=== PATIENT | female | born 1945 | race Caucasian/White ===

== ENCOUNTER 2020-10-23 07:05 | Outpatient (CLI) | payer OTHER, SELFPAY ==
--- NOTE | ~2020-10-23 | MM_ITS ---
EXAMINATION: MM screening tierra BI w jimmy HISTORY: Screening TECHNIQUE: Craniocaudal and mediolateral oblique 3-D tomosynthesis images were obtained and synthetic 2-D images were generated. CAD analysis was submitted and interpreted. COMPARISON: 10/06/2019 BREAST PARENCHYMAL COMPOSITION: There are scattered areas of fibroglandular density. FINDINGS: There is no evidence of suspicious mass, calcification, or architectural distortion to sugg est malignancy in either breast. There has been no suspicious interval change. IMPRESSION: 1. No mammographic evidence of malignancy. 2. Recommend routine screening mammography in one year. BI-RADS Category 1: Negative Reviewed, dictated and finalized at location A. CAL ASSISTANT SECRETARY
== END 2020-10-23 07:06 | disposition home or self-care (01) ==
LOC: ANHIMG 07:10
PROVIDERS: PCP Physician Assistant; Visit Provider Physician Assistant
DX: Z12.31 Encounter for screening mammogram for malignant neoplasm of breast (principal)
CPT/HCPCS: 77063; 77067

== ENCOUNTER → 2021-02-06 08:39 | Outpatient (CLI) | payer OTHER, SELFPAY ==
--- NOTE | ~2021-02-06 | XR_ITS ---
XR cervical spine 4-5V DATE: 02/06/2021 09:14 INDICATION: Posterior neck pain TECHNIQUE: Lateral, swimmer's, AP, odontoid views COMPARISON: None FINDINGS: There is minimal anterolisthesis at C3-4. There is 2.5 mm anterolisthesis at C4-5. There is severe degenerative disease at C5-6 and C6-7. C1 and C2 are normally aligned and the odontoid process is intact. No fracture or dislocation or locked facet is evident. No prevertebral soft tissue swelling. There is degenerative change of the apophyseal joints throughout the cervical spine. There is prominent uncovertebral joint spurring at C5-6 and C6-7 bilaterally. IMPRESSION: Minimal anterolisthesis at C3-4 2.5 mm anterolisthesis at C4-5 Severe degenerative disc disease and prominent uncovertebral joint spurring at C5-6 and C6-7 Degenerative change at the apophyseal joints throughout the cervical spine Reviewed, dictated and finalized at location B.
--- NOTE | ~2021-02-06 | XR_ITS ---
XR lumbar spine 2-3V DATE: 02/06/2021 09:14 INDICATION: Chronic back pain TECHNIQUE: AP, lateral, coned lateral lumbosacral views COMPARISON: None FINDINGS: There is diffuse osteopenia. There is mild levoscoliosis of the thoracolumbar spine. The lumbar pedicles are intact. No fracture or bone destruction is evident. There is moderate degenerative disc disease of the lumbar interspaces and severe degenerative disc di sease at L5-S1. The sacroiliac joints are intact. IMPRESSION: Diffuse osteopenia Multilevel degenerative disc disease, most severe at L5-S1 Reviewed, dictated and finalized at location B.
== END ==
PROVIDERS: PCP Physician Assistant; Visit Provider Physician Assistant
DX: M51.37 Other intervertebral disc degeneration, lumbosacral region (principal); M85.88 Other specified disorders of bone density and structure, other site; M50.322 Other cervical disc degeneration at C5-C6 level; M50.323 Other cervical disc degeneration at C6-C7 level
CPT/HCPCS: 72050; 72100

== ENCOUNTER 2021-07-28 20:34 | Emergency (ER) | payer OTHER, SELFPAY ==
[2021-07-28 20:35] VITALS: BP 172/103; PULSE 74; RESP 17; TEMP 36.1; O2SAT 95
--- NOTE | 2021-07-28 20:45 | PC.NURSE ---
Pt reports she was in [facility] and bent down to pet a dog, which then bit her in the face and ran away. unsure of breed, possibly a pit bull hanson or black in color. unknown if collar on dog; unknown if dog utd on shots. pt has wound directly on RIGHT eyebrow. bleeding present. gauze provided to apply pressure. pt appears anxious.
[2021-07-28] MEDS: TETANUS,DIPHTHERIA,AC PERTUSSIS ADULT (0.5 ML) BOOSTRIX IM (21:36)
[2021-07-28] MEDS: AMPICILLIN SULB 3 GM/NS 100 ML 3 GM/100 ML VIAL IVPB (21:37)
--- NOTE | 2021-07-28 21:54 | ED.GENADULT ---
HPI - General Adult General Chief complaint: Animal Bite Stated complaint: dog bite, facial wound Time Seen by Provider: 07/28/21 20:45 Source: patient Mode of arrival: ambulatory Limitations: intoxication History of Present Illness HPI narrative: Patient presents with chief complaint of dog bite to her right upper eyebrow and eyelid that she sustained prior to arrival by trying to pet a stray dog outside of the bar. The patient is unsure if she is up-to-date on her tetanus. Patient did have a few drinks while in the bar so that she and her were driving to the emergency department by the inserting operator. Patient denies changes in her vision or hearing, nausea, vomiting or any other injuries. Patient is not on any blood thinners. Related Data Allergies Allergy/AdvReac Type Severity Reaction Status Date / Time No Known Allergies Allergy Unknown Verified 07/28/21 21:11 Review of Systems Review of Systems: CONSTITUTIONAL: Denies fever, chills, or sweats. EYES: Denies visual changes, redness, or discharge. ENT: Denies rhinorrhea, congestion, sore throat, or otalgia. CARDIOVASCULAR: Denies chest pain, palpitations, or edema. RESPIRATORY: Denies cough or dyspnea. GASTROINTESTINAL: Denies abdominal pain, nausea, vomiting, or diarrhea. GENITOURINARY: Denies dysuria or hematuria. SKIN: Reports dog bite denies rash or itching. MUSCULOSKELETAL: Denies back pain, joint pain, or myalgia. NEUROLOGIC: Denies headache, numbness, dizziness, or weakness. PSYCHIATRIC: Denies anxiety or depression. Exam Narrative: GENERAL: Well-appearing, well-nourished, and in no acute distress. HEAD: Normocephalic, atraumatic. Approximately 1 inch x 1 inch dog bite with central tissue missing at its largest point to the right lower brow and upper area. Tissue cannot be approximated with manipulation. There is mild bleeding. Patient still able to open and close eyelid. Also noted in the room. EYES: PERRLA and EOMI. ENT: Nares clear, no rhinorrhea or epistaxis. Mucous membranes moist. Oropharynx without tonsillar hypertrophy exudate or other lesions. Bilateral TMs pearly avalos nonbulging NECK: Supple. No adenopathy or masses. CHEST: Clear to auscultation. No respiratory distress. No wheezes rales or rhonchi HEART: Regular rate and rhythm. EXTREMITIES: Normal range of motion. No edema. SKIN: Warm, dry, no rash. NEURO: No focal deficits. Alert and oriented x3. PSYCH: Patient is giddy and intoxicated, but can appropriately communicate. Course Vital Signs Vital signs: Vital Signs Temperature 97 F L 07/28/21 20:35 Pulse Rate 74 07/28/21 20:35 Respiratory Rate 17 07/28/21 20:35 Blood Pressure 172/103 H 07/28/21 20:35 Pulse Oximetry 95 07/28/21 20:35 Temperature 97 F L 07/28/21 20:35 Pulse Rate 74 07/28/21 20:35 Respiratory Rate 17 07/28/21 20:35 Blood Pressure 172/103 H 07/28/21 20:35 Pulse Oximetry 95 07/28/21 20:35 Medical Decision Making MDM Narrative Medical decision making narrative: Consult with Dr. Elias who states that he is out of town and cannot manage the patient. He recommends consult to ENT. Consult with Dr. Alberts who states that the patient needs to be transferred for plastics as well as facial reconstruction due to the breath of the injury. Consult with Dr. Boo facial plastics at [facility] who accepts patient pending ER acceptance. Patient is accepted by Dr. Fong in [facility] ER for ER to ER transfer. Patient and her asked that they can just present to school tomorrow but have been told this is not possible as the wound needs to be managed appropriately in a timely manner to prevent infection. Dr. Boo declines Unasyn inpatient management but is in agreement with Tdap booster. Vital Signs Vital Signs: Vital Signs Temperature 97 F L 07/28/21 20:35 Pulse Rate 74 07/28/21 20:35 Respiratory Rate 17 07/28/21 20:35 Blood Pressure 172/103 H 07/28/21 20:35 Pulse Oximetry 95 07/28
--- NOTE | 2021-07-28 22:09 | PC.NURSE ---
Report to [facility] ER charge nurse Jim @ [phone].
--- NOTE | 2021-07-28 23:06 | PC.NURSE ---
[facility] called with ETA update of 0014
[2021-07-29] VITALS: BP 147/87; PULSE 76; RESP 20; O2SAT 100
--- NOTE | 2021-07-29 00:01 | PC.NURSE ---
Updated [facility] ETA: 1215am. Pt updated on delay.
--- NOTE | 2021-07-29 00:24 | PC.NURSE ---
called [facility] for ETA update. ETA 15 minutes.
--- NOTE | 2021-07-29 00:35 | PC.NURSE ---
[facility] called to update ETA. ETA is 7813
--- NOTE | 2021-07-29 00:37 | PC.NURSE ---
New ETA for [facility]. Pt updated.
--- NOTE | 2021-07-29 00:49 | PC.NURSE ---
Pt dressing changed and more tape applied.
--- NOTE | 2021-07-29 01:15 | PC.NURSE ---
Attempted to find phone phd intern for pt's cell phone. Unfortunately, no samsung chargers in ED at this time. Awaiting EMS arrival.
--- NOTE | 2021-07-29 01:29 | PC.NURSE ---
Pt appears to be sleeping. Awaiting EMS.
--- NOTE | 2021-07-29 01:45 | PC.NURSE ---
Pt up to restroom unassisted.
--- NOTE | 2021-07-29 02:13 | PC.NURSE ---
Pt asked this RN and EMS on their arrival if pt's insurance will cover her visit to [facility]. This RN and EMS both informed pt that we do not have any access to pt billing, and she should call the number on her insurance card. This RN also asked registration if they knew if visit covered, and they reiterated same information this RN had already provided. Pt got on stretcher and blanket placed.
[2021-07-29 02:15] VITALS: BP 163/78; PULSE 73; RESP 18; TEMP 36.6; O2SAT 100
== END 2021-07-29 02:17 | disposition short-term general hospital (02) ==
PROVIDERS: Emergency Provider Emergency Medicine; PCP Physician Assistant
DX: S01.151A Open bite of right eyelid and periocular area, initial encounter (principal); Z23 Encounter for immunization; W54.0XXA Bitten by dog, initial encounter
CPT/HCPCS: 90471; 90715; 96365; 99285; J0295

== ENCOUNTER 2021-11-15 10:12 | Outpatient (CLI) | payer OTHER, SELFPAY ==
--- NOTE | ~2021-11-15 | DEXA_ITS ---
Bone Density Report Name: MARTHA STROUD Age: 76 Sex: Female Ethnicity: White Date of : 1945 Indication: postmenopausal; hysterectomy; rheumatoid arthritis; Referring Provider: ADDISON, ADDI Study: Bone densitometry was performed. Exam Date: November 15, 2021 Accession number: [id number] Bone Density: Region BMD T-score Z-score Classification AP Spine (L1-L4) 1.105 0.5 2.9 Normal Femoral Neck (Left) 0.599 -2.2 -0.2 Osteopenia Total Hip (Left) 0.798 -1.2 0.6 Osteopenia Total Hip Bilateral Avg 0.816 -1.0 0.8 Osteopenia Femoral Neck (Right) 0.617 -2.1 0.0 Osteopenia Total Hip (Right) 0.832 -0.9 0.9 Normal World Health Organization criteria for BMD impression classify patients as: Normal (T-score at or above -1.0), Osteopenia (T-score between -1.0 and -2.5), or Osteoporosis (T-score at or below -2.5). 10-year Fracture Risk: FRAX not reported because: Treated for osteoporosis Clinical Information Provided by Patient: Has rheumatoid arthritis Is being treated for osteoporosis Has used the following medications: Actonel (i.e. risedronate), Vitamin D, Calcium Has the following medical conditions: Hysterectomy Patient maximum height was 66 Menopause Age: 27 Drinks caffeinated beverages Onset of menses at age 15 Number of children 0 Impression: The patient has low bone mass, based on the Left Femoral Neck T-score. Discussion: It is important to ask patients whether they are taking their medications and to encourage continued and appropriate compliance with their osteoporosis therapies to reduce fracture risk. It is also important to review their risk factors and encourage appropriate calcium and vitamin D intakes, exercise, fall prevention and other lifestyle measures. Follow-Up: Consider a repeat BMD and Vertebral Fracture Assessment (VFA) exam in 2 years or sooner if medically necessary, to reassess this patient's status. Reported by: LELA on 11/15/2021 10:32:00 AM. Reviewed, dictated and finalized at location ASerge ALBERT
== END 2021-11-15 10:13 | disposition home or self-care (01) ==
LOC: ANHIMG 10:14
PROVIDERS: PCP Physician Assistant; Visit Provider Physician Assistant Medical
DX: M81.0 Age-related osteoporosis without current pathological fracture (principal); M85.852 Other specified disorders of bone density and structure, left thigh; M85.851 Other specified disorders of bone density and structure, right thigh
CPT/HCPCS: 77080

== ENCOUNTER → 2022-01-30 13:07 | Outpatient (CLI) | payer OTHER, SELFPAY ==
--- NOTE | ~2022-01-30 | XR_ITS ---
XR cervical spine 4-5V DATE: 01/30/2022 13:34 INDICATION: Posterior neck pain for a long time TECHNIQUE: AP, open-mouth, odontoid, lateral and swimmer views COMPARISON: 02/06/2021 cervical spine FINDINGS: There is straightening of the upper cervical spine and reversal of lower cervical curvature . There is approximately 1.5 mm anterolisthesis at C4-5. There is moderately severe degenerative disc disease at C5-6 and C6-7 with mild retrolisthesis an ant erior and posterior spurring at each of these levels.. C1 and C2 are normally aligned and the odontoid process is intact. No fracture or dislocation or lock ed facet is evident. There is prominent degenerative spurring at the uncovertebral joints bilaterally at C5-6 and C6-7. Th ere is degenerative change at the apophyseal joints. Bilateral apical capping. IMPRESSION: Straightening of upper cervical spine and reversal of lower cervical curvature Approximately 1.5 mm anterolisthesis at C4-5 Moderately severe degenerative disc disease, mild retrolisthesis and prominent uncovertebral joint sp urring at C5-6 and C6-7 Degenerative change at the apophyseal joints Reviewed, dictated and finalized at location A. IMPRESSION: Straightening of upper cervical spine and reversal of lower cervica l curvature Approximately 1.5 mm anterolisthesis at C4-5 Moderately severe degenerative disc disease, mild retrolisthesis and prominent uncovertebral joint spurring at C5-6 and C6-7 Degenerative change at the apophyseal joints
== END ==
PROVIDERS: PCP Physician Assistant; Visit Provider Physician Assistant
DX: M50.323 Other cervical disc degeneration at C6-C7 level (principal); M50.322 Other cervical disc degeneration at C5-C6 level
CPT/HCPCS: 72050

== ENCOUNTER 2022-02-06 13:13 | Emergency (ER) | payer OTHER, SELFPAY ==
--- NOTE | 2022-02-06 13:18 | ED.URI ---
HPI - URI/Sore Throat General Chief Complaint: Upper Respiratory Infection Stated Complaint: uri Time Seen by Provider: 02/06/22 13:26 Source: patient and RN notes reviewed Mode of arrival: ambulatory Limitations: no limitations History of Present Illness HPI Narrative: 76 y/o female presented for c/o sinus pressure, congestion, bilateral ear pain, productive cough green sputum for over one week. Endorses subjective fever/chills last night. Taking flonase for symptoms. Hx sinus infections. No other complaints at this time. Vaccinated for flu, boosted for covid. Denies sick contacts. MD elicited complaint: cough Related Data Home Medications Medication Instructions Recorded Confirmed duloxetine 60 mg PO DIRECTED 02/06/22 02/06/22 omeprazole 40 mg DIRECTED 02/06/22 02/06/22 risedronate 150 mg PO DIRECTED 02/06/22 02/06/22 rosuvastatin 20 mg DIRECTED 02/06/22 02/06/22 Allergies Allergy/AdvReac Type Severity Reaction Status Date / Time No Known Allergies Allergy Unknown Verified 07/28/21 21:11 Review of Systems Review of Systems: CONSTITUTIONAL: denies malaise, chills, sweats, fever EYES: Denies visual changes, redness, or discharge ENT: Reports rhinorrhea, congestion, sinus pain, otalgia, sore throat CARDIOVASCULAR: Denies chest pain, palpitations, edema RESPIRATORY: Reports cough, post nasal drainage. Denies dyspnea GASTROINTESTINAL: Denies abdominal pain, nausea, vomiting, diarrhea SKIN: Denies rash or itching MUSCULOSKELETAL: denies myalgia NEUROLOGIC: Denies headache Exam Narrative: GENERAL: Ill-appearing, nontoxic HEAD: Normocephalic EYES: conjunctivae clear ENT: Mucous membranes moist. TM pearly avalos with dull light reflex bilaterally; no tragal tenderness. Oropharynx erythematous without lesions or exudate, no drooling, no hoarseness, no trismus, uvula midline. NECK: Supple. No lymphadenopathy CHEST: Clear to auscultation, breath sounds equal. No wheezing, rhonchi, rales, or stridor. No respiratory distress, speaks in full sentences. HEART: Regular rate and rhythm. No murmur heard. SKIN: Warm, dry, no rash. NEURO: Alert and oriented x3. PSYCH: Normal mood and affect Course Course Emergency Course: Patient is aware of diagnosis, understands and agrees to treatment plan. Anticipatory guidance given. Patient agrees to follow-up as directed and is aware of reasons to seek care at the emergency department. Portions of this record may have been created with voice recognition software Level of Care: Express Care Visit Vital Signs Vital signs: reviewed MDM - URI/Sore Throat MDM Narrative Medical decision making narrative: Sx c/w URI. No concern for covid or influenza at this time, no concern for pneumonia. Appropriate for out pt treatment and f/u . Differential Diagnosis Differential diagnosis: Likely upper respiratory infection, sinusitis and viral infection Discharge Plan Discharge Clinical Impression: Upper respiratory infection Qualifiers: URI type: unspecified URI Qualified Code(s): J06.9 - Acute upper respiratory infection, unspecified Patient Disposition: Home, Self-Care Condition: Stable Instructions: Antibiotic Form, Upper Respiratory Infection (ED) Additional Instructions: Recommend Flonase spray and Zyrtec Over the counter Cough syrup may cause drowsiness; avoid driving or take it at night time. Tylenol 1000mg every 8 hours as needed for pain/pressure/fever Also, recommend symptomatic treatment includes: rest, fluids, and increase humidity of the air at home. Follow up with your primary care provider as needed in 1-2 weeks Go to the ER for worsening symptoms or concerns Prescriptions: New amoxicillin-pot clavulanate 875-125 mg tablet 1 tablet PO Q12H 7 Days Qty: 14 RF: 0 No Action omeprazole 40 mg capsule,delayed release(DR/EC) 40 mg DIRECTED RF: 0 rosuvastatin 20 mg tablet 20 mg DIRECTED RF: 0 duloxetine 60 mg capsule,delayed re
[2022-02-06 13:20] VITALS: BP 150/69; PULSE 75; RESP 16; TEMP 36.6; O2SAT 99
== END 2022-02-06 13:37 | disposition home or self-care (01) ==
PROVIDERS: Emergency Provider Nurse Practitioner Family; PCP Physician Assistant
DX: J06.9 Acute upper respiratory infection, unspecified (principal)
CPT/HCPCS: 99213; G0463

== ENCOUNTER 2022-10-24 13:11 | Emergency (ER) | payer OTHER, SELFPAY ==
[2022-10-24 13:23] VITALS: BP 126/83; PULSE 81; RESP 18; TEMP 36.8; O2SAT 98
--- NOTE | 2022-10-24 13:26 | ED.GENADULT ---
HPI - General Adult General Chief complaint: Neck Pain/Injury Stated complaint: neck pain Time Seen by Provider: 10/24/22 13:30 Source: patient, RN notes reviewed and old records reviewed Mode of arrival: ambulatory Limitations: no limitations History of Present Illness HPI narrative: 77-year-old female presents to the [facility] complaints of neck pain. Patient reports right lateral neck pain without any type of injury. No midline tenderness. No numbness or tingling in extremities. Has full range of motion of the neck. Reviewed x-ray that was done on January 30 to similar symptoms Onset (ago): day(s) (4) Related Data Home Medications Medication Instructions Recorded Confirmed duloxetine 60 mg capsule,delayed 60 mg PO DIRECTED 02/06/22 02/06/22 release omeprazole 40 mg capsule,delayed 40 mg DIRECTED 02/06/22 02/06/22 release risedronate 150 mg tablet 150 mg PO DIRECTED 02/06/22 02/06/22 rosuvastatin 20 mg tablet 20 mg DIRECTED 02/06/22 02/06/22 bupropion HCl 150 mg 24 hr tablet, mg PO 10/24/22 extended release Allergies Allergy/AdvReac Type Severity Reaction Status Date / Time No Known Allergies Allergy Unknown Verified 10/24/22 13:18 Review of Systems Review of Systems: All systems reviewed & are unremarkable except as noted in HPI and below Constitutional: Constitutional: Reports no additional constitutional complaints Eyes: Eyes: Reports no additional eye complaints ENT: Reports system reviewed and no additional complaints, except as documented Cardiovascular: Cardiovascular: Reports no additional cardiovascular complaints, Denies chest pain and Denies dyspnea Respiratory: Respiratory: Reports no additional respiratory complaints, Denies chest congestion, Denies cough and Denies dyspnea Gastrointestinal: Gastrointestinal: Reports no additional gastrointestinal complaints, Denies abdominal pain, Denies nausea and Denies vomiting Musculoskeletal: Musculoskeletal: Reports as per HPI Integumentary/Breasts: Skin/Breast: Reports system reviewed and no additional complaints, except as docu Neurologic: Reports system reviewed and no additional complaints, except as documented Psychiatric: Psychiatric: Reports no additional psychiatric complaints Allergic/Immunologic: Allergic/Immunologic: Reports no additional allergic/immunologic complaints PMFSH Comments At the time of my signature, I reviewed and agree with the nursing past medical, surgical, social, and family history. There is no relevant family history pertinent to the patient complaint. Exam Const: General: cooperative, healthy appearing, comfortable, no acute distress, well developed, alert, average body habitus and well nourished Nutritional Appearance: average body habitus and well nourished Orientation/consciousness: patient oriented x3 Limitations: no limitations HENMT: Head: normal to inspection Ears: hearing grossly normal bilaterally and external ears normal Face/Nose/Sinus: Normal external nose present, Normal nares present, Normal nasal mucous membranes and turbinates present and normal facial exam Face and sinus: normal facial exam Mouth: Yes Normal oral and palatal mucosa present, Yes lip normal and Yes moist mucous membranes Throat: posterior oropharynx normal and uvula midline Eyes: General: appearance normal, both eyes and all related structures Alignment and Position: alignment normal Periorbital: periorbital findings normal Conjunctivae: conjunctivae normal Pupils: Equal, round and reactive pupils present EOM: EOMs intact bilaterally Neck: Neck: normal visual inspection, full ROM, no lymphadenopathy and no meningeal signs Other: Tenderness along right lateral extending along the trapezius muscle to right shoulder. No midline tenderness. Full range of motion. No swelling noted. Chest: Chest palpation & inspection: normal inspection of the chest Resp: Effort & Inspection: normal respiratory effort
== END 2022-10-24 13:45 | disposition home or self-care (01) ==
PROVIDERS: Emergency Provider Nurse Practitioner; PCP Physician Assistant
DX: S16.1XXA Strain of muscle, fascia and tendon at neck level, initial encounter (principal); X58.XXXA Exposure to other specified factors, initial encounter; K21.9 Gastro-esophageal reflux disease without esophagitis; M19.90 Unspecified osteoarthritis, unspecified site; M06.9 Rheumatoid arthritis, unspecified
CPT/HCPCS: 99213; G0463

== ENCOUNTER 2022-11-17 15:51 | Emergency (ER) | payer OTHER, SELFPAY ==
--- NOTE | ~2022-11-17 | XR_ITS ---
EXAM: XR shoulder LT min 2V DATE: 11/17/2022 16:34 HISTORY: trauma, FALL . COMPARISON: None available. FINDINGS: Normal mineralization. Comminuted proximal left humeral fracture with anterior one half sh aft width displacement and posterior angulation. No lytic or blastic lesion. Degenerative change in t he AC joint. No erosion or periosteal change. Soft tissues within normal limits. IMPRESSION: Comminuted, angulated, and displaced proximal left humeral fracture. Reviewed, dictated and finalized at location K. GN AGENT IMPRESSION: Comminuted, angulated, and displaced proximal left humeral fracture .
--- NOTE | ~2022-11-17 | CT_ITS ---
EXAMINATION: CT brain wo con DATE: 11/17/2022 16:23 INDICATION: minor head injury . TECHNIQUE: Computed tomography (CT) of the head was performed without intravenous contrast. The mA wa s adjusted according to patient size. Iterative reconstruction technique was employed. The dose-lengt h product was 756.67 mGy-cm. COMPARISON: None. FINDINGS: Motion limited examination. No acute intracranial hemorrhage or extra-axial fluid collection. No hydrocephalus, mass, or herniation. No acute ischemic infarct. Unremarkable dural venous sinus attenuation. No acute osseous abnormality. The aerated spaces are clear. Mild atrophy and chronic white matter change. Atherosclerotic intracranial calcification. Bilateral l ens replacements. IMPRESSION: No acute intracranial process. Reviewed, dictated and finalized at location K. EMIC COACH
[2022-11-17 15:51] VITALS: BP 150/79; PULSE 66; RESP 18; TEMP 36.3; O2SAT 99
--- NOTE | 2022-11-17 16:34 | ED.FALL ---
HPI - Fall General Chief Complaint: Fall Stated Complaint: fall - shoulder pain History of Present Illness HPI Narrative: Patient is a 77-year-old female who presents ER with left shoulder pain. Patient was couple steps up a ladder putting away items when her dog ran beneath her and she fell backwards. She fell directly onto her left shoulder and also struck her head on the ground. No loss of consciousness. Sudden onset pain left shoulder. Placed in sling and swath by EMS. Received morphine and still has pain with any type of movement. No numbness or tingling to the extremity. Patient is not on blood thinners. Related Data Home Medications Medication Instructions Recorded Confirmed duloxetine 60 mg capsule,delayed 60 mg PO DIRECTED 02/06/22 02/06/22 release omeprazole 40 mg capsule,delayed 40 mg DIRECTED 02/06/22 02/06/22 release risedronate 150 mg tablet 150 mg PO DIRECTED 02/06/22 02/06/22 rosuvastatin 20 mg tablet 20 mg DIRECTED 02/06/22 02/06/22 bupropion HCl 150 mg 24 hr tablet, mg PO 10/24/22 extended release Allergies Allergy/AdvReac Type Severity Reaction Status Date / Time No Known Allergies Allergy Unknown Verified 10/24/22 13:18 Review of Systems Review of Systems: All systems reviewed & are unremarkable except as noted in HPI and below Constitutional: Constitutional: Denies chills, Denies fatigue and Denies fever(s) Eyes: Eyes: Denies change in vision Cardiovascular: Cardiovascular: Reports no additional cardiovascular complaints Respiratory: Respiratory: Reports no additional respiratory complaints Gastrointestinal: Gastrointestinal: Reports no additional gastrointestinal complaints Musculoskeletal: Musculoskeletal: Reports arthralgias and Reports joint swelling Neurologic: Reports system reviewed and no additional complaints, except as documented PMFSH Past Medical History Medical History (Updated 11/17/22 @ 17:25 by Mina Velázquez MD) Anxiety Depression GERD (gastroesophageal reflux disease) Hypercholesterolemia Rheumatoid arthritis Surgical History Surgical History (Updated 11/17/22 @ 16:37 by Mina Velázquez MD) History of hysterectomy Exam Narrative: GENERAL: Well-appearing, well-nourished, and in no acute distress. HEAD: Normocephalic, atraumatic. EYES: PERRL and EOMI. NECK: Supple. CHEST: Clear to auscultation. No respiratory distress. HEART: Regular rate and rhythm. Normal peripheral pulses. EXTREMITIES: Venous evaluation of left upper extremity reveals it is mainly swelling and some lifting arm with tenderness at the shoulder as well as effusion. No tenderness or swelling at the wrist or elbow. Sensation and pulses intact throughout the affected extremity. SKIN: Warm, dry, no rash. NEURO: No focal deficits. Alert and oriented x3. PSYCH: Normal mood and affect. Course Reevaluation(s) Reevaluation #1: I reviewed the images and discussed imaging results with Dr. Clark last orthopedic surgery. He would recommend placing the patient in a shoulder immobilizer and giving her pain control. She will follow her up on an outpatient basis. Patient educated in regards to treatment plan and verbalized understanding. Date: 11/17/22 Time: 16:50 Vital Signs Vital signs: Vital Signs Temperature 97.4 F L 11/17/22 15:51 Pulse Rate 66 11/17/22 15:51 Respiratory Rate 18 11/17/22 15:51 Blood Pressure 150/79 H 11/17/22 15:51 Pulse Oximetry 99 11/17/22 15:51 Oxygen Delivery Room Air 11/17/22 15:51 Temperature 97.4 F L 11/17/22 15:51 Pulse Rate 66 11/17/22 15:51 Respiratory Rate 18 11/17/22 15:51 Blood Pressure 150/79 H 11/17/22 15:51 Pulse Oximetry 99 11/17/22 15:51 Oxygen Delivery Room Air 11/17/22 15:51 MDM - Fall Imaging Data Radiologist's impression: ITS Impressions Shoulder X-Ray 11/17/22 16:37 IMPRESSION: Comminuted, angulated, and displaced proximal left humeral fracture.
[2022-11-17] MEDS: MORPHINE SULFATE (*CRX) 4 MG/ML INJ IV PUSH (17:10)
[2022-11-17 18:25] VITALS: BP 148/78; PULSE 67; RESP 18; O2SAT 99
== END 2022-11-17 18:29 | disposition home or self-care (01) ==
PROVIDERS: Emergency Provider Emergency Medicine; PCP Physician Assistant
DX: S42.292A Other displaced fracture of upper end of left humerus, initial encounter for closed fracture (principal); S09.90XA Unspecified injury of head, initial encounter; E78.00 Pure hypercholesterolemia, unspecified; M06.9 Rheumatoid arthritis, unspecified; K21.9 Gastro-esophageal reflux disease without esophagitis; F41.9 Anxiety disorder, unspecified; F32.A Depression, unspecified; Z90.710 Acquired absence of both cervix and uterus; W11.XXXA Fall on and from ladder, initial encounter
CPT/HCPCS: 70450; 73030; 96374; 99284; J2270

== ENCOUNTER 2023-04-26 12:05 | Emergency (ER) | payer OTHER, SELFPAY ==
[2023-04-26 12:15] VITALS: BP 138/70; PULSE 81; RESP 12; TEMP 36.7; O2SAT 99
--- NOTE | 2023-04-26 12:30 | ED.EAR ---
HPI - Ear Problem General Chief complaint: Ear Stated complaint: Neck Pain/Ears Irritation Time Seen by Provider: 04/26/23 12:20 Source: patient Mode of arrival: ambulatory Limitations: no limitations History of Present Illness HPI Narrative: Dona is a 77-year-old female patient presenting to the clinic today with complaints of right-sided neck/ears/lymph node swelling. She reports this has been going off and on x2 weeks. Denies any known fever or chills. Denies any shortness of breath or chest pain. Denies any recent weight loss or fatigue. Has been nasally congested and is complaining of some slight dizziness at times Related Data Home Medications Medication Instructions Recorded Confirmed duloxetine 60 mg capsule,delayed 60 mg PO DIRECTED 02/06/22 02/06/22 release omeprazole 40 mg capsule,delayed 40 mg DIRECTED 02/06/22 02/06/22 release risedronate 150 mg tablet 150 mg PO DIRECTED 02/06/22 02/06/22 rosuvastatin 20 mg tablet 20 mg DIRECTED 02/06/22 02/06/22 bupropion HCl 150 mg 24 hr tablet, mg PO 10/24/22 extended release cevimeline 30 mg capsule 04/26/23 Allergies Allergy/AdvReac Type Severity Reaction Status Date / Time No Known Allergies Allergy Unknown Verified 04/26/23 12:16 Review of Systems Review of Systems: Pertinent positives per HPI. Patient denies any fever, chills, rash, headache, visual changes, dizziness, cough, shortness of breath, chest pain, palpitations, nausea, vomiting, diarrhea, constipation, abdominal pain, or any urinary issues. PMFSH Past Medical History Medical History (Updated 04/26/23 @ 12:31 by Aubrey Riley APRN) Anxiety Depression GERD (gastroesophageal reflux disease) Hypercholesterolemia Rheumatoid arthritis Surgical History Surgical History (Updated 11/17/22 @ 16:37 by Mina Velázquez MD) History of hysterectomy Comments At the time of my signature, I reviewed and agree with the nursing past medical, surgical, social, and family history. There is no relevant family history pertinent to the patient complaint. Exam Narrative: General: Well-developed, well nourished, in no apparent distress Head: Normocephalic, atraumatic Eyes: Pupils equally round and reactive to light bilaterally, EOM intact, sclera and conjunctive clear, no discharge, lids normal Ears: Right tMs intact and congested, left TM intact and clear ear canals clear, no drainage, grossly hearing normal. Nose: Nares patent, clear nasal discharge, no inflammation, no sinus tenderness. Mouth: Oral pharynx without lesions or masses, good dentition, MMM. Neck: Supple, trachea midline, mild enlargement of right posterior submandibular nodes, no thyroid masses or goiter palpable. Cardio: Regular rate and rhythm, s1 and s2 normal, no murmur appreciated. Resp: Clear to auscultation bilaterally, no rhonchi, rales, wheezing or rubs Course Course Emergency Course: Portions of this record may have been created with voice recognition software. Level of Care: Express Care Visit Vital Signs Vital signs: Vital Signs Temperature 36.7 C 04/26/23 12:15 Pulse Rate 81 04/26/23 12:15 Respiratory Rate 12 04/26/23 12:15 Blood Pressure 138/70 04/26/23 12:15 Pulse Oximetry 99 04/26/23 12:15 Oxygen Delivery Room Air 04/26/23 12:15 Temperature 36.7 C 04/26/23 12:15 Pulse Rate 81 04/26/23 12:15 Respiratory Rate 12 04/26/23 12:15 Blood Pressure 138/70 04/26/23 12:15 Pulse Oximetry 99 04/26/23 12:15 Oxygen Delivery Room Air 04/26/23 12:15 Vital signs reviewed Medical Decision Making MDM Narrative Medical decision making narrative: At the time of visit patient is resting comfortably on the exam table. I suspect patient has right-sided eustachian tube dysfunction will send in prescription for some prednisone. She does have mild swelling of the right posterior submandibular lymph node. History of benign lymph node biopsy
== END 2023-04-26 12:37 | disposition home or self-care (01) ==
PROVIDERS: Emergency Provider Nurse Practitioner Family; PCP Physician Assistant
DX: H69.91 Unspecified Eustachian tube disorder, right ear (principal); R59.1 Generalized enlarged lymph nodes; K21.9 Gastro-esophageal reflux disease without esophagitis; E78.00 Pure hypercholesterolemia, unspecified; M06.9 Rheumatoid arthritis, unspecified; F41.9 Anxiety disorder, unspecified; F32.A Depression, unspecified
CPT/HCPCS: 99213; G0463

== ENCOUNTER 2023-08-14 11:59 | Emergency (ER) | payer OTHER, SELFPAY ==
--- NOTE | 2023-08-14 12:01 | ED.FEMALEGU ---
HPI - Female Genitourinary General Chief complaint: Urogenital-Female Stated complaint: UTI/Back Pain Time Seen by Provider: 08/14/23 12:01 Source: patient Mode of arrival: ambulatory Limitations: no limitations History of Present Illness MD elicited complaint: other (Dona is a 78-year-old female patient presenting to the clinic today with complaints of right lower back pain x1 week. She reports that the pain has gradually gotten worse. Denies any saddle anesthesia or loss of bowel or bladder. No known injury. Does have history of more frequent falls.) Related Data Home Medications Medication Instructions Recorded Confirmed duloxetine 60 mg capsule,delayed 60 mg PO DIRECTED 02/06/22 08/14/23 release omeprazole 40 mg capsule,delayed 40 mg DIRECTED 02/06/22 08/14/23 release risedronate 150 mg tablet 150 mg PO DIRECTED 02/06/22 08/14/23 rosuvastatin 20 mg tablet 20 mg DIRECTED 02/06/22 08/14/23 bupropion HCl 150 mg 24 hr tablet, 150 mg PO DAILY 10/24/22 08/14/23 extended release Xeljanz 04/26/23 cevimeline 30 mg capsule 30 mg PO DAILY 04/26/23 08/14/23 Allergies Allergy/AdvReac Type Severity Reaction Status Date / Time No Known Allergies Allergy Unknown Verified 08/14/23 12:08 Review of Systems Review of Systems: Pertinent positives per HPI. Patient denies any fever, chills, rash, headache, visual changes, dizziness, cough, runny nose, sore throat, shortness of breath, chest pain, palpitations, nausea, vomiting, diarrhea, constipation, abdominal pain, or any urinary issues. PMFSH Past Medical History Medical History (Updated 08/14/23 @ 12:47 by Aubrey Riley APRN) Anxiety Depression GERD (gastroesophageal reflux disease) Hypercholesterolemia Rheumatoid arthritis Surgical History Surgical History History of hysterectomy Comments At the time of my signature, I reviewed and agree with the nursing past medical, surgical, social, and family history. There is no relevant family history pertinent to the patient complaint. Exam Narrative: General: Well-developed, well nourished, in no apparent distress Head: Normocephalic, atraumatic. Cardio: Regular rate and rhythm, s1 and s2 normal, no murmur appreciated. Resp: Clear to auscultation bilaterally, no rhonchi, rales, wheezing or rubs. Musculoskeletal: No deformity, tender to palpation over the right SI joint, straight leg test elicit tenderness over the SI joint, patellar reflexes 2+ bilaterally, grossly normal range of motion, muscle strength strong and equal, peripheral pulse strong, no edema, no cyanosis, normal gait and station Course Course Emergency Course: Portions of this record may have been created with voice recognition software. Level of Care: Express Care Visit Vital Signs Vital signs: Vital signs reviewed MDM - Female Genitourinary MDM Narrative Medical decision making narrative: At the time of visit patient is resting on the exam table. I suspect patient has right SI joint dysfunction. Will send a prescription in for a Medrol Dosepak. Supportive measures were discussed with the patient she voiced understanding discharge instructions and agrees to treatment plan. Differential Diagnosis Differential diagnosis: Likely urinary tract infection, cystitis and other (SI joint dysfunction, low back pain, low back pain with sciatica) Discharge Plan Discharge Clinical Impression: SI (sacroiliac) joint dysfunction Patient Disposition: Home, Self-Care Condition: Stable Instructions: Antibiotic Form, Acute Low Back Pain (ED) Additional Instructions: Take any prescription medication only as prescribed. Be mindful of sedation precautions given to you if taking a muscle relaxer. May use heat or ice to the affected area Consider massage or chiropractor adjustment if this was discussed with provider May use blue emu, lidocaine patches,
[2023-08-14 12:15] VITALS: BP 131/60; PULSE 86; RESP 18; TEMP 36.3; O2SAT 99
== END 2023-08-14 12:53 | disposition home or self-care (01) ==
PROVIDERS: Emergency Provider Nurse Practitioner Family; PCP Physician Assistant
DX: M99.04 Segmental and somatic dysfunction of sacral region (principal); Z79.899 Other long term (current) drug therapy
CPT/HCPCS: 81003; 99213; G0463

== ENCOUNTER 2023-10-07 08:26 | Outpatient (CLI) | payer OTHER, SELFPAY ==
--- NOTE | ~2023-10-07 | MM_ITS ---
EXAMINATION: MM screening [place] BI w jimmy HISTORY: Screening mammogram TECHNIQUE: Craniocaudal and mediolateral oblique 3-D tomosynthesis images were obtained and synthetic 2-D images were generated. CAD analysis was submitted and interpreted. COMPARISON: 10/23/2020, 10/06/2019 bilateral screening mammogram examinations BREAST PARENCHYMAL COMPOSITION: There are scattered areas of fibroglandular density. FINDINGS: There is no evidence of suspicious mass, calcification, or architectural distortion to sugg est malignancy in either breast. There has been no suspicious interval change. IMPRESSION: 1. No mammographic evidence of malignancy. 2. Recommend routine screening mammography in one year. BI-RADS Category 1: Negative Reviewed, dictated and finalized at location A. HER LOADER OPERATOR
== END 2023-10-07 08:27 | disposition home or self-care (01) ==
PROVIDERS: PCP Physician Assistant; Visit Provider Physician Assistant
DX: Z12.31 Encounter for screening mammogram for malignant neoplasm of breast (principal)
CPT/HCPCS: 77063; 77067

== ENCOUNTER 2024-04-15 08:59 | Outpatient (CLI) | payer OTHER, SELFPAY ==
--- NOTE | ~2024-04-15 | DEXA_ITS ---
Bone Density Report Name: MARTHA STROUD Age: 78 Sex: Female Ethnicity: White Date of : 1945 Indication: osteopenia; height loss; history of glucocorticoids; hysterectomy; rheumatoid arthritis; Referring Provider: ADDISON, ADDI Study: Bone densitometry was performed. Exam Date: April 15, 2024 Accession number: [id number] Bone Density: Region BMD T-score Z-score Classification AP Spine(L1-L4) 1.130 0.8 3.3 Normal Femoral Neck (Left) 0.620 -2.1 0.1 Osteopenia Total Hip (Left) 0.861 -0.7 1.3 Normal Femoral Neck (Right) 0.622 -2.0 0.2 Osteopenia Total Hip (Right) 0.859 -0.7 1.3 Normal Total Hip Mean 0.860 -0.7 1.3 Normal World Health Organization criteria for BMD impression classify patients as: Normal (T-score at or above -1.0), Osteopenia (T-score between -1.0 and -2.5), or Osteoporosis (T-score at or below -2.5). 10-year Fracture Risk(1): Major Osteoporotic Fracture 28% Hip Fracture 10.0% Reported Risk Factors: [place] (), Neck BMD=0.620, BMI=27.7, glucocorticoids, rheumatoid arthritis (1) FRAX(R) Version 3.08. Fracture probability calculated for an untreated patient. Fracture probability may be lower if the patient has received treatment. Previous Exams: Region Exam Age BMD T-score BMD Change BMD Change Date g/cm2 vs Baseline vs Previous AP Spine (L1-L4) 04/15/2024 78 1.130 0.8 0.025 (2.2%)# 0.025 (2.2%)# 11/15/2021 76 1.105 0.5 Total Hip(Left) 04/15/2024 78 0.861 -0.7 0.063 (7.9%)# 0.063 (7.9%)# 11/15/2021 76 0.798 -1.2 Total Hip(Right) 04/15/2024 78 0.859 -0.7 0.027 (3.3%)# 0.027 (3.3%)# 11/15/2021 76 0.832 -0.9 *Denotes significance at 95% confidence level, LSC for AP Spine = 0.022 g/cm2, LSC for Total Hip = 0.027 g/cm2 # Denotes dissimilar scan types or analysis methods Clinical Information Provided by Patient: Has taken Glucocorticoids Has rheumatoid arthritis Has used the following medications: Calcium Has the following medical conditions: Hysterectomy Patient maximum height was 66.0 Menopause Age: 27 Onset of menses at age 15 Number of children 0 Impression: The patient has low bone mass, based on the Left Femoral Neck T-score. The patient has an estimated ten-year risk of hip fracture of 10% and an estimated ten-year risk of major fracture of 28%, based on the WHO FRAX algorithm. The patient has risk factors, including: history of glucocorticoid th
== END 2024-04-15 09:00 | disposition home or self-care (01) ==
PROVIDERS: PCP Physician Assistant; Visit Provider Physician Assistant Medical
DX: M81.0 Age-related osteoporosis without current pathological fracture (principal); M85.89 Other specified disorders of bone density and structure, multiple sites
CPT/HCPCS: 77080

== ENCOUNTER 2024-05-13 13:25 | Outpatient (CLI) | payer OTHER, SELFPAY ==
--- NOTE | ~2024-05-13 | XR_ITS ---
XR foot RT 2V Ordering provider: Chana Duggan, POWER History: . rheumatoid arthritis . Comparison: None. FINDINGS: BONES: No acute fracture or dislocation. Calcaneal spur. JOINT SPACES: Narrowing of the distal interphalangeal joints which may indicate osteoarthritic change s. Mild osteopenia of the bones. No tarsal coalition. SOFT TISSUES: Ossification of the insertion of the tendo Achilles. IMPRESSION: No acute osseous abnormality of the right foot. 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 Reviewed, dictated and finalized at location A.
--- NOTE | ~2024-05-13 | XR_ITS ---
XR foot LT 2V Ordering provider: Chana Duggan, POWER History: . rheumatoid arthritis . Comparison: None. FINDINGS: BONES: Healing fracture in the proximal phalanx of the little toe. Mild osteopenia of the bones. JOINT SPACES: Osteoarthritic changes of the distal interphalangeal joints. No tarsal coalition. SOFT TISSUES: Normal. Calcaneal spur. IMPRESSION: Healing fracture in the proximal phalanx of the little toe. Reviewed, dictated and finalized at location A.
--- NOTE | ~2024-05-13 | XR_ITS ---
XR hand LT 2V Ordering provider: Chana Duggan, POWER History: . rheumatoid arthritis . Comparison: None. FINDINGS: BONES: No acute fracture or dislocation. JOINT SPACES: Well maintained. SOFT TISSUES: Unremarkable. IMPRESSION: No acute osseous abnormality left hand. No definite evidence of rheumatoid arthritis. Reviewed, dictated and finalized at location A.
--- NOTE | ~2024-05-13 | XR_ITS ---
XR hand RT 2V Ordering provider: Chana Duggan, POWER History: . rheumatoid arthritis . Comparison: None. FINDINGS: BONES: No acute fracture or dislocation. Small erosive area seen in the distal epiphysis of the middl e phalanx of the second finger with adjacent bony fragment which may indicate a fracture or erosive l esion. JOINT SPACES: Normal. SOFT TISSUES: Normal. IMPRESSION: No acute osseous abnormality right hand. Small erosive area seen in the distal epiphysis of the middle phalanx of the second finger with adjac ent bony fragment which may indicate a fracture or erosive lesion. No definite evidence of rheumatoid arthritis. Reviewed, dictated and finalized at location A. IMPRESSION: No acute osseous abnormality right hand. Small erosive area seen in the distal epiphysis of the middle phalanx of the se cond finger with adjacent bony fragment which may indicate a fracture or erosiv e lesion. No definite evidence of rheumatoid arthritis.
== END 2024-05-13 13:26 ==
LOC: MICIMG 13:26
PROVIDERS: PCP Physician Assistant Medical; Visit Provider Physician Assistant Medical
DX: M06.09 Rheumatoid arthritis without rheumatoid factor, multiple sites (principal); S92.512A Displaced fracture of proximal phalanx of left lesser toe(s), initial encounter for closed fracture; X58.XXXA Exposure to other specified factors, initial encounter; M19.071 Primary osteoarthritis, right ankle and foot
CPT/HCPCS: 73120; 73620

== ENCOUNTER 2024-06-04 08:16 | Outpatient (CLI) | payer OTHER, SELFPAY ==
--- NOTE | ~2024-06-04 | CT_ITS ---
CT Scan of the Chest without Contrast: Clinical Indication: Lung cancer screening, nicotine dependence Technique: Contiguous sections were acquired throughout the chest without intravenous contrast. Dose reduction technique was used on this scan by utilizing automated exposure control and iterative recon struction technique. The dose-length product (DLP) was 97.66 mGy-cm. Findings: There is no evidence of any significant mediastinal, hilar or axillary lymphadenopathy. Coronary amy ry calcifications are present. There is no evidence of pleural or pericardial effusion. Several small calcific granulomas are present. 4 mm anterior right middle lobe pulmonary nodule prese nt. 4 mm right lower lobe pulmonary nodule present (axial image 92). 3 mm left lower lobe pulmonary n odule present (axial image 86). Additional 3 mm left lower lobe pulmonary nodule present (axial image 70). Probable mild emphysema. 4 mm right apical pulmonary nodule present (axial image 18). Images through the upper abdomen reveal no abnormalities. Impression: Lung RADS 2: Benign appearance. 12 month follow-up screening CT advised. Reviewed, dictated and finalized at location . Impression: Lung RADS 2: Benign appearance. 12 month follow-up screening CT advised.
== END 2024-06-04 08:17 ==
PROVIDERS: PCP Physician Assistant; Visit Provider Physician Assistant
DX: Z12.2 Encounter for screening for malignant neoplasm of respiratory organs (principal); Z87.891 Personal history of nicotine dependence; G89.29 Other chronic pain; M25.561 Pain in right knee; M25.562 Pain in left knee
CPT/HCPCS: 71271; 73562

== ENCOUNTER 2024-07-09 09:23 | Outpatient (CLI) | payer OTHER, SELFPAY ==
--- NOTE | ~2024-07-09 | XR_ITS ---
XR shoulder RT min 2V Ordering provider: Lizzette Bunn, POWER History: . No injury right shoulder pain and tingling for 1 month . Comparison: None FINDINGS: BONES: No acute fracture or dislocation. JOINT SPACES: The acromioclavicular joint is normal. The glenohumeral joint is normal. SOFT TISSUES: Normal. IMPRESSION: No acute osseous abnormality right shoulder. Reviewed, dictated and finalized at location A.
== END 2024-07-09 09:24 ==
LOC: MICIMG 09:25
PROVIDERS: PCP Physician Assistant; Visit Provider Physician Assistant
DX: M25.511 Pain in right shoulder (principal); G89.29 Other chronic pain
CPT/HCPCS: 73030

== ENCOUNTER → 2025-02-16 10:35 | Outpatient (CLI) | payer MEDICARE, SELFPAY ==
--- NOTE | ~2025-02-16 | XR_ITS ---
Lumbosacral Spine: AP and lateral views Clinical History: Pain Findings: The normal lordotic curve is maintained. No fracture or subluxation evident. There is sever e degenerative disc narrowing at L5-S1. There is mild to moderate degenerative disc change throughout the remainder of the lumbar spine. There is advanced facet arthropathy from L4 through S1. There is mild to moderate facet arthropathy at the upper lumbar spine. The sacroiliac joints are normally outl ined. Impression: Moderate to advanced degenerative spondylosis, as above. Reviewed, dictated and finalized at location M. Impression: Moderate to advanced degenerative spondylosis, as above.
== END ==
PROVIDERS: PCP Physician Assistant; Visit Provider Physician Assistant
DX: M47.896 Other spondylosis, lumbar region (principal)
CPT/HCPCS: 72100

== ENCOUNTER 2025-04-01 12:03 | Emergency (ER) | payer MEDICARE, SELFPAY ==
[2025-04-01 12:10] VITALS: BP 133/66; PULSE 74; RESP 12; TEMP 36.4; O2SAT 100
--- NOTE | 2025-04-04 08:24 | ED_ITS ---
HPI - Extremity Problem General Chief complaint: Extremity Problem,Nontraumatic Stated complaint: right shoulder pain Source: patient Mode of arrival: ambulatory Limitations: no limitations History of Present Illness HPI Narrative: Patient is a 71-year-old female presents with right shoulder pain for 1 week. Patient states over the last few days it has worsened. Does states she is not currently having pain because she took 1500 mg of Tylenol this morning and has been alternating ice and heat. Had similar symptoms several months ago and was seen by PCP. Patient had an x-ray and was referred to PT but never went because pain resolved. Patient states she was working in her yd prior to symptoms starting. Denies any numbness, tingling or weakness down arm. Related Data Home Medications Medication Instructions Recorded Confirmed Last Taken Type duloxetine 60 mg capsule,delayed 60 mg PO DIRECTED 02/06/22 08/14/23 Unknown History release omeprazole 40 mg capsule,delayed 40 mg DIRECTED 02/06/22 08/14/23 Unknown History release risedronate 150 mg tablet 150 mg PO DIRECTED 02/06/22 08/14/23 Unknown Histor y rosuvastatin 20 mg tablet 20 mg DIRECTED 02/06/22 08/14/23 Unknown History bupropion HCl 150 mg 24 hr tablet, 150 mg PO DAILY 10/24/22 08/14/23 Unknown History extended release Xeljanz 04/26/23 Unknown History cevimeline 30 mg capsule 30 mg PO DAILY 04/26/23 08/14/23 Unknown History Allergies Allergy/AdvReac Type Severity Reaction Status Date / Time No Known Allergies Allergy Unknown Verified 04/02/25 11:30 Review of Systems Review of Systems: All systems reviewed & are unremarkable except as noted in HPI and below Constitutional: Constitutional: Denies body ache(s), Denies chills, Denies fatigue, Denies fever(s), Denies headache(s), Denies malaise and Denies weakness Eyes: Eyes: Denies blurry vision, Denies irritation and Denies loss of vision ENT: Denies otalgia, Denies headache(s), Denies nasal discharge, Denies sinus pain and Denies sore throat Cardiovascular: Cardiovascular: Denies chest pain, Denies irregular heart rhythm and Denies dyspnea Respiratory: Respiratory: Denies dyspnea Gastrointestinal: Gastrointestinal: Denies abdominal pain, Denies melena, Denies hematochezia, Denies diarrhea, Denies nausea and Denies vomiting Musculoskeletal: Musculoskeletal: Denies back pain, Denies myalgias and Reports arthralgias Integumentary/Breasts: Skin/Breast: Denies pruritus and Denies rash Neurologic: Denies headache(s), Denies loss of vision and Denies weakness Psychiatric: Psychiatric: Reports no additional psychiatric complaints Endocrine: Endocrine: Denies fatigue PMFSH Past Medical History Medical History GERD (gastroesophageal reflux disease) Anxiety Depression Hypercholesterolemia Rheumatoid arthritis Surgical History Surgical History History of hysterectomy Comments At time of signature, agree with nursing past medical, surgical, social and family history. There is no relevant family history pertinent to the presenting complaint. Exam Const: General: cooperative, healthy appearing, comfortable, no acute distress and well nourished Nutritional Appearance: well nourished Orientation/consciousness: patient oriented x3 Limitations: no limitations HENMT: Head: normal to inspection, normocephalic and atraumatic Ears: hea ring grossly normal bilaterally and external ears normal Face/Nose/Sinus: Normal external nose present, normal facial exam and face symmetric Face and sinus: normal facial exam and face symmetric Mouth: Yes lip normal Eyes: General: appearance normal, both eyes and all related structures Alignment and Position: alignment normal and position normal Periorbital: periorbital findings normal Eyelids: eyelids normal Pupils: Equal, round and reactive pupils present EOM: EOMs intact bilaterally Neck: Neck: normal visual inspection, full ROM and supple Chest: Chest palpation & inspection: normal inspection of the chest Resp: Effort & Inspection: normal respiratory effort and able to speak in complete sentences Auscultation: clear to auscultation bilaterally Cardio: Rate: regular rate Rhythm: regular rhythm Heart sounds: S1 normal heart sound present and S2 normal heart sound present GI: Inspection: normal to inspection Skin: General skin exam: normal color and no rashes or lesions noted Neuro: General: patient oriented x3 and moves all extremities Cranial nerves: Yes Equal, round and reactive pupils present Speech: normal speech Gait exam (Neuro): Normal gait present Extrem: General: normal to inspection, full ROM and no edema Right upper extremity: shoulder/upper arm normal to inspection, tenderness (right neck muscle, right trapezius) over the subacromial bursa, axillary nerve sensory function normal and normal ROM; no swelling, no deformity and no unusual warmth and elbow/forearm normal to inspection, normal ROM and distal pulses intact; no tenderness and no swelling Psych: Appearance: grossly normal and well kempt Mental Status: mental status grossly normal Speech and movement: Normal speech and movement present Affect: normal affect Attitude: cooperative Thought process: Normal thought process present Course Course Emergency Course: Patient is aware of diagnosis, understands and agrees to treatment plan. Anticipatory guidance given. Patient agrees to follow-up as directed and is aware of reasons to seek care at the emergency department. Portions of this record may have been created with voice recognition software Level of Care: Express Care Visit Vital Signs Vital signs: Vital Signs Temperature 36.4 C 04/01/25 12:10 Pulse Rate 74 04/01/25 12:10 Respiratory Rate 12 04/01/25 12:10 Blood Pressure 133/66 04/01/25 12:10 Pulse Oximetry 100 04/01/25 12:10 Temperature 36.4 C 04/01/25 12:10 Pulse Rate 74 04/01/25 12:10 Respiratory Rate 12 04/01/25 12:10 Blood Pressure 133/66 04/01/25 12:10 Pulse Oximetry 100 04/01/25 12:10 Reviewed MDM - Extremity (Nontraumatic) MDM Narrative Medical decision making narrative: Pt well hydrated appearing, in no respiratory distress, hemodynamically stable. Recommend supportive care. The patient is stable at time of discharge the clinical impression was discussed and the patient was given the opportunity to ask questions, which were addressed as completely as possible given the information available at present. Anticipatory guidance and return to care precautions were discussed and the importance of primary care follow-up was stressed and encouraged. The patient voiced understanding of the plan, indications to return, and the need for follow-up. Exam findings show no acute concerns or changes Patient is appropriate for outpatient treatment and follow-up. Differential Diagnosis Differential diagnosis: Likely other (Shoulder strain, bursitis, cervical radiculopathy) Discharge Plan Discharge Clinical Impression: Right shoulder strain Qualifiers: Encounter type: initial encounter Qualified Code(s): S46.911A - Strain of unspecified muscle, fascia and tendon at shoulder and upper arm level, right arm, initial encounter Patient Disposition: Home Condition: Stable Instructions: Shoulder Sprain (ED) Additional Instructions: See written instructions as well Minimize activities that aggravate the condition The RICE protocol. Follow the RICE protocol as soon as possible after your injury:. Ice should be immediately applied to keep the swelling down. It can be used for 20 to 30 minutes, three or four times daily. Do not apply ice directly to your skin. Compression dressings, bandages or davion-wraps will immobilize and support your injured wrist. Elevate your Wrist above the level of your heart as often as possible during the first 48 hours. Medication: Nonsteroidal anti-inflammatory drugs (NSAIDs) such as ibuprofen and naproxen can help control pain and swelling. Because they improve function by sissy th reducing swelling and controlling pain, they are a better option for mild sprains than narcotic pain medicines. Please schedule a follow-up visit with your personal physician for further evaluation and treatment within 1week OR If your symptoms persist, change or worsen significantly before you can contact your personal physician then please, without delay, go to the emergency department for further evaluation. Patient Language: Arabic Prescriptions: No Action cevimeline 30 mg capsule 30 mg PO DAILY Xeljanz methylprednisolone [Medrol (Linus)] 4 mg tablets,dose pack See Rx Instructions .ROUTE .COMPLEX Qty: 21 0RF Rx Instructions: orally per package directions omeprazole 40 mg capsule,delayed release(DR/EC) 40 mg DIRECTED rosuvastatin 20 mg tablet 20 mg DIRECTED duloxetine 60 mg capsule,delayed release(DR/EC) 60 mg PO DIRECTED risedronate 150 mg tablet 150 mg PO DIRECTED bupropion HCl 150 mg tablet extended release 24 hr 150 mg PO DAILY docusate sodium [Colace] 100 mg capsule 100 mg PO DAILY Qty: 10 0RF Follow-up/Referrals: UNKNOWN,DOCTOR [Primary Care Provider] -
== END 2025-04-01 13:09 | disposition home or self-care (01) ==
LOC: EXPCOLL 12:10
PROVIDERS: Emergency Provider Nurse Practitioner Family
DX: S46.911A Strain of unspecified muscle, fascia and tendon at shoulder and upper arm level, right arm, initial encounter (principal); X58.XXXA Exposure to other specified factors, initial encounter; Y93.H9 Activity, other involving exterior property and land maintenance, building and construction; K21.9 Gastro-esophageal reflux disease without esophagitis; E78.00 Pure hypercholesterolemia, unspecified; M06.9 Rheumatoid arthritis, unspecified; F41.9 Anxiety disorder, unspecified; F32.A Depression, unspecified
CPT/HCPCS: 99213; G0463

== ENCOUNTER → 2025-06-01 09:32 | Outpatient (CLI) | payer MEDICARE, SELFPAY ==
--- NOTE | ~2025-06-01 | XR_ITS ---
3 VIEWS LUMBAR SPINE Ordering provider: Lizzette Bunn, POWER History: . NECK PAIN, RT SIDED LOW BACK PAIN . Comparison: None. FINDINGS: VERTEBRAL BODIES:Minimal anterolisthesis at the level of L5-S1. No visible fracture or subluxation. Degenerative changes of the spine. DISK SPACES: Narrowing of the disc L4-L5 and L5-S1. Multilevel facet joint disease. SOFT TISSUES: Atherosclerotic changes of the aorta. IMPRESSION: No acute osseous abnormality lumbar spine. Multilevel degenerative disc disease. Reviewed, dictated and finalized at location A.
--- NOTE | ~2025-06-01 | XR_ITS ---
Cervical Spine: AP, lateral, open-mouth views Clinical History: Pain Findings: The normal lordotic curve is maintained. No fracture evident. There is 6 mm anterolisthesis of C4-C5. There is minimal grade I anterolisthesis of C3 over C4. There is severe degenerative disc narrowing at C5-C6 and C6-C7. There is extensive facet arthropathy throughout the cervical spine with left neural foraminal narrowing in particular at C4-C5 and C5-C6. Pre-vertebral soft tissues are unr emarkable. Impression: Advanced degenerative spondylosis, as above. 6 mm anterolisthesis of C4 over C5. Reviewed, dictated and finalized at location M. Impression: Advanced degenerative spondylosis, as above. 6 mm anterolisthesis of C4 over C5 .
== END ==
PROVIDERS: PCP Physician Assistant; Visit Provider Physician Assistant
DX: M54.2 Cervicalgia (principal); M54.41 Lumbago with sciatica, right side; G89.29 Other chronic pain; M51.369 Other intervertebral disc degeneration, lumbar region without mention of lumbar back pain or lower extremity pain; M43.02 Spondylolysis, cervical region
CPT/HCPCS: 72050; 72110

== ENCOUNTER 2025-07-28 14:36 | Outpatient (CLI) | payer MEDICARE, SELFPAY ==
--- OUTSIDE RECORDS SUMMARY | 2007-05-05 07:48 | XMS_ITS | Continuity of Care Document ---
Author Organization [facility] Address [address] [place] [address] [address] [place] [address] Phone Care Team Providers Care Gun Synchronizer Name Role Phone Kay Medrano Unavailable Unavailable Procedures Procedure Date Office/outpatient Visit, [facility] Advance Directives Directive Yes / No Effective Date File Name No Information Encounters Encounter Description Practice Location Reason(s) For Visit Diagnoses Date Provider Providers Copied on Encounter Office/outpat ient Visit, [facility] [[email or web address]], [address] [place] [address] [address], [place], [place], [id number], [place] tel:[phone] [facility] No Information [address] , [address], [place], [address], [place]. tel:[phone] Family History Family Member Type Diagnosis Age At Onset No Information Payers Payer name Insurance type Covered democrat ID Authoriza tion(s) [employer] [facility] [id number] Social History Type Description Quantity Date Captured Comments Sex Female Smoking Status No Information Chief Complaint And Reason For Visit No Information Reason For Referral Reason For Referral No Information History Of Present Illness Encounter Date Complaint History Of Prese nt Illness No Information Functional Status Date Functional Assessmen t No Information Instructions Date Instruction Additional Infor mation No Information Assessments Type Assessment Date No Information Patient Care Teams Name Effective Dates (start - stop) Status Members No Information
--- OUTSIDE RECORDS SUMMARY | 2016-01-02 08:00 | XMS_ITS | Continuity of Care Document ---
Author Organization [facility] Address [address] [address] Phone Care Team Providers Care Senior Corporate Accountant Name Role Phone Tomas Ma MD Unavailable Unavailable Allergies, Adverse Reactions, Alerts Substance Reaction Status Criticality No Known Allergies Active No Inform ation Medications Medication Instructions Dosage Effective Dates (start - stop) Status Comments PRILOSEC (unknown strength) Not Available - Active LEXAPRO (unknown strength) Not Available - Active XANAX (unknown strength) Not Available - Active IBUPROFEN (unknown strength) Not Available - Active Procedures Procedure Date OFFICE/OUTPATIENT VISIT EST OFFICE/OUTPATIENT VISIT EST OFFICE/OUTPATIENT VISIT EST OFFICE/OUTPATIENT VISIT EST OFFICE/OUTPATIENT VISIT EST OFFICE/OUTPATIENT VISIT EST OFFICE/OUTPATIENT VISIT NEW Advance Directives Directive Yes / No Effective Date File Name No Information Encounters Encounter Description Practice Location Reason(s) For Visit Diagnoses Date Provider Providers Copied on Encounter OFFICE/OUTPA TIENT VISIT EST [facility], [address] [place] [address], [address], [place] [phone] [facility]- f/u bilateral CTS (chief complaint) Bilateral carpal tunnel syndromeCarpal tunnel syndrome, left upper limb 6 Anil Marin. [address] [place], [place], [id number] . tel:[phone] OFFICE/OUTPA TIENT VISIT EST [facility], [address] [place] [address], [address], [place] tel:[phone] [facility] WC- f/u bilateral CTS (chief complaint) Left carpal tunnel syndromeRight carpal tunnel syndrome 0- 5 Anil Marin. [address] [place], [place], [id number] . tel: [phone] OFFICE/OUTPA TIENT VISIT [facility], [address] [place] [address], [address], [place] tel:[phone] [facility] Carpal tunnel syndrome Jul- 5 Anil Marin. [address] [place], [place], [id number] . tel: [phone] OFFICE/OUTPA TIENT VISIT [facility], [address] [place] [address], [facility], [place] tel:[phone] [facility] [place] Carpal tunnel syndrome Apr- 5 Anil Marin. [address] [place], [place], [id number] . tel: [phone] OFFICE/OUTPA TIENT VISIT [facility], [address] [place] [address], [address], [place] tel:[phone] [facility] [place] Carpal tunnel syndrome 5 Anil Marin. [address] [place], [place], [id number] . tel: [phone] OFFICE/OUTPA TIENT VISIT [facility], [address] [place] [address], [address], [place] tel:[phone] [facility] [place] EMG REVIEW (chief complaint) Carpal tunnel syndrome 5 Anil Marin. [address] [place], [place], [id number] . tel: [phone] OFFICE/OUTPA TIENT VISIT [facility], [address] [place] [address], [address], [place] tel:[phone] [facility] [place] hands and wrists (chief complaint) Carpal tunnel syndrome 4 Anil Marin. [address] [place] [address], [id number] . tel:[phone] Family History Family Member Type Diagnosis Age At Onset No Information Payers Payer name Insurance type Covered green party ID Authoriza tiindra(s) No Information Social History Type Description Quantity Date Captured Comments Alcohol Use Details Unknown Caffeine Use Details Unknown Tobacco Use Status Smoking Status No Information Sex Female Vital Signs Date / Time: Height Weight BMI Pulse Rate Blood Pressure Temperature Respiratory Rate Body Surface Area Head Circumference Head Circ. Percentile Wt./Mo. Percentile BMI percentile Pulse Ox Inhaled Ox 1:06 PM 66.00 in 65.771 kg (145.00 lbs) 23.4 0 kg/m eter (2) 138/74 mm[Hg] Chief Complaint And Reason For Visit From encounter dated '01/02/2016 13:00'. WC- f/u bilateral CTS (chief complaint) Reason For Referral Reason For Referral No Information Plan Of Treatment Date Type Action Status Referral Ordered: RADEX HAND MINIMUM 3 VIEWS Bilateral ordered Referral Ordered: MUSC TEST DONE W/N TEST COMP (EMG/NCS) Bilateral UPPER EXTREMITIES ordered History Of Present Illness Encounter Date Complaint History Of Prese nt Illness WC- f/u bilateral CTS WC- f/u bilateral CTS EMG REVIEW hands and wrists Functional Status Date Functional Assessmen t No Information Instructions Date Instruction Additional Infor mation Activity as tolerated. Related t o Bilateral carpal tunnel syndrome Take medications as directed. Re lated to Bilateral carpal tunnel syndrome Take medications as directed. Re lated to Right carpal tunnel syndrome Apply ice as instructed. Related to Right carpal tunnel syndrome Activity as tolerated. Related t o Right carpal tunnel syndrome Apply ice as instructed. Related to Carpal tunnel syndrome Activity as tolerated. Related t o Carpal tunnel syndrome Take medications as directed. Re lated to Carpal tunnel syndrome Assessments Type Assessment Date assessment Bilateral carpal tunnel syndrome assessment Carpal tunnel syndrome, left upp er limb Patient Care Teams Name Effective Dates (start - stop) Status Members No Information
--- NOTE | ~2025-07-28 | XR_ITS ---
EXAMINATION: XR hip RT min 2V, 07/28/2025 14:55 CDT HISTORY: RIGHT GROIN PAIN COMPARISON: No comparisons available. Findings: No acute fracture or malalignment. Moderate degenerative changes with calcific tendinopathy Soft tissues unremarkable. Impression: No acute fracture or malalignment. Reviewed, dictated and finalized at location A. Impression: No acute fracture or malalignment.
--- OUTSIDE RECORDS SUMMARY | 2025-07-28 16:21 | XMS_ITS | Clinical Summary ---
Author Organization [facility] [address] Address [address] [place] [address] Care Team Providers Care Aerospace Engineer Name Role Phone Keira Gu MD Primary Care Provider [phone] Allergies No known active allergies Medications folic acid (FOLVITE) 1 mg tablet TAKE 3 TABLETS BY MOUTH EVERY DAY 1 08/03/20 18 Active methotrexate (RHEUMATREX) 2.5 mg Tablet TAKE 8 TABLETS BY MOUTH ONCE A WEEK 1 07/01/20 18 Active tiZANidine (ZANAFLEX) 4 mg Tablet TAKE 2 TABLETS BY MOUTH TWICE A DAY NEEDED 0 07/14/20 18 Active rosuvastatin (CRESTOR) 10 mg tabletIndications: Hyperlipidemia, unspecified hyperlipidemia type Take 1 Tablet (10 mg) by mouth daily at bedtime. 90 Tablet 3 10/16/20 18 Active triamcinolone acetonide (NASACORT) 55 mcg nasal sprayIndications:N on-seasonal allergic rhinitis, unspecified trigger Administer 1 Downey in each nostril daily. 17 Gram 3 10/16/20 18 Active omeprazole (PriLOSEC) 20 mg Capsule, Delayed Release(E.C.) Take 1 Capsule (20 mg) by mouth daily. 90 Capsule 3 10/16/20 18 Active cefdinir (OMNICEF) 300 mg capsuleIndications :Upper respiratory tract infection, unspecified type Take 1 Capsule (300 mg) by mouth every 12 hours. 20 Capsule 10/26/20 18 Active predniSONE (DELTASONE) 20 mg tablet Take 1 Tablet (20 mg) by mouth see administration instructions One twice a day for seven days then one daily.. 21 Tablet 11/26/19 19 Active ALPRAZolam (XANAX) 0.25 mg tabletIndications: SHLOMO (generalized anxiety disorder) TAKE 1 TABLET BY MOUTH NIGHTLY NEEDED FOR ANXIETY. 30 Tablet 04/26/20 19 Active Active Problems Problem Noted Date Diagnosed Date Chronic obstructive pulmonar y disease with acute lower respiratory infection 10/18/2018 Inflammatory arthritis 10/18/2018 RA (rheumatoid arthritis) 09/09/2018 Hyperlipidemia 09/09/2018 Gastroesophageal reflux disease 09/09/2018 Generalized anxiety disorder 09/09/2018 Allergic rhinitis 09/09/2018 Resolved Problems Problem Noted Date Diagnosed Date Resolved Date Chronic bronchitis 10/18/2018 8 Chronic bronchitis 09/09/2018 8 Immunizations Immunization Administration Dates Next Due (ADACEL/BOOSTRIX)(10 YR UP) TDAP VACCINE, 0.5ML, IM 06/10/2011 PNEUMOVAX (PPSV23) pneumococ barb polysaccharide 23-valent Vaccine 12/23/2014 Family History Medical History Relation Name Comments Other Father Alzheimer's Disease Mother Other Mother Relation Name Status Comments Brother 1 Alive Brother 2 Alive Father Mother Social History Tobacco Use Types Packs/Day Years Used Date Smoking Tobacco: Former Smokeless Tobacco: Never Tobacco Cessation:Counseling Given: Yes Alcohol Use Standard Drinks/Week Comments Yes 0 (1 standard drink = 0.6 oz pur e alcohol) socially occasionally Comments Unknown Sex and Gender Information Value Date Recorded Sex Assigned at Not on file Legal Sex Female 11:48 PM CDT Gender Identity Not on file Sexual Orientation Not on file Last Filed Vital Signs Vital Sign Reading Time Taken Comments Blood Pressure 110/68 11/26/2018 3:14 PM MANUFACTURING ANALYST Pulse 74 11/26/2018 3:14 PM MANUFACTURING ANALYST Temperature 36.8 C (98.2 F) 09/21/2018 9:51 AM MANUFACTURING ANALYST Respiratory Rate 14 11/26/2018 3:14 PM MANUFACTURING ANALYST Oxygen Saturation - - Inhaled Oxygen Concentration - - Weight 73 kg (161 lb) 11/26/2018 3:14 PM MANUFACTURING ANALYST Height 167.6 cm (5' 6) 11/26/2018 3:14 PM MANUFACTURING ANALYST Body Mass Index 25.99 11/26/2018 3:14 PM MANUFACTURING ANALYST Plan of Treatment Health Maintenance Due Date Last Done Comments ZOSTER VACCINE (1 of 2) 1996 OSTEOPOROSIS SCREENING 2011 PNEUMOCOCCAL VACCINE 50+ YEA RS (2 of 2 - PCV) 02/16/2016 02/15/2015, 12/23/2014 DTAP/TDAP/TD VACCINES (3 - Td or Tdap) 06/10/2021, 05/21/2011 RSV VACCINE (60+ or ) (1 - 1-dose 75+ series) 2021 Medicare [place]) Prev entative Visit/Annual Wellness Visit 11/17/2024 INFLUENZA VACCINE (#1) 2025 Insurance [facility] MCR Care Teams Aerospace Engineer Relationship Specialty Start Date End Date Keira Gu MD [address] [address] PCP - General 07/14/18
--- OUTSIDE RECORDS SUMMARY | 2025-07-28 16:21 | XMS_ITS | Encounter Summary ---
Author Organization [facility] Address [address] [place] [address] Phone Care Team Providers Care Oracle Database Manager Name Role Phone Lizzette Bunn Primary Care Provider [phone] Tristan Henson MD Unavailable [phone] Encounter Details Date Type Department Care Team (Latest Contact Info) Description 07/05/2025 Results Follow-Up [facility] [address] [place] [address] Chana Duggan PA [facility] [place] [address] CBC with auto differential, Comprehensive metabolic panel, CRP (acute phase), Erythrocyte sedimentation rate Social History Tobacco Use Types Packs/Day Years Used Date Smoking Tobacco: Former Cigarettes Smokeless Tobacco: Never Comments:Smoking History Pac ks/day: 1 Packs Alcohol Use Standard Drinks/Week Comments Yes 0 (1 standard drink = 0.6 oz pur e alcohol) AUDIT-C Answer Date Recorded Q1: How often do you have a drink containing alc ohol? 2-3 times a week 05/31/2025 Q2: How many drinks containi ng alcohol do you have on a typical day when you are drinking? 3 or 4 05/31/2025 Q3: How often do you have si x or more drinks on one occasion? Less than monthly 05/31/2025 PHQ-2 Answer Date Recorded PHQ-2 Total Score (If total score is 3 or more points, staff should administer the PHQ-9) 1 05/31/2025 Personal Safety Answer Date Recorded Have you ever been in or are you currently in a harmful physical or emotional relationship or is someone making you feel afraid or unsafe? Denies 04/27/2024 Comments Unknown Sex and Gender Information Value Date Recorded Sex Assigned at Not on file Legal Sex Female 9:32 PM DEVELOPMENT ANALYST Gender Identity Female 01/05/2021 10:27 AM DEVELOPMENT ANALYST Sexual Orientation Straight 01/05/2021 10 :27 AM DEVELOPMENT ANALYST documented as of this encounter Plan of Treatment Not on file documented as of this encounter Visit Diagnoses Not on filedocumented in this encounter Care Teams Oracle Database Manager Relationship Specialty Start Date End Date Lizzette Bunn PA [address] [facility] [address] [place] [address] PCP - General Internal Medicine 09/26/20 Tristan Henson MD [address] [place] [address] Consulting Physician Rheumatology 03/29/24 documented as of this encounter
--- OUTSIDE RECORDS SUMMARY | 2025-07-28 16:21 | XMS_ITS | Encounter Summary ---
Author Organization [facility] Address [address] [place] [address] Phone Care Team Providers Care Tc Operator Name Role Phone Santosh PITTMAN MD, Andrew Zhong Unavailable [phone] Tomas Williamson MD Primary Care Provider [phone] Lizzette Bunn Primary Care Provider [phone] Tomas Williamson MD Primary Care Provider [phone] Lizzette Bunn Primary Care Provider [phone] Tristan Henson MD Unavailable [phone] Encounter Details Date Type Department Care Team (Late st Contact Info) Description 01/01/2018 Orders Only [facility] ProviderPhilip MD [address] [place] [id number] Social History Tobacco Use Types Packs/Day Years Used Date Smoking Tobacco: Heavy Smoker Comments:Smoking History Pac ks/day: 1 Packs Alcohol Use Standard Drinks/Week Comments Yes 0 (1 standard drink = 0.6 oz pur e alcohol) Comments Unknown Sex and Gender Information Value Date Recorded Sex Assigned at Not on file Legal Sex Female 9:32 PM LEVEL VIAL INSIDE GRINDER Gender Identity Female 01/05/2021 10:27 AM LEVEL VIAL INSIDE GRINDER Sexual Orientation Straight 01/05/2021 10 :27 AM LEVEL VIAL INSIDE GRINDER documented as of this encounter Plan of Treatment Not on file documented as of this encounter Procedures Procedure Name Priority Date/Time Associated Diagnosis Comments DISCHARGE LABORATORY CUMULATIVE REPORT 01/01/2018 12:00 AM LEVEL VIAL INSIDE GRINDER documented in this encounter Results * DISCHARGE LABORATORY CUMULATIVE REPORT (01/01/2018 12:00 AM LEVEL VIAL INSIDE GRINDER) Narrative 01/01/2018 12:00 AM LEVEL VIAL INSIDE GRINDER Ordered by an unspecified provider. us Historical Provider LAB BLOOD ORDERABLES Paulina l Result documented in this encounter Visit Diagnoses Not on filedocumented in this encounter Additional Health Concerns Infection Onset Date Last Indicated Resolved Time COVID: Suspected 09/26/2020 09/27/2020 09/29/2020 5:07 AM LEVEL VIAL INSIDE GRINDER Respiratory Infection (TYRONE), contact + droplet Comment:Automatically added due to negative COVID-19 result. 09/29/2020 09/29/2020 10/13/2020 3:0 6 AM LEVEL VIAL INSIDE GRINDER COVID: Suspected 12/19/2020 12/20/2020 12/20/2020 9:28 PM LEVEL VIAL INSIDE GRINDER COVID19 12/20/2020 12/20/2020 01/03/2021 3:07 AM LEVEL VIAL INSIDE GRINDER COVID: Recovered Comment:Added based on recent COVID infection. 01/03/2021 01/03/2021 05/03/2021 3:05 AM C DT COVID: Suspected 07/05/2022 07/05/2022 07/05/2022 11:30 PM CDT COVID: Suspected 11/25/2023 11/25/2023 11/25/2023 10:13 AM LEVEL VIAL INSIDE GRINDER documented as of this encounter Care Teams Tc Operator Relationship Specialty Start Date End Date Tomas Williamson MD [address] [place] [address] PCP - General Family Medicine 01/01/19 07/28/19 Lizzette Bunn PA [address] [facility] [facility] [address] [place] [address] PCP - General Internal Medicine 07/29/19 09/21/20 Tomas Williamson MD [address] [place] [address] PCP - General Family Medicine 09/22/20 09/25/20 Lizzette Bunn PA [address] [place] [address] PCP - General Internal Medicine 09/26/20 Andrew Frost III, MD [address] [place] [address] Rheumatology 09/26/17 07/28/19 Tristan Henson MD [address] [place] [address] Consulting Physician Rheumatology 03/29/24 documented as of this encounter
--- OUTSIDE RECORDS SUMMARY | 2025-07-28 16:21 | XMS_ITS | Clinical Summary ---
Author Organization [facility] Address [address] [place] [address] Care Team Providers Care Slot Editor Name Role Phone Lizzette Bunn Primary Care Provider [phone] Tristan Henson MD Unavailable [phone] Allergies Active Allergy Reactions Criticality Noted Date Comments Levonorgestrel-Ethin yl Estrad Cough,Other (See comments) Low 08/13/2021 Drainage Drainage Medications cholecalciferol (VITAMIN D-3) 2000 unit capsule Take 1 capsule (2,000 Units total) by mouth daily Active BIOTIN ORAL Take by mouth Acti ve risedronate (ACTONEL) 150 mg tablet Tale 1 tablet once a month with water on empty stomach, nothing by mouth or lie down for next 30 minutes. 1 tablet 1 4 Active upadacitinib (Rinvoq) 15 mg tablet extended release 24 hr Take by mouth Ac tive triamcinolone (KENALOG) 0.1 % cream Apply topically 2 (two) times a day 30 g 1 4 Active Additional Information Patient not taking.Reported on 07/20/2025 cyanocobalamin (Vitamin B-12) 500 mcg tablet Take 1 tablet (500 mcg total) by mouth Active DULoxetine DR (CYMBALTA) 60 mg capsuleIndicati ons:Moderate episode of recurrent major depressive disorder (HCC) Take 1 capsule (60 mg total) by mouth daily 90 capsule 2 5 Active rosuvastatin (CRESTOR) 20 mg tablet Take 1 tablet (20 mg total) by mouth daily 90 tablet 2 5 Active albuterol HFA (PROVENTIL HFA,VENTOLIN HFA,PROAIR HFA) 90 mcg/actuation inhaler Inhale 2 puffs every 6 (six) hours as needed for wheezing 1 each 1 5 Active cyclobenzaprine (FLEXERIL) 5 mg tabletIndicatio ns:Lumbar back pain Take 1 tablet (5 mg total) by mouth every 8 (eight) hours as needed for muscle spasms 20 tablet 5 Active sennosides 8.6 mg capsule Take 8.6 mg by mouth 2 (two) times a day Active omeprazole (PriLOSEC) 40 mg capsule TAKE 1 CAPSULE (40 MG TOTAL) BY MOUTH DAILY. 90 capsule 2 5 Active hydroxychloroqu ine (PLAQUENIL) 200 mg tablet TAKE 1.5 TABLETS BY MOUTH DAILY. 45 tablet 3 5 Active Active Problems Problem Noted Date Diagnosed Date Right groin pain 07/25/2025 Chronic left shoulder pain 07/25/2025 Heel pain 07/25/2025 BMI 25.0-25.9,adult 07/20/2025 Assessment & Plan (07/20/2025 3:40 PM CDT): Weight/BMI is in healthy range. Continue healthy lifestyle to maintain. Cervical spondylosis 07/04/2025 Overview (07/04/2025): Xray c-spine 06/01/25: 6mm anterolisthesis of C4-5. Minimal grade 1 listhesis of C3-4. Severe disk narrowing at C5-6 and C6-7. Extensive facet arthropathy throughout the c-spine with L neural foraminal narrowing in particular at C4-5 and C5-6. Assessment & Plan (07/04/2025 5:19 PM CDT): Xray c-spine 06/01/25: 6mm anterolisthesis of C4-5. Minimal grade 1 listhesis of C3-4. Severe disk narrowing at C5-6 and C6-7. Extensive facet arthropathy throughout the c-spine with L neural foraminal narrowing in particular at C4-5 and C5-6. Currently doing PT and recommend continuing until visits run out or she reaches goals. If radicular symptoms persist at that time then may need MRI Lumbar spondylosis 07/04/2025 Overview (07/04/2025): Xray L-spine 06/01/25: minimal anterolisthesis L5-S1. Degenerative changes of the spine. Narrowing of L4-5 and L5-S1 disk spaces. Multilevel facet arthritis. Atherosclerotic changes of the aorta. Assessment & Plan (07/04/2025 5:19 PM CDT): Xray L-spine 06/01/25: minimal anterolisthesis L5-S1. Degenerative changes of the spine. Narrowing of L4-5 and L5-S1 disk spaces. Multilevel facet arthritis. Atherosclerotic changes of the aorta. Continue with PT Moderate episode of recurrent major depressive d isorder 02/20/2025 Assessment & Plan (02/20/2025 7:26 PM CDT): Symptoms are stable with Cymbalta 60 Abnormal CBC 10/23/2024 Assessment & Plan (12/20/2024 1:51 PM ELECTRICAL MAINTENANCE MECHANIC): Has had mild chronic anemia with slight macrocytosis. Iron panel normal, b12 improved with supplementation. PCP referred to hematology for further eval. Discussed that it is possible that she has anemia of chronic disease due to RA (or CKD), but good to r/o other etiologies. Assessment & Plan (10/23/2024 10:22 PM ELECTRICAL MAINTENANCE MECHANIC): Persistent abnormal CBC. persistent Low RBCs, H/H in the 10s MCV is now over 100 B12 is normal (up from 398 to 1295) Iron panel and ferritin are normal Refer to hematology for assistance to see if there is any other intervention that is needed. BMI 24.0-24.9, adult 10/12/2024 Assessment & Plan (05/31/2025 10:26 AM CDT): Weight/BMI is in healthy range. Continue healthy lifestyle to maintain. Assessment & Plan (02/11/2025 7:56 AM CDT): Weight/BMI is in healthy range. Continue healthy lifestyle to maintain. Assessment & Plan (10/12/2024 9:03 AM ELECTRICAL MAINTENANCE MECHANIC): Weight/BMI is in healthy range. Continue healthy lifestyle to maintain. Chronic right shoulder pain 07/17/2024 Assessment & Plan (07/17/2024 9:29 PM CDT): Patient has noted right shoulder pain. Will check x-ray. No known injury so will recommend topical patches and Tylenol or ibuprofen as tolerated. We will provide order for physical therapy. Follow up in 6-8 weeks if symptoms do not improve Smoking history 06/06/2024 Assessment & Plan (06/06/2024 5:52 PM CDT): Continue with smoking cessation Discussed with patient Lung Cancer screening options with the patient. Encouraged LowDose CT Patient is between 55 - 78 yo. Is a current smoker or quit in the last 15 years. Has a 30+pack years smoking history. Is currently without any signs or symptoms of lung cancer. Is willing to consider curative lung surgery if needed. [id number] Chronic pain of both knees 06/06/2024 Assessment & Plan (06/06/2024 5:53 PM CDT): This is a significant, separately identifiable problem that was evaluated and managed on the same day as the wellness exam Patient with persistent chronic bilateral knee pain. Will start with knee x-rays to see if there are changes. Tylenol arthritis as needed and topicals. Sicca 07/01/2022 Assessment & Plan (02/20/2025 7:24 PM CDT): Continue per [facility] Assessment & Plan (12/20/2024 1:24 PM ELECTRICAL MAINTENANCE MECHANIC): Likely secondary sjogren's. Uses biotene products and eye drops already. Using cevimeline qhs only with good relief Assessment & Plan (10/23/2024 10:16 PM ELECTRICAL MAINTENANCE MECHANIC): Managed by [facility] Assessment & Plan (06/21/2024 5:49 PM CDT): Likely secondary sjogren's. Uses biotene products and eye drops already. Using cevimeline qhs only with good relief Assessment & Plan (06/06/2024 5:54 PM CDT): Continue per [facility]. They manage her rheumatoid arthritis and with Plaquenil and renvoiq They continue to monitor kidney function as it is affected by the dosing Assessment & Plan (11/25/2023 10:37 AM ELECTRICAL MAINTENANCE MECHANIC): Continue per [facility] Assessment & Plan (11/15/2023 9:54 PM ELECTRICAL MAINTENANCE MECHANIC): Continue with [facility] for management of her rheumatoid arthritis it is sicca Assessment & Plan (09/29/2023 2:51 PM ELECTRICAL MAINTENANCE MECHANIC): Likely secondary sjogren's. Uses biotene products and eye drops already. Using cevimeline qhs only with good relief Assessment & Plan (06/23/2023 8:59 AM CDT): Continue per [facility] Assessment & Plan (03/31/2023 5:29 PM CDT): Likely secondary sjogren's. Uses biotene products and eye drops already. Using cevimeline qhs only with good relief Assessment & Plan (12/30/2022 12:03 PM ELECTRICAL MAINTENANCE MECHANIC): Likely secondary sjogren's. Uses biotene products and eye drops already. Using cevimeline qhs only with good relief Assessment & Plan (09/30/2022 3:37 PM ELECTRICAL MAINTENANCE MECHANIC): Likely secondary sjogren's. Uses biotene products and eye drops already. Using cevimeline qhs only with good relief Assessment & Plan (07/01/2022 1:50 PM CDT): Likely secondary sjogren's. Uses biotene products and eye drops already. Will try cevimeline Neck pain 01/18/2021 Overview (02/10/2022): Assessment & Plan (02/10/2022 10:56 PM CDT): No injury. Check xray due to history osteopenia. Offered PT. She declines. Encouraged stretching/activity and topical (votaren gel/lidocaine patches) History of 2019 novel coronavirus disease (COVID -19) 01/05/2021 Overview (11/25/2023): Positive 12/19/2020 and [id number] Assessment & Plan (01/05/2021 11:13 AM ELECTRICAL MAINTENANCE MECHANIC): No longer in quarantine. Monitor residual sxs. Treat for sinusitis. Prediabetes 01/03/2020 Assessment & Plan (02/20/2025 7:25 PM CDT): Pre-diabetes/hyperglycemia is a precursor to Dm. Stressed importance of working on diet (decrease your simple sugars and one carbohydrate with each meal) and increase you exercise to achieve weight loss and this will help prevent you from progressing to diabetes. Assessment & Plan (06/06/2024 5:50 PM CDT): Pre-diabetes/hyperglycemia is a precursor to Dm. Stressed importance of working on diet (decrease your simple sugars and one carbohydrate with each meal) and increase you exercise to achieve weight loss and this will help prevent you from progressing to diabetes. Assessment & Plan (11/15/2023 9:53 PM ELECTRICAL MAINTENANCE MECHANIC): Pre-diabetes/hyperglycemia is a precursor to Dm. Stressed importance of working on diet (decrease your simple sugars and one carbohydrate with each meal) and increase you exercise to achieve weight loss and this will help prevent you from progressing to diabetes. Assessment & Plan (06/23/2023 9:01 AM CDT): Pre-diabetes/hyperglycemia is a precursor to Dm. Stressed importance of working on diet (decrease your simple sugars and one carbohydrate with each meal) and increase you exercise to achieve weight loss and this will help prevent you from progressing to diabetes. Assessment & Plan (09/15/2022 5:24 PM CDT): Pre-diabetes/hyperglycemia is a precursor to Dm. Stressed importance of working on diet (decrease your simple sugars and one carbohydrate with each meal) and increase you exercise to achieve weight loss and this will help prevent you from progressing to diabetes. Assessment & Plan (02/14/2022 9:00 AM CDT): Pre-diabetes/hyperglycemia is a precursor to Dm. Stressed importance of working on diet (decrease your simple sugars and one carbohydrate with each meal) and increase you exercise to achieve weight loss and this will help prevent you from progressing to diabetes. Assessment & Plan (08/15/2021 11:30 PM CDT): Pre-diabetes/hyperglycemia is a precursor to Dm. Stressed importance of working on diet (decrease your simple sugars and one carbohydrate with each meal) and increase you exercise to achieve weight loss and this will help prevent you from progressing to diabetes. Assessment & Plan (01/17/2021 9:06 PM ELECTRICAL MAINTENANCE MECHANIC): Pre-diabetes/hyperglycemia is a precursor to Dm. Stressed importance of working on diet (decrease your simple sugars and one carbohydrate with each meal) and increase you exercise to achieve weight loss and this will help prevent you from progressing to diabetes. Assessment & Plan (07/15/2020 8:14 PM CDT): Pre-diabetes/hyperglycemia is a precursor to Dm. Stressed importance of working on diet (decrease your simple sugars and one carbohydrate with each meal) and increase you exercise to achieve weight loss and this will help prevent you from progressing to diabetes. Assessment & Plan (01/03/2020 1:23 PM ELECTRICAL MAINTENANCE MECHANIC): Pre-diabetes/hyperglycemia is a precursor to Dm. Stressed importance of working on diet (decrease your simple sugars and one carbohydrate with each meal) and increase you exercise to achieve weight loss and this will help prevent you from progressing to diabetes. Stage 3a chronic kidney disease 07/29/2019 Assessment & Plan (02/20/2025 7:24 PM CDT): Avoid nephrotoxic drugs including NSAIDs. Monitor labs. Assessment & Plan (10/23/2024 10:16 PM ELECTRICAL MAINTENANCE MECHANIC): Avoid nephrotoxic drugs including NSAIDs. Monitor labs. Will monitor and may consider an SG LT for renal protection if continues to say at the same rate Assessment & Plan (06/06/2024 5:49 PM CDT): Avoid nephrotoxic drugs including NSAIDs. Monitor labs. Assessment & Plan (11/25/2023 10:36 AM ELECTRICAL MAINTENANCE MECHANIC): Avoid nephrotoxic drugs including NSAIDs. Monitor labs. [facility] continues to monitor closely. Will defer to them for management of her rheumatologic medications. If GFR continues to remain on the low end could consider adding an SG LT for additional protection. Assessment & Plan (06/23/2023 9:00 AM CDT): Avoid nephrotoxic drugs including NSAIDs. Monitor labs. GFR has been stable. Continue to monitor closely Assessment & Plan (08/22/2022 7:41 AM CDT): Avoid nephrotoxic drugs including NSAIDs. Monitor labs. Assessment & Plan (02/14/2022 9:00 AM CDT): Monitoring closely. Appears to have rebound after changing the dose of the Xeljanz. Encouraged patient is to avoid all NSAIDs. If she she has breakthrough pain encouraged Tylenol. Assessment & Plan (01/17/2021 9:05 PM ELECTRICAL MAINTENANCE MECHANIC): Avoid nephrotoxic drugs including NSAIDs. Monitor labs. Assessment & Plan (07/15/2020 8:12 PM CDT): Avoid nephrotoxic drugs including NSAIDs. Monitor labs. Assessment & Plan (01/03/2020 1:21 PM ELECTRICAL MAINTENANCE MECHANIC): Avoid nephrotoxic drugs including NSAIDs. Monitor labs. Assessment & Plan (08/30/2019 7:57 PM CDT): /This is a significant, separately identifiable problem that was evaluated and managed on the same day as the wellness exam Avoid nephrotoxic drugs including NSAIDs. Monitor labs. Vitamin D deficiency 07/29/2019 Assessment & Plan (02/20/2025 7:24 PM CDT): Supplement Assessment & Plan (10/23/2024 10:16 PM ELECTRICAL MAINTENANCE MECHANIC): Supplement Assessment & Plan (06/06/2024 5:50 PM CDT): Supplement Assessment & Plan (11/25/2023 10:37 AM ELECTRICAL MAINTENANCE MECHANIC): Supplement Assessment & Plan (11/15/2023 9:53 PM ELECTRICAL MAINTENANCE MECHANIC): Supplement Assessment & Plan (06/23/2023 9:00 AM CDT): Continue vitamin-D supplementation Assessment & Plan (08/22/2022 7:41 AM CDT): Supplement Assessment & Plan (02/14/2022 9:00 AM CDT): Supplement Assessment & Plan (08/15/2021 11:30 PM CDT): supplement Assessment & Plan (01/17/2021 9:05 PM ELECTRICAL MAINTENANCE MECHANIC): supplement Assessment & Plan (07/15/2020 8:12 PM CDT): supplement Assessment & Plan (08/30/2019 9:41 AM CDT): supplement Grief at loss of child 07/29/2019 Overview (07/29/2019): 2016 Son (drugs/suicide) Assessment & Plan (08/30/2019 9:43 AM CDT): Improved with cymbalta. See depression Assessment & Plan (07/29/2019 1:09 PM CDT): See Depression Age-related osteoporosis wit hout current pathological fracture 04/01/2019 Overview (06/21/2024): BMD 04/04: L femoral neck -2.4. R femoral neck -2.3. Spine 0.0. FRAX 31%, 16%. Started on bisphosphonate (actonel) BMD 11/15/21: L femoral -2.2, L hip total -1.2, R femoral neck -2.1, R hip total -0.9, spine 0.5. A slight improvement in bone density compared to 2 yrs ago. Continue on actonel. Dexa 04/15/24: left femoral neck T score -2.1; right femoral neck T score-2.0. Frax 28/10%. Stable from prior dexa. As she has been on actonel for 5 years, would recommend a drug holiday by stopping the actonel. Would recommend weight bearing exercises and calcium and vit D. Assessment & Plan (07/04/2025 2:41 PM CDT): High FRAX from bmd in 04/04. Started on actonel 150mg monthly at that time. BMD 11/26/21: L femoral neck -2.2, osteopenia. R femoral neck -2.1, osteopenia. spine 0.5, normal. A slight improvement in bone density compared to 2 yrs ago. Continue on actonel. She had a fall from a stepladder in her garage on 11/17/22 and sustained a proximal L humeral fracture. Seeing ortho and managed without surgery. Dexa 04/15/24: left femoral neck T score -2.1; right femoral neck T score-2.0. Frax 28/10%. Stable from prior dexa. As she has been on actonel for 5 years, would recommend a drug holiday by stopping the actonel. Would recommend weight bearing exercises and calcium and vit D. Repeat BMD in 1-2 yrs Assessment & Plan (02/20/2025 7:24 PM CDT): Managed by [facility]. Currently on Actonel drug holiday as T-scores were stable. Continue calcium vitamin-D and exercise Assessment & Plan (12/20/2024 1:23 PM ELECTRICAL MAINTENANCE MECHANIC): High FRAX from bmd in 04/04. Started on actonel 150mg monthly at that time. BMD 11/26/21: L femoral neck -2.2, osteopenia. R femoral neck -2.1, osteopenia. spine 0.5, normal. A slight improvement in bone density compared to 2 yrs ago. Continue on actonel. She had a fall from a stepladder in her garage on 11/17/22 and sustained a proximal L humeral fracture. Seeing ortho and managed without surgery. Dexa 04/15/24: left femoral neck T score -2.1; right femoral neck T score-2.0. Frax 28/10%. Stable from prior dexa. As she has been on actonel for 5 years, would recommend a drug holiday by stopping the actonel. Would recommend weight bearing exercises and calcium and vit D. Repeat BMD in 1-2 yrs Assessment & Plan (09/20/2024 5:06 PM ELECTRICAL MAINTENANCE MECHANIC): High FRAX from bmd in 04/04. Started on actonel 150mg monthly at that time. BMD 11/26/21: L femoral neck -2.2, osteopenia. R femoral neck -2.1, osteopenia. spine 0.5, normal. A slight improvement in bone density compared to 2 yrs ago. Continue on actonel. She had a fall from a stepladder in her garage on 11/17/22 and sustained a proximal L humeral fracture. Seeing ortho and managed without surgery. Dexa 04/15/24: left femoral neck T score -2.1; right femoral neck T score-2.0. Frax 28/10%. Stable from prior dexa. As she has been on actonel for 5 years, would recommend a drug holiday by stopping the actonel. Would recommend weight bearing exercises and calcium and vit D. Repeat BMD in 1-2 yrs Assessment & Plan (06/21/2024 5:48 PM CDT): High FRAX from bmd in 04/04. Started on actonel 150mg monthly BMD 11/26/21: L femoral neck -2.2, osteopenia. R femoral neck -2.1, osteopenia. spine 0.5, normal. A slight improvement in bone density compared to 2 yrs ago. Continue on actonel. She had a fall from a stepladder in her garage on 11/17/22 and sustained a proximal L humeral fracture. Seeing ortho and managed without surgery. Dexa 04/15/24: left femoral neck T score -2.1; right femoral neck T score-2.0. Frax 28/10%. Stable from prior dexa. As she has been on actonel for 5 years, would recommend a drug holiday by stopping the actonel. Would recommend weight bearing exercises and calcium and vit D. Assessment & Plan (06/06/2024 5:49 PM CDT): On drug holiday per Dr. Clayton dong right now is T-scores were stable. Continue calcium vitamin-D and exercise Assessment & Plan (03/29/2024 5:09 PM CDT): High FRAX from bmd in 04/04. on actonel 150mg monthly since then (with a few months hiatus for possible dental work, now back on med) BMD 11/26/21: L femoral neck -2.2, osteopenia. R femoral neck -2.1, osteopenia. spine 0.5, normal. A slight improvement in bone density compared to 2 yrs ago. Continue on actonel. She had a fall from a stepladder in her garage on 11/17/22 and sustained a proximal L humeral fracture. Seeing ortho and managed without surgery. Recheck bmd in 12/10 (she is scheduled for later this month - March). If stable may take drug holiday. Assessment & Plan (11/25/2023 10:37 AM ELECTRICAL MAINTENANCE MECHANIC): Continue Actonel, vitamin-D exercise and calcium. DEXA will be due again this year. Last ordered by Rheumatology Assessment & Plan (11/15/2023 9:53 PM ELECTRICAL MAINTENANCE MECHANIC): Continue Actonel and vitamin-D supplementation Assessment & Plan (09/29/2023 2:51 PM ELECTRICAL MAINTENANCE MECHANIC): High FRAX from bmd in 04/04. on actonel 150mg monthly since then (with a few months hiatus for possible dental work, now back on med) BMD 11/26/21: L femoral neck -2.2, osteopenia. R femoral neck -2.1, osteopenia. spine 0.5, normal. A slight improvement in bone density compared to 2 yrs ago. Continue on actonel. She had a fall from a stepladder in her garage on 11/17/22 and sustained a proximal L humeral fracture. Seeing ortho and managed without surgery. Recheck bmd in 12/10. If stable may take drug holiday. Assessment & Plan (06/23/2023 9:00 AM CDT): Continue per [facility]. She is on Actonel calcium and vitamin-D Assessment & Plan (03/31/2023 5:29 PM CDT): High FRAX from bmd in 04/04. on actonel 150mg monthly since then (with a few months hiatus for possible dental work, now back on med) BMD 11/26/21: L femoral neck -2.2, osteopenia. R femoral neck -2.1, osteopenia. spine 0.5, normal. A slight improvement in bone density compared to 2 yrs ago. Continue on actonel. Recheck bmd in 12/10 She had a fall from a stepladder in her garage on 11/17/22 and sustained a proximal L humeral fracture. Seeing ortho and managed without surgery. Assessment & Plan (12/30/2022 5:12 PM ELECTRICAL MAINTENANCE MECHANIC): High FRAX from bmd in 04/04. on actonel 150mg monthly since then (with a few months hiatus for possible dental work, now back on med) BMD 11/26/21: L femoral neck -2.2, osteopenia. R femoral neck -2.1, osteopenia. spine 0.5, normal. A slight improvement in bone density compared to 2 yrs ago. Continue on actonel. Recheck bmd in 12/10 She had a fall from a stepladder in her garage on 11/17/22 and sustained a proximal L humeral fracture. Seeing ortho and managed without surgery. Assessment & Plan (12/22/2022 8:51 PM ELECTRICAL MAINTENANCE MECHANIC): Managed by Rheumatology. Currently on Actonel. Continue calcium vitamin-D and exercise. Assessment & Plan (09/30/2022 1:31 PM ELECTRICAL MAINTENANCE MECHANIC): High FRAX from bmd in 04/04. on actonel 150mg monthly since then (with a few months hiatus for possible dental work, now back on med) BMD 11/26/21: L femoral neck -2.2, osteopenia. R femoral neck -2.1, osteopenia. spine 0.5, normal. A slight improvement in bone density compared to 2 yrs ago. Continue on actonel. Recheck bmd in 12/10 Assessment & Plan (08/22/2022 7:41 AM CDT): Continue Actonel calcium vitamin-D and exercise. Rheumatology last DEXA in 2021 was stable Assessment & Plan (07/01/2022 1:32 PM CDT): High FRAX from bmd in 04/04. on actonel 150mg monthly since then (with a few months hiatus for possible dental work, now back on med) BMD 11/26/21: L femoral neck -2.2, osteopenia. R femoral neck -2.1, osteopenia. spine 0.5, normal. A slight improvement in bone density compared to 2 yrs ago. Continue on actonel. Recheck bmd in 12/10 Assessment & Plan (04/01/2022 1:08 PM CDT): High FRAX from bmd in 04/04. on actonel 150mg monthly since then (with a few months hiatus for possible dental work, now back on med) BMD 11/26/21: L femoral neck -2.2, osteopenia. R femoral neck -2.1, osteopenia. spine 0.5, normal. A slight improvement in bone density compared to 2 yrs ago. Continue on actonel. Recheck bmd in 12/10 Assessment & Plan (02/14/2022 8:59 AM CDT): DEXA just done by rheumatology. Continue Actonel calcium and vitamin-D Assessment & Plan (12/31/2021 2:43 PM ELECTRICAL MAINTENANCE MECHANIC): High FRAX from bmd in 04/04. on actonel 150mg monthly since then (with a few months hiatus for possible dental work, now back on med) BMD 11/26/21: L femoral neck -2.2, osteopenia. R femoral neck -2.1, osteopenia. spine 0.5, normal. A slight improvement in bone density compared to 2 yrs ago. Continue on actonel. Recheck bmd in 12/10 Assessment & Plan (10/01/2021 4:34 PM ELECTRICAL MAINTENANCE MECHANIC): High FRAX from bmd in 04/04. on actonel 150mg monthly since then (with a few months hiatus for possible dental work, now back on med) BMD scheduled for October. Assessment & Plan (08/15/2021 11:32 PM CDT): Continue actonel, calcium, vitamin D and exercise. Assessment & Plan (07/06/2021 2:06 PM CDT): High FRAX from bmd in 04/04. on actonel 150mg monthly since then. repeat BMD, order given again today. She is currently holding actonel for a tooth extraction Assessment & Plan (04/05/2021 4:22 PM CDT): High FRAX from bmd in 04/04. on actonel 150mg monthly since then. Will repeat BMD in 04/06, order placed today Assessment & Plan (01/17/2021 9:06 PM ELECTRICAL MAINTENANCE MECHANIC): DXA 2018 On Actonel Calcium and vitamin D Assessment & Plan (01/09/2021 1:15 PM ELECTRICAL MAINTENANCE MECHANIC): High FRAX from bmd in 04/04. on actonel 150mg monthly since then. Will repeat BMD in 04/06 Assessment & Plan (10/08/2020 3:49 PM ELECTRICAL MAINTENANCE MECHANIC): High FRAX from bmd in 04/04. on actonel 150mg monthly since then. Assessment & Plan (07/15/2020 8:13 PM CDT): Continue Actonel Encourage calcium, vitamin D and weight bearing exercise to maintain the good bone strength. Assessment & Plan (07/10/2020 9:55 AM CDT): High FRAX from bmd in 04/04. on actonel 150mg monthly since then. Assessment & Plan (04/11/2020 10:57 AM CDT): High FRAX from bmd in 04/04. Started on actonel 150mg monthly. Repeat labs and vit D today Assessment & Plan (01/11/2020 10:09 AM ELECTRICAL MAINTENANCE MECHANIC): High FRAX from bmd in 04/04. Started on actonel 150mg monthly Assessment & Plan (10/19/2019 8:49 AM ELECTRICAL MAINTENANCE MECHANIC): High FRAX from bmd in 04/04. Started on actonel 150mg monthly Assessment & Plan (08/17/2019 10:18 AM CDT): High FRAX from bmd in 04/04. Started on actonel 150mg monthly, especially while on steroids. Assessment & Plan (05/11/2019 12:22 PM CDT): High FRAX from bmd in 04/04. Started on actonel 150mg monthly, especially while on steroids. Anxiety 01/20/2019 Assessment & Plan (11/25/2023 10:37 AM ELECTRICAL MAINTENANCE MECHANIC): Stable with Cymbalta and Wellbutrin Assessment & Plan (06/23/2023 9:00 AM CDT): Stable with Cymbalta 60 and Wellbutrin XL 150 Assessment & Plan (09/30/2022 3:36 PM ELECTRICAL MAINTENANCE MECHANIC): Worse lately. pcp added another anti-depressant (wellbutrin) to her previous regimen of cymbalta. I also encouraged her to consider seeing a counselor Assessment & Plan (08/22/2022 7:41 AM CDT): Stable with Cymbalta Assessment & Plan (02/14/2022 8:59 AM CDT): Stable with the Cymbalta. Refills sent to pharmacy Assessment & Plan (01/17/2021 9:06 PM ELECTRICAL MAINTENANCE MECHANIC): Stable with cymbalta Assessment & Plan (07/15/2020 8:14 PM CDT): Continue cymbalta Assessment & Plan (08/30/2019 9:42 AM CDT): Much improved with the Cymbalta. Will continue with same dose and monitor closely. If sxs increase will reassess. Sciatica of right side 10/02/2018 Assessment & Plan (01/01/2019 9:28 AM ELECTRICAL MAINTENANCE MECHANIC): Improved with shot from pain mgmt Assessment & Plan (10/02/2018 11:52 AM ELECTRICAL MAINTENANCE MECHANIC): Improved with shot from pain mgmt Mixed hyperlipidemia 09/09/2018 Assessment & Plan (02/20/2025 7:25 PM CDT): Encouraged patient to follow low fat/low chol diet like the Mediterranean diet. Increase good fats in the diet. Increase exercise. Monitor labs as needed. Continue Crestor 20 Assessment & Plan (07/17/2024 9:28 PM CDT): Encouraged patient to follow low fat/low chol diet like the Mediterranean diet. Increase good fats in the diet. Increase exercise. Monitor labs as needed. Continue Crestct 20 Assessment & Plan (06/06/2024 5:50 PM CDT): Encouraged patient to follow low fat/low chol diet like the Mediterranean diet. Increase good fats in the diet. Increase exercise. Monitor labs as needed. Continue Crestor 20 Assessment & Plan (11/25/2023 10:37 AM ELECTRICAL MAINTENANCE MECHANIC): Encouraged patient to follow low fat/low chol diet like the Mediterranean diet. Increase good fats in the diet. Increase exercise. Monitor labs as needed. Continue Crestct 20 Assessment & Plan (11/15/2023 9:53 PM ELECTRICAL MAINTENANCE MECHANIC): Encouraged patient to follow low fat/low chol diet like the Mediterranean diet. Increase good fats in the diet. Increase exercise. Monitor labs as needed. Continue Crestct 20 Assessment & Plan (06/23/2023 9:00 AM CDT): Encouraged patient to follow low fat/low chol diet like the Mediterranean diet. Increase good fats in the diet. Increase exercise. Monitor labs as needed. Assessment & Plan (12/22/2022 8:50 PM ELECTRICAL MAINTENANCE MECHANIC): Encouraged patient to follow low fat/low chol diet like the Mediterranean diet. Increase good fats in the diet. Increase exercise. Monitor labs as needed. Continue Crestor 20 Assessment & Plan (08/22/2022 7:41 AM CDT): Encouraged patient to follow low fat/low chol diet like the Mediterranean diet. Increase good fats in the diet. Increase exercise. Monitor labs as needed. Continue Crestor Assessment & Plan (02/14/2022 8:58 AM CDT): Encouraged patient to follow low fat/low chol diet like the Mediterranean diet. Increase good fats in the diet. Increase exercise. Monitor labs as needed. Continue Crestor Assessment & Plan (08/15/2021 11:30 PM CDT): Encouraged patient to follow fat/low chol diet like the Mediterranean diet. Increase good fats in the diet. Increase exercise. Monitor labs as needed. Continue crestor Assessment & Plan (01/17/2021 9:06 PM ELECTRICAL MAINTENANCE MECHANIC): Encouraged patient to follow fat/low chol diet like the Mediterranean diet. Increase good fats in the diet. Increase exercise. Monitor labs as needed. Continue crestor Assessment & Plan (07/15/2020 8:14 PM CDT): Encouraged patient to continue low fat/low chol diet. Continue exercise. Increase good fats in the diet. Monitor labs as needed. Continue statin Assessment & Plan (01/03/2020 1:21 PM ELECTRICAL MAINTENANCE MECHANIC): Encouraged patient to continue low fat/low chol diet. Continue exercise. Increase good fats in the diet. Monitor labs as needed. Assessment & Plan (08/30/2019 9:42 AM CDT): Encouraged patient to continue low fat/low chol diet. Continue exercise. Increase good fats in the diet. Monitor labs as needed. Continue crestor Assessment & Plan (01/01/2019 11:38 AM ELECTRICAL MAINTENANCE MECHANIC): Add lipid panel to labs for pcp. Is on crestor. Gastroesophageal reflux disease 09/09/2018 Assessment & Plan (02/20/2025 7:24 PM CDT): Continue PPI p.r.n. Assessment & Plan (06/06/2024 5:49 PM CDT): Continue omeprazole 40 mg daily as needed Assessment & Plan (11/25/2023 10:37 AM ELECTRICAL MAINTENANCE MECHANIC): Continue PPI p.r.n. Assessment & Plan (06/23/2023 9:00 AM CDT): Continue PPI p.r.n. Assessment & Plan (12/22/2022 8:51 PM ELECTRICAL MAINTENANCE MECHANIC): Continue PPI p.r.n. Assessment & Plan (08/22/2022 7:41 AM CDT): Continue PPI Assessment & Plan (02/14/2022 8:59 AM CDT): Continue PPI Assessment & Plan (08/15/2021 11:31 PM CDT): Continue omeprazole Assessment & Plan (01/17/2021 9:05 PM ELECTRICAL MAINTENANCE MECHANIC): Continue PPI Assessment & Plan (07/15/2020 8:12 PM CDT): Continue PPI Assessment & Plan (01/03/2020 1:21 PM ELECTRICAL MAINTENANCE MECHANIC): Stable with PPI Assessment & Plan (08/30/2019 9:41 AM CDT): Stable with PPI Encounter for long-term (current) use of medicat ions 06/27/2017 Overview (03/15/2019): cxr 8/18 - mild hyperinflation otherwise normal Neg quantiferon 03/05 Assessment & Plan (07/04/2025 3:55 PM CDT): Continue to monitor routine labs while on current medication regimen. Obtain labs today. Will need to repeat labs in approximately 3 months. cxr 8/18 - mild hyperinflation otherwise normal. Repeated cxr 05/05- mild hyperinflation Monitor routine labs Neg hepatitis panel 2014 Quantiferon gold negative 03/05 utd flu, [id number], [id number], tdap, zostavax. Had first dose of shingrix in 10/06 Had COVID vaccine. Had new booster Assessment & Plan (12/20/2024 1:23 PM ELECTRICAL MAINTENANCE MECHANIC): cxr 8/18 - mild hyperinflation otherwise normal. Repeated cxr 05/05- mild hyperinflation Monitor routine labs Neg hepatitis panel 2014 Quantiferon gold negative 03/05 utd flu, [id number], , tdap, zostavax. Had first dose of shingrix in 10/06 Had COVID vaccine. Had new booster Assessment & Plan (09/20/2024 1:01 PM ELECTRICAL MAINTENANCE MECHANIC): cxr 8/18 - mild hyperinflation otherwise normal. Repeated cxr 6- mild hyperinflation Monitor routine labs Neg hepatitis panel 2014 Quantiferon gold negative 4/ utd flu, [id number], , tdap, zostavax. Had first dose of shingrix in 10/06 Had COVID vaccine. Had new booster Assessment & Plan (06/21/2024 5:48 PM CDT): cxr 8/18 - mild hyperinflation otherwise normal. Repeated cxr 6- mild hyperinflation Monitor routine labs Neg hepatitis panel 2014 Quantiferon gold negative 4/19 utd flu, [id number], [id number], tdap, zostavax. Had first dose of shingrix in 10/06 Had COVID vaccine. Had new booster Assessment & Plan (03/29/2024 5:09 PM CDT): cxr 8/18 - mild hyperinflation otherwise normal. Repeated cxr 6- mild hyperinflation Monitor routine labs Neg hepatitis panel 2014 Quantiferon gold negative 4/19 utd flu, [id number], [id number], tdap, zostavax. Had first dose of shingrix in 10/06 Had COVID vaccine. Had new booster Assessment & Plan (09/29/2023 2:50 PM ELECTRICAL MAINTENANCE MECHANIC): cxr 8/18 - mild hyperinflation otherwise normal. Repeated cxr 6- mild hyperinflation Monitor routine labs Neg hepatitis panel 2014 Quantiferon gold negative 4/19 utd flu, [id number], [id number], tdap, zostavax. Had first dose of shingrix in 10/06 Had COVID vaccine. Had new booster Assessment & Plan (03/31/2023 5:29 PM CDT): cxr 8/18 - mild hyperinflation otherwise normal. Repeated cxr 05/05- mild hyperinflation Monitor routine labs Neg hepatitis panel 2014 Quantiferon gold negative 4/ utd flu, [id number], [id number], tdap, zostavax. Had first dose of shingrix in 10/06 Had COVID vaccine. Had new booster Assessment & Plan (12/30/2022 12:03 PM ELECTRICAL MAINTENANCE MECHANIC): cxr 8/18 - mild hyperinflation otherwise normal. Repeated cxr 05/05- mild hyperinflation Monitor routine labs Neg hepatitis panel 2014 Quantiferon gold negative 4/ utd flu, [id number], [id number], tdap, zostavax. Had first dose of shingrix in 10/06 Had COVID vaccine. Had new booster Assessment & Plan (09/30/2022 3:35 PM ELECTRICAL MAINTENANCE MECHANIC): cxr 8/18 - mild hyperinflation otherwise normal. Repeated cxr 05/05- mild hyperinflation Monitor routine labs Neg hepatitis panel 2014 Quantiferon gold negative 4/ utd flu, [id number], [id number], tdap, zostavax. Had first dose of shingrix in 10/06 Had COVID vaccine. Had new booster Assessment & Plan (07/01/2022 1:32 PM CDT): cxr 8/18 - mild hyperinflation otherwise normal. Repeated cxr 05/05- mild hyperinflation Monitor routine labs Neg hepatitis panel 2014 Quantiferon gold negative 4/ utd flu, [id number], [id number], tdap, zostavax. Had first dose of shingrix in 10/06 Had COVID vaccine. Had 3rd dose in 12/08 Assessment & Plan (04/01/2022 1:09 PM CDT): cxr 8/18 - mild hyperinflation otherwise normal. Repeated cxr 05/05- mild hyperinflation Monitor routine labs Neg hepatitis panel 2014 Quantiferon gold negative 4/ utd flu, , [id number], tdap, zostavax. Had first dose of shingrix in 10/06 Had COVID vaccine. Had 3rd dose in 12/08 Assessment & Plan (03/04/2022 1:51 PM CDT): cxr 8/18 - mild hyperinflation otherwise normal. Repeated cxr 05/05- mild hyperinflation Monitor routine labs Neg hepatitis panel 2014 Quantiferon gold negative 4 utd flu, [id number], [id number], tdap, zostavax. Had first dose of shingrix in 10/06 Had COVID vaccine. Had 3rd dose in 12/08 Assessment & Plan (02/01/2022 1:00 PM CDT): cxr 8/18 - mild hyperinflation otherwise normal. Repeated cxr 05/05- mild hyperinflation Monitor routine labs Neg hepatitis panel 2014 Quantiferon gold negative 4 utd flu, [id number], , tdap, zostavax. Had first dose of shingrix in 10/06 Had COVID vaccine. Had 3rd dose in 12/08 Assessment & Plan (12/31/2021 2:44 PM ELECTRICAL MAINTENANCE MECHANIC): cxr 8/18 - mild hyperinflation otherwise normal. Repeated cxr 05/05- mild hyperinflation Monitor routine labs Neg hepatitis panel 2014 Quantiferon gold negative 4 utd flu, , [id number], tdap, zostavax. Had first dose of shingrix in 10/06 Had COVID vaccine. Had 3rd dose in 12/08 Assessment & Plan (10/01/2021 11:15 AM ELECTRICAL MAINTENANCE MECHANIC): cxr 8/18 - mild hyperinflation otherwise normal. Repeated cxr 05/05- mild hyperinflation Monitor routine labs Neg hepatitis panel 2014 Quantiferon gold negative 4 utd flu, [id number], [id number], tdap, zostavax. Had first dose of shingrix in 10/06 Had COVID vaccine. Eligible for booster Assessment & Plan (07/06/2021 2:06 PM CDT): cxr 8/18 - mild hyperinflation otherwise normal. Repeated cxr 05/05- mild hyperinflation Monitor routine labs Neg hepatitis panel 2014 Quantiferon gold negative 4/ utd flu, [id number], , tdap, zostavax. Had first dose of shingrix in 10/06 Had COVID vaccine. Eligible for booster Assessment & Plan (04/05/2021 4:22 PM CDT): cxr 8/18 - mild hyperinflation otherwise normal. Repeated cxr 05/05- mild hyperinflation Monitor routine labs Neg hepatitis panel 2014 Quantiferon gold negative 03/05 utd flu, [id number], [id number], tdap, zostavax. Had first dose of shingrix in 10/06 Had COVID vaccine Assessment & Plan (01/09/2021 1:14 PM ELECTRICAL MAINTENANCE MECHANIC): cxr 8/18 - mild hyperinflation otherwise normal. Repeated cxr 05/05- mild hyperinflation Monitor routine labs Neg hepatitis panel 2014 Quantiferon gold negative 03/05 utd flu, [id number], [id number], tdap, zostavax. Had first dose of shingrix in 10/06 Assessment & Plan (10/09/2020 1:02 PM ELECTRICAL MAINTENANCE MECHANIC): cxr 8/18 - mild hyperinflation otherwise normal. Repeated cxr 05/05- mild hyperinflation Monitor routine labs Neg hepatitis panel 2014 Quantiferon gold negative 03/05 utd flu, , [id number], tdap, zostavax. Had first dose of shingrix in 10/06 Assessment & Plan (07/10/2020 9:55 AM CDT): cxr 8/18 - mild hyperinflation otherwise normal. Repeated cxr 6- mild hyperinflation Monitor routine labs Neg hepatitis panel 2014 Quantiferon gold negative 4/19 utd flu, [id number], [id number], tdap, zostavax. Recommend shingrix Assessment & Plan (04/11/2020 10:58 AM CDT): cxr 8/18 - mild hyperinflation otherwise normal. Repeated cxr 6/19- mild hyperinflation Monitor routine labs Neg hepatitis panel 2014 Quantiferon gold negative 03/05 utd flu, [id number], , tdap, zostavax. Recommend shingrix Assessment & Plan (01/11/2020 10:09 AM ELECTRICAL MAINTENANCE MECHANIC): cxr 8/18 - mild hyperinflation otherwise normal. Repeated cxr 6/19- mild hyperinflation Monitor routine labs Neg hepatitis panel 2014 Quantiferon gold negative 03/05 utd flu, [id number], [id number], tdap, zostavax. Recommend shingrix Assessment & Plan (10/19/2019 8:50 AM ELECTRICAL MAINTENANCE MECHANIC): cxr 8/18 - mild hyperinflation otherwise normal. Repeated cxr 6/- mild hyperinflation Monitor routine labs Neg hepatitis panel 2014 Quantiferon gold negative 03/05 utd flu, [id number], [id number], tdap, zostavax. Recommend shingrix Assessment & Plan (08/17/2019 10:18 AM CDT): cxr 8/18 - mild hyperinflation otherwise normal. Repeated cxr 6/19- mild hyperinflation Monitor routine labs Neg hepatitis panel 2014 Quantiferon gold negative 03/05 Assessment & Plan (06/22/2019 12:08 PM CDT): cxr 8/18 - mild hyperinflation otherwise normal. Repeated cxr 6/19- mild hyperinflation Monitor routine labs Neg hepatitis panel 2014 Quantiferon gold negative 03/05 Assessment & Plan (05/11/2019 12:22 PM CDT): cxr 8/18 - mild hyperinflation otherwise normal. Will repeat due to recent illness. Monitor routine labs Neg hepatitis panel 2014 Quantiferon gold negative 03/05 Assessment & Plan (03/26/2019 3:40 PM CDT): cxr 8/18 - mild hyperinflation otherwise normal Monitor routine labs Neg hepatitis panel 2014 Quantiferon gold negative 03/05 Assessment & Plan (03/12/2019 10:37 PM CDT): cxr 8/18 - mild hyperinflation otherwise normal Monitor routine labs Neg hepatitis panel 2014 Check quantiferon today. Assessment & Plan (01/01/2019 11:38 AM ELECTRICAL MAINTENANCE MECHANIC): cxr 8/18 - mild hyperinflation otherwise normal Monitor routine labs Assessment & Plan (10/02/2018 11:51 AM ELECTRICAL MAINTENANCE MECHANIC): cxr 8/18 - mild hyperinflation otherwise normal Assessment & Plan (07/03/2018 9:48 AM CDT): cxr neg 8/17. Recheck today Assessment & Plan (01/01/2018 5:32 PM ELECTRICAL MAINTENANCE MECHANIC): cxr neg 8/17. Assessment & Plan (09/26/2017 9:24 AM ELECTRICAL MAINTENANCE MECHANIC): cxr neg 8/17. Assessment & Plan (06/27/2017 9:52 AM CDT): cxr neg 8/17. Rheumatoid arthritis of [facility] without rheumatoid factor 05/15/2017 Overview (06/21/2024): Images from the original note were not included. +RF xeljanz started in 11/04 - stopped in 01/10 due to abnormal creatinine and reduced dose didn't work as well. Off mtx due to doing well on xeljanz monotherapy; also had increased infections on both Off arava due to not repsonding. Off humira due to frequent infections. Inadequate response to enbrel. Stopped ssz due to GI upset. Started Rinvoq in 01/10 Add hcq in 04/09? R hand u/s 01/05: US right foot/ankle (04/07/24): No significant joint effusions, power doppler, or erosive changes seen on US examination. Careful attention to the 1st MTP joint reveals no erosive changes, effusion, power doppler, or urate icing. Calcaneal enthesophyte is seen at the distal achilles insertion site. A mildly enlarged plantar fascia is seen at 0.40 cm. An additional transverse view of the right knee does not reveal any evidence of a crystal induced arthropathy although this does not necessarily rule this out. Xrays 05/10: Results: L foot with healing fracture to little toe, osteoarthritis in the small joints of the toes, heel spur, and osteopenia. R foot with osteoarthritis in the toes and spurring at the back of the heel where Achilles tendon attaches (this was also noted on ultrasound). L hand looks normal. R hand has some bony abnormality at the 2nd DIP joint which could be an erosion related to arthritis vs a fracture Assessment & Plan (07/04/2025 5:15 PM CDT): cdai = 6, low Stopped Xeljanz in 01/10 due to continued abnormal creatinine (1.3 to 1.4) and we felt it would be best to change to Rinvoq which does not depend on renal clearance. She has been on Rinvoq since 01/10. She had more flares initially so we added start hcq 300mg daily in 04/09. She took this for about a month and felt fine and did not have any RA flares so she decided to stop taking it. Other prior tx hx: Mtx - stopped due to frequent sinus infections Leflunomide - not beneficial Ssz - GI upset Humira - frequent infections Enbrel - frequent infections Xeljanz - worked well at full dose but decreased dose due to mild CKD, eventually stopped due to this (in 01/10) Imaging results: Xrays 05/10: Results: L foot with healing fracture to little toe, osteoarthritis in the small joints of the toes, heel spur, and osteopenia. R foot with osteoarthritis in the toes and spurring at the back of the heel where Achilles tendon attaches (this was also noted on ultrasound). L hand looks normal. R hand has some bony abnormality at the 2nd DIP joint which could be an erosion related to arthritis vs a fracture US right foot/ankle (04/07/24): No significant joint effusions, power doppler, or erosive changes seen on US examination. Careful attention to the 1st MTP joint reveals no erosive changes, effusion, power doppler, or urate icing. Calcaneal enthesophyte is seen at the distal achilles insertion site. A mildly enlarged plantar fascia is seen at 0.40 cm. An additional transverse view of the right knee does not reveal any evidence of a crystal induced arthropathy although this does not necessarily rule this out. Since she is doing well clinically and does not have signs of active inflammation/progressive damage on imaging studies, will continue with Rinvoq monotherapy. Advised that 1 month of HCQ was probably not long enough to see benefit, so we might try this again in the future if getting worse. She previously voiced concerns over malignancy risk with Rinvoq, which she has read about online. Remote hx uterine cancer and also former smoker (quit 10+ years ago). Discussed that while Rinvoq does carry a safety warning about possible malignancies, the actual incidence of malignancies in patients on Rinvoq in clinical trials and long-term follow up is quite low (0.7%), which does not increase over time according to the most up to date information (7.5 yrs follow up). I would not necessarily avoid it in patients with a remote history of cancer. I do recommend doing age- appropriate cancer screenings. Due to possible increased risk of non-melanoma skin cancer with most of the immunosuppressive tx we use, I do recommend derm check-up to evaluate any suspicious lesion. If she does insist on stopping Rinvoq at some point, then we would have to retry oral DMARD(s) or look into coverage for other biologics such as Actemra/Kevzara, Orencia, or Rituxan. Mild tenderness and synovitis noted on exam, see CDAI. Reassured the patient that her RA appears stable and well managed, discussed how the pains reported appears to be more OA/DDD in nature. Recommend that she continue with current medication regimen. Obtain routine labs today. Patient again requested to follow up in 6 months, but should do labs q3 months. We recommend that she come in sooner if she is having additional concerns or worsening symptoms. Assessment & Plan (02/20/2025 7:23 PM CDT): Continue per [facility]. Currently on Rinvoq. Assessment & Plan (12/20/2024 1:49 PM ELECTRICAL MAINTENANCE MECHANIC): cdai = 0, low Stopped Xeljanz in 01/10 due to continued abnormal creatinine (1.3 to 1.4) and we felt it would be best to change to Rinvoq which does not depend on renal clearance. She has been on Rinvoq since 01/10. She had more flares initially so we added start hcq 300mg daily in 04/09. She took this for about a month and felt fine and did not have any RA flares so she decided to stop taking it. Has still been flare-free since last visit. Other prior tx hx: Mtx - stopped due to frequent sinus infections Leflunomide - not beneficial Ssz - GI upset Humira - frequent infections Enbrel - frequent infections Xeljanz - worked well at full dose but decreased dose due to mild CKD, eventually stopped due to this (in 01/10) Imaging results: Xrays 05/10: Results: L foot with healing fracture to little toe, osteoarthritis in the small joints of the toes, heel spur, and osteopenia. R foot with osteoarthritis in the toes and spurring at the back of the heel where Achilles tendon attaches (this was also noted on ultrasound). L hand looks normal. R hand has some bony abnormality at the 2nd DIP joint which could be an erosion related to arthritis vs a fracture US right foot/ankle (04/07/24): No significant joint effusions, power doppler, or erosive changes seen on US examination. Careful attention to the 1st MTP joint reveals no erosive changes, effusion, power doppler, or urate icing. Calcaneal enthesophyte is seen at the distal achilles insertion site. A mildly enlarged plantar fascia is seen at 0.40 cm. An additional transverse view of the right knee does not reveal any evidence of a crystal induced arthropathy although this does not necessarily rule this out. Since she is doing well clinically and does not have signs of active inflammation/progressive damage on imaging studies, will continue with Rinvoq monotherapy. Advised that 1 month of HCQ was probably not long enough to see benefit, so we might try this again in the future if getting worse. She previously voiced concerns over malignancy risk with Rinvoq, which she has read about online. Remote hx uterine cancer and also former smoker (quit 10+ years ago). Discussed that while Rinvoq does carry a safety warning about possible malignancies, the actual incidence of malignancies in patients on Rinvoq in clinical trials and long-term follow up is quite low (0.7%), which does not increase over time according to the most up to date information (7.5 yrs follow up). I would not necessarily avoid it in patients with a remote history of cancer. I do recommend doing age- appropriate cancer screenings. Due to possible increased risk of non-melanoma skin cancer with most of the immunosuppressive tx we use, I do recommend derm check-up to evaluate any suspicious lesion. If she does insist on stopping Rinvoq at some point, then we would have to retry oral DMARD(s) or look into coverage for other biologics such as Actemra/Kevzara, Orencia, or Rituxan. Labs soon, may be done with hematology labs. May follow up in 6 months due to travel burden, but should do labs q3 months. Assessment & Plan (10/23/2024 10:15 PM ELECTRICAL MAINTENANCE MECHANIC): Managed by [facility]. Assessment & Plan (09/20/2024 5:13 PM ELECTRICAL MAINTENANCE MECHANIC): cdai = 0, low Stopped Xeljanz in 01/10 due to continued abnormal creatinine (1.3 to 1.4) and we felt it would be best to change to Rinvoq which does not depend on renal clearance. She has been on Rinvoq since 01/10. She had more flares initially so we added start hcq 300mg daily in 04/09. She took this for about a month and felt fine and did not have any RA flares so she decided to stop taking it. Has been flare-free since last visit. Other prior tx hx: Mtx - stopped due to frequent sinus infections Leflunomide - not beneficial Ssz - GI upset Humira - frequent infections Enbrel - frequent infections Xeljanz - worked well at full dose but decreased dose due to mild CKD, eventually stopped due to this (in 01/10) Imaging results: Xrays 05/10: Results: L foot with healing fracture to little toe, osteoarthritis in the small joints of the toes, heel spur, and osteopenia. R foot with osteoarthritis in the toes and spurring at the back of the heel where Achilles tendon attaches (this was also noted on ultrasound). L hand looks normal. R hand has some bony abnormality at the 2nd DIP joint which could be an erosion related to arthritis vs a fracture US right foot/ankle (04/07/24): No significant joint effusions, power doppler, or erosive changes seen on US examination. Careful attention to the 1st MTP joint reveals no erosive changes, effusion, power doppler, or urate icing. Calcaneal enthesophyte is seen at the distal achilles insertion site. A mildly enlarged plantar fascia is seen at 0.40 cm. An additional transverse view of the right knee does not reveal any evidence of a crystal induced arthropathy although this does not necessarily rule this out. Since she is doing well clinically and does not have signs of active inflammation/progressive damage on imaging studies, will continue with Rinvoq monotherapy. Advised that 1 month of HCQ was probably not long enough to see benefit, so we might try this again in the future if getting worse. Today she voiced concerns over malignancy risk with Rinvoq, which she has read about online. Remote hx uterine cancer and also former smoker (quit 10+ years ago). Discussed that while Rinvoq does carry a safety warning about possible malignancies, the actual incidence of malignancies in patients on Rinvoq in clinical trials and long-term follow up is quite low (0.7%), which does not increase over time according to the most up to date information (7.5 yrs follow up). I would not necessarily avoid it in patients with a remote history of cancer. I do recommend doing age- appropriate cancer screenings. Due to possible increased risk of non-melanoma skin cancer with most of the immunosuppressive tx we use, I do recommend derm check-up to evaluate any suspicious lesion. If she does insist on stopping Rinvoq at some point, then we would have to retry oral DMARD(s) or look into coverage for other biologics such as Actemra/Kevzara, Orencia, or Rituxan. Labs soon, may be done with PCP labs. F/u 3 months Assessment & Plan (06/21/2024 5:52 PM CDT): cdai = 0, low Stopped Xeljanz in 01/10 due to continued abnormal creatinine (1.3 to 1.4) and we felt it would be best to change to Rinvoq which does not depend on renal clearance. She has been on Rinvoq for almost 6 months. She had more flares initially so we added start hcq 300mg daily in 04/09. She took this for about a month and felt fine and did not have any RA flares so she decided to stop taking it. Has been flare-free since last visit. Reviewed imaging results: Xrays 05/10: Results: L foot with healing fracture to little toe, osteoarthritis in the small joints of the toes, heel spur, and osteopenia. R foot with osteoarthritis in the toes and spurring at the back of the heel where Achilles tendon attaches (this was also noted on ultrasound). L hand looks normal. R hand has some bony abnormality at the 2nd DIP joint which could be an erosion related to arthritis vs a fracture US right foot/ankle (04/07/24): No significant joint effusions, power doppler, or erosive changes seen on US examination. Careful attention to the 1st MTP joint reveals no erosive changes, effusion, power doppler, or urate icing. Calcaneal enthesophyte is seen at the distal achilles insertion site. A mildly enlarged plantar fascia is seen at 0.40 cm. An additional transverse view of the right knee does not reveal any evidence of a crystal induced arthropathy although this does not necessarily rule this out. Since she is doing well clinically and does not have signs of active inflammation/progressive damage on imaging studies, will continue with Rinvoq monotherapy. Advised that 1 month of HCQ was probably not long enough to see benefit, so we might try this again in the future if getting worse. Labs today. F/u 3 months Assessment & Plan (06/06/2024 5:54 PM CDT): Continue per [facility]. They manage her rheumatoid arthritis and with Plaquenil and renvoiq They continue to monitor kidney function as it is affected by the dosing Assessment & Plan (03/29/2024 5:09 PM CDT): cdai = 13, low/moderate Stopped Xeljanz after last visit due to continued abnormal creatinine (1.3 to 1.4) and we felt it would be best to change to Rinvoq which does not depend on renal clearance. She has been on Rinvoq for almost 3 months and does not feel it is working as well as Xeljanz did. Has had more frequent flares. Discussed that we could add back mtx to use in combination or could try adding hcq which is milder and non- immune suppressing. Pt willing to start hcq, will begin 300mg daily (weight-based dose, and renal impairment). Discussed need for baseline eye exam and then follow up eye exams. Med handout given. labs today. Seen with Dr. Henson. F/u 2 months Assessment & Plan (11/25/2023 10:36 AM ELECTRICAL MAINTENANCE MECHANIC): Continue per [facility]. Currently on Xeljaz and Evoxac Assessment & Plan (11/15/2023 9:53 PM ELECTRICAL MAINTENANCE MECHANIC): Continue with [facility] for management of rheumatoid arthritis and sicca Assessment & Plan (09/29/2023 2:50 PM ELECTRICAL MAINTENANCE MECHANIC): cdai = 4, low On xeljanz since 11/04. Lowered dose to 5mg daily in 10/07 based on slightly worsened creatinine. She had a flare in 02/05 which resolved with IM kenalog. However, she still noted having more frequent pain and stiffness when on lower dose of xeljanz. Her creatinine after that was improved so we went back to the 11mg daily dose and she is doing well. If creatinine worsens significantly again we could consider change to Rinvoq which does not have renal dose adjustment. labs today. She sees PCP again in 2-3 months and would like to get labs then, then see me again in 6 months (March). Advised her to ask PCP to add on cbc, cmp, esr, crp with her labs. I will place an order for these also. Assessment & Plan (06/23/2023 8:59 AM CDT): Continue per [facility] Assessment & Plan (03/31/2023 5:28 PM CDT): cdai = 0, low/remisison On xeljanz since 11/04. Lowered dose to 5mg daily in 10/07 based on slightly worsened creatinine. She had a flare in 02/05 which resolved with IM kenalog. However, she still noted having more frequent pain and stiffness when on lower dose of xeljanz. Her creatinine after that was improved so we went back to the 11mg daily dose and she is doing well. If creatinine worsens significantly again we could consider change to Rinvoq which does not have renal dose adjustment. labs today. Discussed OV and labs [id number]. She is seeing PCP in June and will have labs then, wondering if she can see us for visit and labs in 6 months instead, alternating with visits with her PCP. Will go ahead and do this. Advised her to ask PCP to add on cbc, cmp, esr, crp with her labs. let us know if lab abnormalities with PCP or worsening joint problems in the meantime. Assessment & Plan (12/30/2022 5:08 PM ELECTRICAL MAINTENANCE MECHANIC): cdai = 0, low/remisison On xeljanz since 11/04. Lowered dose to 5mg daily in 10/07 based on slightly worsened creatinine. She had a flare in 02/05 which resolved with IM kenalog. However, she still noted having more frequent pain and stiffness since being on lower dose of xeljanz. Her creatinine after that was improved so we went back to the 11mg daily dose and she is doing well. If creatinine worsens significantly again we could consider change to Rinvoq which does not have renal dose adjustment. labs today. F/u 3 months or sooner if needed Assessment & Plan (12/22/2022 8:52 PM ELECTRICAL MAINTENANCE MECHANIC): Continue management through Rheumatology. Assessment & Plan (09/30/2022 3:35 PM ELECTRICAL MAINTENANCE MECHANIC): cdai = 4, low On xeljanz since 11/04. Lowered dose to 5mg daily in 10/07 based on slightly worsened creatinine. She had a flare in 02/05 which resolved with IM kenalog. However, she still noted having more frequent pain and stiffness since being on lower dose of xeljanz. Her creatinine after that was improved so we went back to the 11mg daily dose and she is doing well. If creatinine worsens we could consider change to Rinvoq which does not have renal dose adjustment. labs today. F/u 3 months or sooner if needed Assessment & Plan (08/22/2022 7:42 AM CDT): Continue per Rheumatology at [facility] in [place] Assessment & Plan (07/01/2022 2:54 PM CDT): cdai = 0, low/remission On xeljanz since 11/04. Lowered dose to 5mg daily in 10/07 based on slightly worsened creatinine. She had a flare in 02/05 which resolved with IM kenalog. However, she still noted having more frequent pain and stiffness since being on lower dose of xeljanz. Her creatinine after that was improved so we went back to the 11mg daily dose and she is doing well. If creatinine worsens we could consider change to Rinvoq which does not have renal dose adjustment. She reports intermittent feeling of warmth in the evenings but has not checked temp. Advise recording temps on a daily basis to see if she is actually running fevers. labs today. F/u 3 months or sooner if needed Assessment & Plan (04/01/2022 3:28 PM CDT): cdai = 0, low/remission On xeljanz since 11/04. Lowered dose to 5mg daily in 10/07 based on slightly worsened creatinine. She had a flare in 02/05 which resolved with IM kenalog. However, she still noted having more frequent pain and stiffness since being on lower dose of xeljanz. Her last creatinine was improved. In 03/08 we increased xeljanz to 5mg BID to use up her current supply then plan to switch back to 11mg XR daily, as long as labs are stable. If creatinine worsens we could consider change to Rinvoq which does not have renal dose adjustment. labs today. F/u 3 months or sooner if needed Assessment & Plan (03/04/2022 1:50 PM CDT): cdai = 6, low On xeljanz since 11/04. Lowered dose to 5mg daily in 10/07 based on slightly worsened creatinine. She had a flare in 02/05 which resolved with IM kenalog. However, she still notes having more frequent pain and stiffness since being on lower dose of xeljanz. Her last creatinine was improved. Will try increasing back to the higher dose of xeljanz and monitor labs. Discussed she can either take 5mg BID to use up her current supply or 11mg XR daily. Follow up in 4 weeks to reassess or sooner as needed. Labs next. Reviewed pcp labs from 02/14/22 Assessment & Plan (02/14/2022 9:01 AM CDT): Continue per [facility]. Assessment & Plan (02/01/2022 2:34 PM CDT): cdai = 16, moderate whereas previously in remission On xeljanz since 11/04. Lowered dose to 5mg daily in 10/07 based on slightly worsened creatinine. Until the last week had been doing very well on this reduced dose. Suspect R shoulder pain today largely due to bicep tendonitis, possibly some rotator cuff involvement. Will give patient a triamcinolone injection today and monitor response. Patient made aware of SE of steroids including but not limited to HTN, increased blood glucose, cataracts, glaucoma, AVN, and osteoporosis with watermelon inspector use. Otherwise plan to continue Xeljanz 5 mg daily. Labs current. Follow up in 4 weeks to reassess or sooner as needed. Assessment & Plan (12/31/2021 2:41 PM ELECTRICAL MAINTENANCE MECHANIC): Images from the original note were not included. cdai = 0, remission On xeljanz since 11/04. Lowered dose to 5mg daily in 10/07 based on slightly worsened creatinine. Doing very well. Off mtx since doing well on xeljanz monotherapy. Off ssz due to GI upset. [place] that leflunomide did not help. Stopped humira due to infections. Inadequate response to Enbrel. R hand u/s in 01/05: Will continue current regimen. Labs today. F/u 3 months Assessment & Plan (10/01/2021 4:33 PM ELECTRICAL MAINTENANCE MECHANIC): Images from the original note were not included. cdai = 0, remission On xeljanz since 11/04. Doing very well. Off mtx since doing well on xeljanz monotherapy. Off ssz due to GI upset. [place] that leflunomide did not help. Stopped humira due to infections. Inadequate response to Enbrel. R hand u/s in 01/05: Will continue current regimen. Labs today. F/u 3 months Labs today. F/u 3 months or sooner if needed Assessment & Plan (08/15/2021 11:32 PM CDT): Continue per Rheum Assessment & Plan (07/06/2021 4:40 PM CDT): Images from the original note were not included. cdai = 1.5, remission On xeljanz since 11/04 with several weeks interruption for COVID this spring. Has now received vaccination also. She had some flares following illness/vaccination but now is feeling great. Off mtx since doing well on xeljanz monotherapy. Off ssz due to GI upset. [place] that leflunomide did not help. Stopped humira due to infections. Inadequate response to Enbrel. R hand u/s in 01/05: Labs today. F/u 3 months or sooner if needed Assessment & Plan (04/05/2021 4:21 PM CDT): Images from the original note were not included. cdai = 13.5, low/moderate On xeljanz since 11/04 with several weeks interruption for COVID this spring. Has now received vaccination also. She called in for flare in February and we gave her an oral prednisone taper, which she reports was helpful. She doesn't feel quite back to 100% since having COVID however. Discussed observing longer with consistent Xeljanz. If not better next we could restart mtx. Off ssz due to GI upset. [place] that leflunomide did not help. Stopped humira due to infections. Inadequate response to Enbrel. R hand u/s in 01/05: Labs today. F/u 3 months or sooner if needed Assessment & Plan (01/17/2021 9:06 PM ELECTRICAL MAINTENANCE MECHANIC): Continue per [facility] Assessment & Plan (01/09/2021 1:14 PM ELECTRICAL MAINTENANCE MECHANIC): Images from the original note were not included. cdai = 9.5, low On xeljanz since 11/04, however she has held it for the last several weeks due to having COVID-19. She is also on augmentin from pcp for sinusitis. Advised she can restart Xeljanz when symptoms are improved and done with abx. Luckily her joints are still doing well but advised the longer she stays off the Xeljanz she will most likely start having increased joint pain/swelling again. Since she was doing so well we d/c the mtx and she remains on xeljanz monotherapy. Off ssz due to GI upset. [place] that leflunomide did not help. Stopped humira due to infections. Inadequate response to Enbrel. R hand u/s in 01/05: Labs in about 4-6 weeks, after restarting xeljanz. F/u 3 months or sooner if worse Assessment & Plan (01/05/2021 11:12 AM ELECTRICAL MAINTENANCE MECHANIC): Continue per Rheum. Has Xeljanz on hold until finishes the antibiotics. Assessment & Plan (10/09/2020 1:01 PM ELECTRICAL MAINTENANCE MECHANIC): Images from the original note were not included. cdai = 15, low/moderate On xeljanz since 11/04. Since she was doing so well we d/c the mtx and she remains on xeljanz monotherapy. She has noticed a mild increase in pain and stiffness since the last visit. Off ssz due to GI upset. [place] that leflunomide did not help. Stopped humira due to infections. Inadequate response to Enbrel. R hand u/s in 01/05: Discussed restarting mtx at low dose (10mg) vs continued observation. Pt opts to continue xeljanz monotherapy for now but will let me know if she worsens and wants to go back on mtx. Labs today. COVID-19 discussed. F/u 3 months or sooner if worse Assessment & Plan (07/15/2020 8:14 PM CDT): Continue per Rhe[facility] Assessment & Plan (07/10/2020 10:26 AM CDT): Images from the original note were not included. cdai = 3, low On xeljanz since 11/04 and feels great. Since she was doing so well we d/c the mtx and she remains on xeljanz monotherapy. Off ssz due to GI upset. [place] that leflunomide did not help. Stopped humira due to infections. Inadequate response to Enbrel. R hand u/s in 01/05: Recent labs from pcp reviewed so none needed today. Advised shingrix. F/u 3 months. COVID-19 discussed. Assessment & Plan (04/11/2020 4:25 PM CDT): Images from the original note were not included. cdai = 4, low On xeljanz for about 5 months and feels great. On mtx 10mg weekly (reduced dose, no worse). Continue folic acid. Off ssz due to GI upset. [place] that leflunomide did not help. Stopped humira due to infections. Inadequate response to Enbrel. R hand u/s in 01/05: Since she has low cdai will try stopping mtx altogether and contiue xeljanz as monotherapy. Labs today. Advised shingrix again. F/u 3 months. COVID-19 discussed. Assessment & Plan (01/11/2020 10:32 AM ELECTRICAL MAINTENANCE MECHANIC): Images from the original note were not included. cdai = 5, low On xeljanz for about 3 months and feels great. On mtx 20mg weekly. Continue folic acid. Off ssz due to GI upset. [place] that leflunomide did not help. Stopped humira due to infections. R hand u/s in 01/05: Since she has low cdai will try reducing mtx to 4 tabs per week. Has order for labs from pcp to do tomorrow, will add esr and crp also. F/u 3 months. If still at low disease activity next we may stop mtx. Advised shingrix again. Assessment & Plan (10/19/2019 5:23 PM ELECTRICAL MAINTENANCE MECHANIC): Images from the original note were not included. cdai = 19.5 On Enbrel for almost 6 months. On mtx 20mg weekly. Off prednisone. Continue folic acid. Off ssz due to GI upset. [place] that leflunomide did not help. Stopped humira due to infections. Pt feels that pain has improved but still has ongoing swelling and stiffness. Currently applying for xeljanz assistance and has not heard back yet. R hand u/s in 01/05: If she gets approval for free Xeljanz then advised to switch over from Enbrel once received. Continue on Enbrel and mtx in the meantime. F/u 2 months. Labs today. Assessment & Plan (08/17/2019 1:40 PM CDT): Images from the original note were not included. cdai = 4, low On Enbrel for 3 months. On mtx 20mg weekly. Finished prednisone taper yesterday. Continue folic acid. Off ssz due to GI upset. [place] that leflunomide did not help. Stopped humira due to infections. We checked R hand u/s in 01/05: Will continue current regimen and observe for worsening since finishing prednisone taper. If she remains under control without prednisone then the Enbrel/mtx are working. If she flares again, then would consider changing meds. F/u 2 months. Labs today. Assessment & Plan (06/22/2019 12:06 PM CDT): Images from the original note were not included. cdai = 4, low Started Enbrel 1 month ago, tolerating well. On mtx 20mg weekly and 5mg prednisone. She tapered from 10mg a few weeks ago and has not had any flares. Discussed a slower taper for reduced risk of flare or adrenal issues. Will reduce by 1mg every 2 weeks. Sent in 1mg prednisone script. Continue folic acid. Off ssz due to GI upset. [place] that leflunomide did not help. Stopped humira due to infections. We checked R hand u/s in 01/05: F/u 2 months. Labs next. Assessment & Plan (05/11/2019 10:27 AM CDT): Images from the original note were not included. Pt had flared over the last few months, now reports resolution of joint pain and stiffness on prednisone 10 Mg daily. Remains on mtx 20mg weekly and folic acid 3mg daily. Sulfasalazine 1 g bid caused dyspepsia, resolved with discontinuation, will not resume. Off arava due to not repsonding. Off humira due to frequent infections. Has enbrel at home but has not started due to recent respiratory illness. Has not taken mtx for the last 2 weeks. She is improving today but still has some cough and drainage. We checked R hand u/s in 01/05: Pt now worried about starting Enbrel due to recent illness and worried she will get sick more often. Discussed that recent data suggests that optimal control of RA will reduce risk of infections, and that uncontrolled RA and/or long-term steroids are more likely to cause infections than our immunosuppressing meds are. Continue methotrexate 20 mg po weekly with folic acid 3 mg daily and prednisone 10 mg daily for now. Will have her begin Enbrel weekly. If joints remain stable will begin tapering prednisone next. Seen with Dr. Frost. F/u 1 month Assessment & Plan (03/30/2019 10:57 AM CDT): Images from the original note were not included. Pt had flared over the last few months, now reports resolution of joint pain and stiffness on prednisone 10 Mg daily. Remains on mtx 20mg weekly and folic acid 3mg daily. Sulfasalazine 1 g bid caused dyspepsia, resolved with discontinuation, will not resume. Off arava due to not repsonding. Off humira due to frequent infections. Enbrel approved, awaiting paperwork for pt assistance. We checked R hand u/s in 01/05: Continue methotrexate 20 mg po weekly with folic acid 3 mg daily and prednisone 10 mg daily while awaiting response on patient assistance for Enbrel. Reviewed recent labs. Follow up in 6 weeks or sooner as needed. Assessment & Plan (03/12/2019 10:36 PM CDT): Images from the original note were not included. High activity today. cdai 52 Pt has flared over the last few months. On mtx 20mg weekly and folic acid 3mg daily. She had temporary relief with prednisone taper. We checked R hand u/s in 01/05: We discussed addition of hcq or ssz and pt preferred to try ssz. She has now been on this 500mg BID dose for over 6 weeks and does not feel any improvement. Will check labs and increase to 1gm BID. Off arava due to not repsonding. Off humira due to frequent infections. Declines more biologics due to h/o frequent infections. However, due to disease burden today pt is interested in looking into xeljanz. We reviewed risks and benefits. Discussed that she may have cost burden due to her insurance, however we can also look into assistance. Will start the process. Will also give 100mg triamcinolone IM due to burden of disease and begin 10mg prednisone daily until next visit. F/u 3-4 weeks. Labs today. Assessment & Plan (01/01/2019 11:37 AM ELECTRICAL MAINTENANCE MECHANIC): Appears to have low activity on exam but pt reports having more frequent joint symptoms than she used to. On mtx 20mg weekly and folic acid 3mg daily. Off arava due to not repsonding. Off humira due to frequent infections. Could consider using ssz, hcq, or aza in the future if needed. Declines more biologics due to h/o frequent infections. Discussed adding hcq to mtx for better control. She is reluctant to add more meds. Will check labs and repeat R hand u/s to help stage disease activity. F/u 3 months or sooner if worse. Assessment & Plan (10/02/2018 11:52 AM ELECTRICAL MAINTENANCE MECHANIC): cdai = 4 Doing better now on mtx 20mg weekly. Continue folic acid 3mg daily. Off arava due to not repsonding. Off humira due to frequent infections. Could consider using ssz and aza in the future if needed. Declines more biologics due to h/o frequent infections. Last U/s showed mild disease with negative power doppler. Will con't with current regimen. Check labs. Add lipid panel for pcp. utd flu shot. F/u 3 mos, sooner if needed. Assessment & Plan (07/03/2018 9:48 AM CDT): cdai = 14 Moderate activity with mtx 20mg weekly. She had 2-3 weeks of being off mtx due to insurance change and delay in prior auth. She has been back on med for almost 3 months but still having more pain and stiffness than usual. Will give 100mg triamcinolone IM to see if it helps settle things down. Off arava due to not repsonding. Off humira due to frequent infections. Can consider using ssz and aza in the future if needed. Will con't with mtx for now. Declines more biologics due to h/o frequent infections. Last U/s showed mild disease with negative power doppler. Will con't with current regimen. F/u 3 mos, sooner if needed. Assessment & Plan (04/01/2018 1:07 PM CDT): Low disease activity with mtx 20mg weekly. Off arava due to not repsonding. Off humira due to frequent infections. Can consider using ssz and aza in the future if needed. Will con't with mtx for now. Declines more biologics due to h/o frequent infections. U/s shows mild disease with negative power doppler. Will con't with current regimen. F/u 3 mos, sooner if needed. Assessment & Plan (01/01/2018 1:19 PM ELECTRICAL MAINTENANCE MECHANIC): Low disease activity with mtx 20mg weekly. Off arava due to not repsonding. Off humira due to frequent infections. Can consider using ssz and aza in the future if needed. Will con't with mtx for now. Declines more biologics due to h/o frequent infections. U/s shows mild disease with negative power doppler. Will con't with current regimen. F/u 3 mos, sooner if needed. Assessment & Plan (09/26/2017 9:32 AM ELECTRICAL MAINTENANCE MECHANIC): Low disease activity with mtx 20mg weekly. Off arava due to not repsonding. Off humira due to frequent infections. Can consider using ssz and aza in the future if needed. Will con't with mtx for now. Declines more biologics due to h/o frequent infections. U/s shows mild disease with negative power doppler. Will con't with current regimen. F/u 3 mos, sooner if needed. Assessment & Plan (06/27/2017 9:56 AM CDT): Low disease activity with mtx 20mg weekly. Off arava due to not repsonding. Off humira due to frequent infections. Discussed other medicines such as ssz, aza but informed of se of those as well. Will con't with mtx for now. Declines more biologics due to h/o frequent infections. U/s shows mild disease with negative power doppler. Will con't with current regimen. F/u 3 mos, sooner if needed. Malignant neoplastic disease 06/27/2015 Overview (02/21/2017): Cancer Resolved Problems Problem Noted Date Diagnosed Date Resolved Date Iron deficiency anemia 07/17/202410/23 Assessment & Plan (07/17/2024 9:29 PM CDT): Patient's labs showed anemia. Follow-up with iron panel and ferritin. May use [id number] iron and vitamin-C to try to rebuild her stores Annual physical exam 06/06/2024 025 Assessment & Plan (02/20/2025 7:25 PM CDT): Encouraged healthy lifestyle, good nutrition and exercise. Encouraged Calcium and Vitamin D and weight bearing exercise for bone health. Reviewed immunizations Reviewed age appropirate screenings. Assessment & Plan (06/06/2024 5:54 PM CDT): Encouraged healthy lifestyle, good nutrition and exercise. Encouraged Calcium and Vitamin D and weight bearing exercise for bone health. Reviewed immunizations Reviewed age appropirate screenings. Acute non-recurrent pansinusitis 06/06/2024 02/20/2025 Assessment & Plan (06/06/2024 5:50 PM CDT): This is a significant, separately identifiable problem that was evaluated and managed on the same day as the wellness exam Start antibiotic, antihistamine (Claritin OR Zyrtec), Mucinex 12hour and Steroid nasal spray (Flonase). Push fluids. Rest. Supportive care. If sxs worsen or don\'t improve, pt is to followup in the office. Encounter for screening colonoscopy 04/20/2024 06/06/2024 Right foot pain 03/29/2024 06/06/2024 Assessment & Plan (03/29/2024 5:11 PM CDT): History of acute pain episode of 1st mtp which is suggestive of podagra. Will check uric acid and also get updated imaging. Will check xrays of hands, feet and u/s of R foot (include transverse view of knee) to look for signs of crystal deposition. Acute cough 11/25/2023 06/06/2024 Assessment & Plan (11/25/2023 10:38 AM ELECTRICAL MAINTENANCE MECHANIC): This is a significant, separately identifiable problem that was evaluated and managed on the same day as the wellness exam Patient has had persistent cough and congestion since having COVID in October. She is now noticing more fullness in the ears and face in her teeth are sensitive to tapping. Suspect she has transitioned to sinusitis. Start antibiotic, antihistamine (Claritin OR Zyrtec), Mucinex 12hour and Steroid nasal spray (Flonase). Push fluids. Rest. Supportive care. If sxs worsen or don\'t improve, pt is to followup in the office. Positive depression screening 11/25/2023 11/25/2023 Assessment & Plan (11/25/2023 10:38 AM ELECTRICAL MAINTENANCE MECHANIC): Patient with positive depression screening. She is currently on Cymbalta and Wellbutrin and feels like this definitely is helping her symptoms. Medicare annual wellness visit, subsequent 11/25/2023 06/06/2024 Assessment & Plan (11/25/2023 10:38 AM ELECTRICAL MAINTENANCE MECHANIC): Encouraged healthy lifestyle, good nutrition and exercise. Encouraged Calcium and Vitamin D and weight bearing exercise for bone health. Reviewed immunizations. Reviewed age appropirate screenings. Medicare Wellness Documentation is completed within the chart Diarrhea 11/15/2023 06/06/2024 Assessment & Plan (11/15/2023 9:53 PM ELECTRICAL MAINTENANCE MECHANIC): Patient is complaining of daily diarrhea/watery stool with minimal cramping even prior to COVID. She is continuing to take daily Colace and or dot Colace. She has not doing a lot of fiber in her diet or supplement. Discussed with patient I suspect that her diarrhea soft stool may be because of the stool softener so encouraged her to pull back on that and see if her stooling returns back to normal. Encouraged increase fiber in her diet whether from dietary source or supplementation like Benefiber FiberCon. Reassess in 3-4 months and if still persistent will need to have stool cultures and the diarrhea workup. BMI 27.0-27.9,adult 06/23/2023 05/25/20 24 Assessment & Plan (11/25/2023 10:37 AM ELECTRICAL MAINTENANCE MECHANIC): Weight/BMI is in healthy range. Continue healthy lifestyle to maintain. Assessment & Plan (11/15/2023 9:54 PM ELECTRICAL MAINTENANCE MECHANIC): Weight/BMI is in healthy range. Continue healthy lifestyle to maintain. Assessment & Plan (06/23/2023 7:40 AM CDT): Weight/BMI is in healthy range. Continue healthy lifestyle to maintain. Anemia 06/23/2023 06/06/2024 Assessment & Plan (06/23/2023 9:02 AM CDT): Patient is having just a slow decline of her hemoglobin hematocrit. Her MCV is still above 90. Denies any active bleeding. Last colonoscopy was in July of 2021. She had adenomas so plan to repeat in 3 years. Will check iron panel and ferritin. If stable will have her start with an iron supplementation and monitor closely. If iron indices are low may consider referral pending those results Flu vaccine need 08/22/2022 06/23/2023 Assessment & Plan (08/22/2022 7:43 AM CDT): Updated in office today Cough 07/05/2022 12/22/2022 Assessment & Plan (07/05/2022 12:09 PM CDT): Patient to presume positive COVID/FLU until results are available and plan to self isolate for up to 10 days from the onset of sxs. Check COVID/FLU test thru [facility] [place]. Appt set for 12:45p I will send Augmentin to the pharm for sinusitis IF the COVID is negative. Reminded her to stop Xeljanz per Rheum if on antibiotics. Let pt know the newest CDC recommendations are as follows: If positive COVID: Stay home for at least 5 days and isolate from others in your home. Wear a well-fitted mask if you must be around others in your home. End isolation after 5 full days if you are fever-free for 24 hours (without the use of fever-reducing medication) and your symptoms are improving. Wear a well-fitted mask for 10 full days any time you are around others inside your home or in public. Do not go to places where you are unable to wear a mask. Avoid travel Avoid being around people who are at high risk Consider mAb/Paxlovid or there appropriate meds depending on risk factors. If positive FLU, complete 5 day quarantine and be fever free for 24 hours without meds and may consider antiviral based on timing and risk factors. If negative, treat sxs and observe. Treat sxs with Tylenol, Cough/cold medication otc and add VitD 5,000IU daily and Zinc 50mg daily. Monitor sxs and call or go to the ER if has any of the following: --trouble breathing --persistent pain or pressure in the chest --new confusion --inability to wake or stay awake -- bluish lips or face Postnasal drip 07/01/2022 12/22/2022 Assessment & Plan (07/01/2022 2:53 PM CDT): This has been a longstanding issue. Recommend seeing ENT and/or pilot fuel engineer if she wishes to pursue more investigation Skin lesions 04/28/2022 06/06/2024 Assessment & Plan (04/28/2022 12:07 AM CDT): Patient has multiple skin lesions. She would like them evaluated by the brim blocker. Provided multiple names of brim blocker in the area for her to call if she wants to be seen as soon as possible. Will await her call to make the referral. BMI 26.0-26.9,adult 02/14/2022 06/23/20 23 Assessment & Plan (12/17/2022 9:27 AM ELECTRICAL MAINTENANCE MECHANIC): Weight/BMI is in healthy range. Continue healthy lifestyle to maintain. Weight/BMI is in healthy range. Continue healthy lifestyle to maintain. Assessment & Plan (08/22/2022 7:42 AM CDT): Weight/BMI is in healthy range. Continue healthy lifestyle to maintain. Assessment & Plan (02/14/2022 8:08 AM CDT): Weight/BMI is in healthy range. Continue healthy lifestyle to maintain. BMI 27.0-27.9,adult 01/29/2022 02/15/20 22 Assessment & Plan (01/29/2022 11:55 AM CDT): Weight/BMI is in healthy range. Continue healthy lifestyle to maintain. BMI 25.0-25.9,adult 08/15/2021 01/30/20 22 Assessment & Plan (08/15/2021 10:05 AM CDT): Weight/BMI is in healthy range. Continue healthy lifestyle to maintain. Need for immunization against influenza 08/15/2021 06/23/2023 Assessment & Plan (08/15/2021 11:32 PM CDT): Updated in office today Breast cancer screening by mammogram 08/15/2021 11/15/2023 Assessment & Plan (06/23/2023 9:01 AM CDT): Mammogram order provided Assessment & Plan (12/22/2022 8:52 PM ELECTRICAL MAINTENANCE MECHANIC): Patient unable to do mammogram until her shoulder heals. Assessment & Plan (02/14/2022 9:01 AM CDT): Mammogram order provided Assessment & Plan (08/15/2021 11:31 PM CDT): Mamm due in 10/2021. Order provided Medicare annual wellness visit, subsequent 08/15/2021 12/22/2022 Assessment & Plan (08/22/2022 7:42 AM CDT): Encouraged healthy lifestyle, good nutrition and exercise. Encouraged Calcium and Vitamin D and weight bearing exercise for bone health. Reviewed immunizations. Reviewed age appropirate screenings. Medicare Wellness Documentation is completed within the chart Assessment & Plan (08/15/2021 11:33 PM CDT): Encouraged healthy lifestyle, good nutrition and exercise. Encouraged Calcium and Vitamin D and weight bearing exercise for bone health. Reviewed immunizations. Reviewed age appropirate screenings. Medicare Wellness Documentation is completed within the chart Facial laceration 08/11/2021 06/23/2023 Assessment & Plan (08/11/2021 6:44 PM CDT): Repair is healing well. A few of the sutures are beginning to push out but these are all internal and will dissolve. Instructed patient to continue with the Vaseline to the area keeping the area moist. Encouraged her to follow-up with the ENT at [facility] that place them for a final evaluation. If she has any signs of infection increased pain redness swelling or fever she is to follow up immediately. Assessment & Plan (08/11/2021 6:39 PM CDT): Healing well. Complete antibiotics Follow with ENT/Plastics at [facility] as instructed. BMI 25.0-25.9,adult 07/31/2021 10/12/20 Assessment & Plan (07/17/2024 9:29 PM CDT): Weight/BMI is in healthy range. Continue healthy lifestyle to maintain. Assessment & Plan (06/06/2024 5:51 PM CDT): Weight/BMI is in healthy range. Continue healthy lifestyle to maintain. Assessment & Plan (07/31/2021 11:43 AM CDT): Weight/BMI is in healthy range. Continue healthy lifestyle to maintain. BMI 26.0-26.9,adult 01/18/2021 07/31/20 Assessment & Plan (01/18/2021 7:47 AM ELECTRICAL MAINTENANCE MECHANIC): Weight/BMI is in healthy range. Continue healthy lifestyle to maintain. Fatigue 01/18/2021 06/06/2024 Assessment & Plan (09/15/2022 5:25 PM CDT): Probably multifactorial. Check labs and followup to re-evaluate Assessment & Plan (02/14/2022 9:01 AM CDT): Probably multifactorial. Check labs and followup to re-evaluate Assessment & Plan (01/18/2021 8:35 AM ELECTRICAL MAINTENANCE MECHANIC): Probably multifactorial. Check labs and followup to re-evaluate Annual physical exam 01/17/2021 023 Assessment & Plan (12/22/2022 8:52 PM ELECTRICAL MAINTENANCE MECHANIC): Encouraged healthy lifestyle, good nutrition and exercise. Encouraged Calcium and Vitamin D and weight bearing exercise for bone health. Reviewed immunizations Reviewed age appropirate screenings. Assessment & Plan (02/14/2022 9:00 AM CDT): Encouraged healthy lifestyle, good nutrition and exercise. Encouraged Calcium and Vitamin D and weight bearing exercise for bone health. Reviewed immunizations Reviewed age appropirate screenings. Assessment & Plan (01/18/2021 8:33 AM ELECTRICAL MAINTENANCE MECHANIC): Encouraged healthy lifestyle, good nutrition and exercise. Encouraged Calcium and Vitamin D and weight bearing exercise for bone health. Reviewed immunizations Reviewed age appropirate screenings. Acute frontal sinusitis 01/05/202107/19 Assessment & Plan (01/18/2021 8:32 AM ELECTRICAL MAINTENANCE MECHANIC): Improving with antibiotic. Continue antihistamine (Claritin OR Zyrtec), Mucinex 12hour and Steroid nasal spray (Flonase). Push fluids. Assessment & Plan (01/05/2021 11:12 AM ELECTRICAL MAINTENANCE MECHANIC): Start antibiotic, antihistamine (Claritin OR Zyrtec), Mucinex 12hour and Steroid nasal spray (Flonase). Push fluids. Rest. Supportive care. If sxs worsen or don\'t improve, pt is to followup in the office. Depression 10/09/2020 01/17/2021 Assessment & Plan (10/09/2020 1:04 PM ELECTRICAL MAINTENANCE MECHANIC): Increased fatigue, depressed mood, and decreased motivation recently. Pt is not looking forward to the holidays. Missing her son who 5 yrs ago. Encouraged to consider going back to counseling. Discuss with pcp possible med changes. Also try to incorporate daily exercise which can help with mood and fatigue. Acute recurrent pansinusitis 10/03/2020 01/05/2021 Assessment & Plan (12/19/2020 3:46 PM ELECTRICAL MAINTENANCE MECHANIC): Will send patient to [place] for Covid-19 testing. The patient was advised to quarantine at least 10 days from symptom onset, but this determination will depend on result of testing. They were advised to contact us in the next 72h if they have not heard results of testing. They were advised to report to the ER if worsening. She was advised to start using proventil inh q6h as needed for chest tightness/wheezing. She declines a po prednisone at this time. Assessment & Plan (10/03/2020 2:26 PM ELECTRICAL MAINTENANCE MECHANIC): Advised increased fluids, rest. Will continue with mucinex otc. Advised f/u in 1w if not improving, sooner if worsening. Cough 09/26/2020 09/26/2020 Medicare annual wellness visit, subsequent 07/10/2020 01/17/2021 Assessment & Plan (07/15/2020 8:17 PM CDT): Encouraged healthy lifestyle, good nutrition and exercise. Encouraged Calcium and Vitamin D and weight bearing exercise for bone health. Reviewed immunizations. Reviewed age appropirate screenings. Medicare Wellness Documentation is completed within the chart Cough 01/11/2020 01/05/2021 Assessment & Plan (12/19/2020 3:46 PM ELECTRICAL MAINTENANCE MECHANIC): Will send patient to [place] for Covid-19 testing. The patient was advised to quarantine at least 10 days from symptom onset, but this determination will depend on result of testing. They were advised to contact us in the next 72h if they have not heard results of testing. They were advised to report to the ER if worsening. She was advised to start using proventil inh q6h as needed for chest tightness/wheezing. She declines a po prednisone at this time. Assessment & Plan (09/26/2020 12:12 PM ELECTRICAL MAINTENANCE MECHANIC): Patient to presume positive COVID until results are available and self isolate for 14 days from the onset of sxs. Will order testing thru [facility] in [place]. Treat sxs with otc products. Has albuterol to use prn. Monitor sxs and call or go to the ER if has any of the following: --trouble breathing --persistent pain or pressure in the chest --new confusion --inability to wake or stay awake -- bluish lips or face If patient has been in close contact with anyone, they should be notified and instructed to quarantine per CDC guidelines for 14 days after last exposure to the positive COVID patient and monitor closely for symptoms of COVID. If they appear they should be tested. Close contact includes: --You were within 6 feet of someone who has COVID-19 for a total of 15 minutes or more --You provided care at home to someone who is sick with COVID-19 --You had direct physical contact with the person (hugged or kissed them) --You shared eating or drinking utensils --They sneezed, coughed, or somehow got respiratory droplets on you Additional Steps to avoid exposure/spread include: Avoid crowded places where close contact with others may occur, such as shopping centers, movie theaters, dormitories, or stadiums. Avoid transit where close contact with others may occur, such as planes, trains, and buses. Maintain a distance of approximately 6 feet from other people whenever possible (spacing out if you are in a line, leaving 2 seats in between others at a waiting room when possible). Wash your hands with soap and water often. If needed, use a hand electrolysis operator that contains at least 60% alcohol. Clean and disinfect frequently touched surfaces such as tables, doorknobs, countertops, etc daily. Avoid touching your eyes, nose, and mouth when possible. Assessment & Plan (01/11/2020 5:03 PM ELECTRICAL MAINTENANCE MECHANIC): Pt had questions about mtx and pulm fibrosis due to friend recently being diagnosed. discussed that data suggests incidence of ILD related to mtx is low and that uncontrolled RA is a more likely cause. She had cxr in 05/05 showing hyperinflation only. She does have some ongoing cough which she attributes to PND and possibly GERD. I suggested she ask pcp for referral to pulmonary for eval to include PFTs, CT. Pt will think about it. Colon cancer screening 01/03/202008/15 Assessment & Plan (01/17/2021 9:07 PM ELECTRICAL MAINTENANCE MECHANIC): Has had multiple referrals to Dr. Phillips but she has cancelled due to fear of COVID. Encouraged. Assessment & Plan (07/15/2020 8:16 PM CDT): Will need to reschedule due to COVID. Already in contact with Dr. Phillips Chronic low back pain 01/03/20202023 Assessment & Plan (01/18/2021 8:35 AM ELECTRICAL MAINTENANCE MECHANIC): No injury. Check xray due to history osteopenia. Offered PT. She declines. Encouraged stretching/activity and topical (votaren gel/lidocaine patches) Other fatigue 01/03/2020 07/10/2020 Assessment & Plan (01/03/2020 1:23 PM ELECTRICAL MAINTENANCE MECHANIC): Probably multifactorial. Check labs and followup to re-evaluate Dermatitis 10/19/2019 06/06/2024 Assessment & Plan (07/15/2020 8:17 PM CDT): Triamcinolone prn Assessment & Plan (07/10/2020 10:04 AM CDT): Scattered rashes primarily to L lower leg which could be eczema, cutter aluminum sheet's nodules, or precancerous lesion due to scaliness. Due to distribution I do not think this represents a drug reaction. Recommend derm opinion. Assessment & Plan (10/19/2019 5:25 PM ELECTRICAL MAINTENANCE MECHANIC): Scattered rashes primarily to L lower leg which could be eczema. Due to distribution I do not think this represents a drug reaction. Also reporting dry skin all over, gave recs for how to manage dry skin. Recommend derm opinion. Need for vaccination with 13 -polyvalent pneumococcal conjugate vaccine 08/30/2019 0 Assessment & Plan (08/30/2019 7:55 PM CDT): Updated in office Annual physical exam 08/30/2019 020 Assessment & Plan (08/30/2019 9:42 AM CDT): Encouraged healthy lifestyle, good nutrition and exercise. Encouraged Calcium and Vitamin D and weight bearing exercise for bone health. Reviewed immunizations Reviewed age appropirate screenings. Need for immunization against influenza 08/30/2019 07/10/2020 Assessment & Plan (08/30/2019 7:55 PM CDT): Updated in office Breast cancer screening by mammogram 08/30/2019 07/10/2020 Assessment & Plan (08/30/2019 7:58 PM CDT): Mammogram order provided BMI 26.0-26.9,adult 07/29/2019 01/19/20 21 Assessment & Plan (07/15/2020 8:15 PM CDT): Weight/BMI is in healthy range. Continue healthy lifestyle to maintain. Assessment & Plan (01/03/2020 1:22 PM ELECTRICAL MAINTENANCE MECHANIC): Weight/BMI is in healthy range. Continue healthy lifestyle to maintain. Assessment & Plan (08/30/2019 8:27 AM CDT): Weight/BMI is in healthy range. Continue healthy lifestyle to maintain. Assessment & Plan (07/29/2019 7:39 AM CDT): Weight/BMI is in healthy range. Continue healthy lifestyle to maintain. Severe episode of recurrent major depressive disorder, without psychotic features 07/29/201904/2025 Assessment & Plan (02/20/2025 7:24 PM CDT): Depression stable with Cymbalta 60 Assessment & Plan (10/23/2024 10:16 PM ELECTRICAL MAINTENANCE MECHANIC): Stable with Cymbalta 60. Discussed increasing for increased pain control but she declines at this time Assessment & Plan (07/17/2024 9:28 PM CDT): Depression symptoms seem to be improving. Discussed discontinuing medicines and would recommend not discontinuing all of them at once. Advised her Cymbalta also helps with pain so she may want to stay on this even with controlled depression symptoms. Willing to stop the Wellbutrin at this point and encouraged her to monitor closely. Her depression symptoms return we can restart it at any time. Assessment & Plan (06/06/2024 5:49 PM CDT): Stable with Cymbalta and Wellbutrin Assessment & Plan (11/25/2023 10:37 AM ELECTRICAL MAINTENANCE MECHANIC): Stable with Wellbutrin and Cymbalta Assessment & Plan (11/15/2023 9:53 PM ELECTRICAL MAINTENANCE MECHANIC): Depression has been stable with Cymbalta Wellbutrin XL 150 Assessment & Plan (06/23/2023 9:01 AM CDT): Stable with Cymbalta 60 Wellbutrin XL 150 Assessment & Plan (12/22/2022 8:52 PM ELECTRICAL MAINTENANCE MECHANIC): This is a significant, separately identifiable problem that was evaluated and managed on the same day as the wellness exam Has been on Cymbalta. She states she was feeling overwhelmed but never started the Wellbutrin. Willing to consider. Reviewed risks benefits alternatives side effects and proper use. Start Wellbutrin XL 150 q.a.m.. Follow-up in 6 weeks to reassess or sooner for any other problems or concerns. Assessment & Plan (09/15/2022 5:27 PM CDT): This is a significant, separately identifiable problem that was evaluated and managed on the same day as the wellness exam Not fully controlled with Cymbalta -- Never started the Wellbutrin but willing to consider restarting it today. Reviewed risks, benefit, alternatives, side effects and proper use. Take first thing in the AM No history of seizures. Followup 6 weeks to reassess. Assessment & Plan (04/28/2022 12:10 AM CDT): Continue Wellbutrin 150 daily as her symptoms are pretty stable. Assessment & Plan (02/14/2022 9:00 AM CDT): Stable with the Cymbalta. Refills sent to pharmacy Assessment & Plan (08/15/2021 11:32 PM CDT): Stable with cymbalta Assessment & Plan (01/17/2021 9:08 PM ELECTRICAL MAINTENANCE MECHANIC): Improving/stable with cymbalta. Assessment & Plan (07/15/2020 8:15 PM CDT): Continue cymbalta Assessment & Plan (01/03/2020 1:22 PM ELECTRICAL MAINTENANCE MECHANIC): Improving/ more stable. Continue with the Cymbalta 60mg. Assessment & Plan (08/30/2019 7:57 PM CDT): This is a significant, separately identifiable problem that was evaluated and managed on the same day as the wellness exam Sxs have improved with the addition of the cymbalta 60mg. At this point she feels like she still has emotions, but they are present and much more appropriate. Wants to monitor and continue with current dose at this point. If sxs plateua in control or increase she is to followup sooner. Still encouraged to consider counseling. Assessment & Plan (07/29/2019 1:10 PM CDT): Patient has been struggling with grief and depression for the last 3 years. Her son and she struggles with talking with anyone even her . Has friends and feels like she has support but just not any when she can sure things within feels as though she is crying more and more. Her rheumatoid arthritis is not well controlled on the pain med times is overwhelming also up. No suicidal or homicidal thoughts. Willing to consider medications. Will start Cymbalta 30 mg x1 week and then increase to the 60 mg. Will continue to monitor closely. Encourage counseling and provided handouts on the once in the area. Also encouraged group sessions with a grief support group and information was also provided. Encouraged her to call with any questions or concerns will follow up in about 4 weeks to reassess. Breast cancer screening 07/29/2019 03/0 01/2021 Assessment & Plan (07/15/2020 8:15 PM CDT): Mammogram order provided Assessment & Plan (08/30/2019 9:43 AM CDT): Mammogram order provided Frequent sinus infections 06/27/2017 Assessment & Plan (05/11/2019 12:21 PM CDT): Immune globulins normal in 2016 Assessment & Plan (06/27/2017 9:52 AM CDT): Will check immunoglobulins with labs. Discussed seeing jacket preparer if they come back low. Encounter for long-term (cur rent) use of other medications 05/15/2017 07/03/2018 Encounters Date Type Department Care Team Description 07/25/2025 Telephone [facility] Family Medicine [address] [phone] Lizzette Bunn PA 07/20/2025 3:30 PM CDT Office Visit [address] [phone] Lizzette Bunn PA Cervical spondylosis (Primary Dx); Lumbar spondylosis; Chronic left shoulder pain; Neck pain; Right groin pain; Heel pain, unspecified laterality; BMI 25.0-25.9,adult 07/05/2025 Results Follow-Up [facility] [address] [place] [phone] Chana uDggan PA CBC with auto differential, Comprehensive metabolic panel, CRP (acute phase), Erythrocyte sedimentation rate 07/04/2025 2:45 PM CDT Office Visit [facility] [address] [place] [phone] Chana Duggan PA Rheumatoid arthritis of multiple sites without rheumatoid factor (HCC) (Primary Dx); Encounter for long-term (current) use of medications; Age-related osteoporosis without current pathological fracture; Cervical spondylosis; Lumbar spondylosis 07/04/2025 Orders Only [facility] Health Information Management [address] [place] [id number] Lizzette Bunn PA 06/08/2025 Results Follow-Up [address] [phone] Lizzette Bunn PA XR Spine Cervical Complete 4 Or 5 Vw, XR Spine Lumbar 2 Or 3 Vw 05/31/2025 10:30 AM CDT Office Visit [address] [phone] Lizzette Bunn PA Medicare annual wellness visit, subsequent (Primary Dx); Neck pain; Chronic right-sided low back pain with right-sided sciatica; Moderate episode of recurrent major depressive disorder (HCC); Rheumatoid arthritis of multiple sites without rheumatoid factor (HCC); Prediabetes; Vitamin D deficiency; Stage 3a chronic kidney disease (HCC); Gastroesophageal reflux disease without esophagitis; Age-related osteoporosis without current pathological fracture; Mixed hyperlipidemia; BMI 24.0-24.9, adult from Last 3 Months Immunizations Immunization Administration Dates Next Due Influenza, Quadrivalent, Hig h Dose, Preservative Free, Intrr 09/10/2023,08/22/2022,08/15/2021,08/30,08/30/2019 Influenza, Trivalent, High D ose, Split, Preservative Free, Intramuscular 08/25/2024,08/30/2019 Influenza, Trivalent, IM (MDV) 09/25/2013,2011 Influenza, Unspecified 08/17/2021,10/02/2020 Pfizer SARS-CoV-2 Monovalent Vaccination (12+ Yrs) PURPLE 11/26/2021,03/31/2021,02/17/2021 Pneumococcal Conjugate PCV 13 08/30/2019 Pneumococcal Polysaccharide PPV23 02/15/2015,04/2015 Tdap 07/28/2021,06/10/2011 ZOSTER LIVE 07/26/2015 ZOSTER Recombinant 10/02/2020 Surgical History Surgery Date Site/Laterality Comments NECK MASS EXCISION 11/17/2012 - 11/16/2013 nodule PARTIAL HYSTERECTOMY 11/17/1972 - 11/16/1973 COLONOSCOPY APPENDECTOMY 1973 HYSTERECTOMY 1973 SHUNT EXTERNALIZATION CATARACT EXTRACTION 2008 Medical History Medical History Date Comments Rheumatoid arthritis (HCC) Chronic diarrhea Chronic constipation Depression Cancer (HCC) uterine cancer Colon polyp GERD (gastroesophageal reflux disease) Many yrs ago Chronic bronchitis (HCC) 5 yrs ago Bulimia nervosa Anxiety Infection Today Family History Medical History Relation Name Comments Heart attack Brother 2 Alzheimer's disease Mother Rehner Mental illness Mother Rehner Relation Name Status Comments Brother 2 Alive Father Mother Rehner Social History Tobacco Use Types Packs/Day Years Used Date Smoking Tobacco: Former Cigarettes Smokeless Tobacco: Never Tobacco Cessation:Counseling Given: Not Answered Comments:Smoking History Packs/day: 1 Packs Alcohol Use Standard Drinks/Week Comments Yes 6 (1 standard drink = 0.6 oz pur e alcohol) PHQ-2 Answer Date Recorded PHQ-2 Total Score (If total score is 3 or more points, staff should administer the PHQ-9) 1 07/20/2025 AUDIT-C Answer Date Recorded Q1: How often do you have a drink containing alc ohol? 2-3 times a week 07/20/2025 Q2: How many drinks containi ng alcohol do you have on a typical day when you are drinking? 3 or 4 07/20/2025 Q3: How often do you have si x or more drinks on one occasion? Less than monthly 07/20/2025 Personal Safety Answer Date Recorded Have you ever been in or are you currently in a harmful physical or emotional relationship or is someone making you feel afraid or unsafe? Denies 04/27/2024 Comments Unknown Sex and Gender Information Value Date Recorded Sex Assigned at Not on file Legal Sex Female 9:32 PM ELECTRICAL MAINTENANCE MECHANIC Gender Identity Female 01/05/2021 10:27 AM ELECTRICAL MAINTENANCE MECHANIC Sexual Orientation Straight 01/05/2021 10 :27 AM ELECTRICAL MAINTENANCE MECHANIC Obstetrics History Last Filed Vital Signs Vital Sign Reading Time Taken Comments Blood Pressure 128/70 07/20/2025 3:34 PM CDT Pulse 75 07/20/2025 3:34 PM CDT Temperature 36.8 C (98.2 F) 07/20/2025 3:34 PM CDT Respiratory Rate 18 04/27/2024 3:55 PM CDT Oxygen Saturation 97% 07/20/2025 3:34 PM CDT Inhaled Oxygen Concentration - - Weight 67.1 kg (148 lb) 07/20/2025 3:34 PM CDT Height 162.6 cm (5' 4) 07/20/2025 3:34 PM CDT Body Mass Index 25.4 07/20/2025 3:34 PM CDT Plan of Treatment Health Maintenance Due Date Last Done Comments Hepatitis C Screening 1945 Hepatitis B Screening 1963 Zoster Vaccine (2 of 2) 11/27/2020 10/02/2020, 07/26 Breast Cancer Screening-Mammogram 10/07/2024 10/07/2023, 10/23/2020, 10/06/2019, Additional history exists Colon Cancer Screening-FIT 04/27/2025 04/27/2024, Colon Cancer Screening-FOBT 04/27/2025 04/27/2024, 0 08/13/2021 Covid-19 Vaccine (4 - 2024-2 6 season) 2025 11/26/2021, 03/31/2021, 02/17/2021 Influenza Vaccine (#1) 2025 , 09/10/2023, 08/22/2022, Additional history exists Osteoporosis Screening-Bone Density Scan 04/15/2026 04/15/2024, 03/23/2019 Well Visit 65+ 05/31/2026 05/31/2025, 01/16, 05/25/2024, Additional history exists Depression Screening 07/20/2026 07/20/2025, 05/31/2025, 02/11/2025, Additional history exists Fall Risk Assessment 07/20/2026 07/20/2025, 05/31/2025, 02/11/2025, Additional history exists Colon Cancer Screening-Colonoscopy 04/27/20272023, 08/13/2021 Colon Cancer Screening-DNA Stool 04/27/2027 04/27/20 24, 08/13/2021 Colorectal Cancer Screening 04/27/2027 Colon Cancer Screening-CT Colonography 04/27/2029 04/27/2024, 08/13/2021 Colon Cancer Screening-Sigmoidoscopy 04/27/2029 04/27/2024, 08/13/2021 DTaP/Tdap/Td Vaccine (3 - Td or Tdap) 07/28/2031 07/28/2021, 06/10/2011 Pneumococcal vaccine 65+ Completed 019, 02/15/2015, 12/23/2014 Procedures Procedure Name Priority Date/Time Associated Diagnosis Comments ERYTHROCYTE SEDIMENTATION RATE Routine 07/04/2025 3:09 PM CDT Rheumatoid arthritis of multiple sites without rheumatoid factor (HCC) Encounter for long-term (current) use of medications CRP (ACUTE PHASE) Routine 07/04/2025 3:0 9 PM CDT Rheumatoid arthritis of multiple sites without rheumatoid factor (HCC) Encounter for long-term (current) use of medications COMPREHENSIVE METABOLIC PANEL Routine 07/04/2025 3:09 PM CDT Rheumatoid arthritis of multiple sites without rheumatoid factor (HCC) Encounter for long-term (current) use of medications CBC WITH AUTO DIFFERENTIAL Routine 07/04/2025 3:09 PM CDT Rheumatoid arthritis of multiple sites without rheumatoid factor (HCC) Encounter for long-term (current) use of medications SCAN - LABS 07/04/2025 XR SPINE LUMBAR 2 OR 3 VIEWS Schedule Routine, Read Routine (OP Routine) 06/01/2025 Chronic right-sided low back pain with right-sided sciatica XR SPINE CERVICAL COMPLETE 4 OR 5 VW Schedule Routine, Read Routine (OP Routine) 06/01/2025 Neck pain COLONOSCOPY 04/27/2024 10:11 AM CDT HM DEXA SCAN Routine 04/15/2024 11:39 AM CDT SCREENING MAMMOGRAM BILATERAL W MASTER Schedule Routine, Read Routine (OP Routine) 10/07/2023 Breast cancer screening by mammogram from Last 3 Months or Most Recently Relevant to Health Maintenance Results * (ABNORMAL) CBC with auto differential (07/04/2025 3:09 PM CDT) Pathologist [facility] WBC 4.9 3.8 - 10.8 Thousand/u L [facility] RBC, POC 3.20(L) 3.80 - 5.10 Million/uL [facility] Hgb 10.4(L) 11.7 - 15.5 g/dL [facility] Hct 33.3(L) 35.0 - 45.0 % [facility] MCV 104.1(H) 80.0 - 100.0 fL [facility] MCH 32.5 27.0 - 33.0 pg [facility] MCHC 31.2(L) 32.0 - 36.0 g/dL [facility] Comment: For adults, a slight decrease in the calculated MCHC value (in the range of 30 to 32 g/dL) is most likely not clinically significant; however, it should be interpreted with caution in correlation with other red cell parameters and the patient's clinical condition. Rdw 13.6 11.0 - 15.0 % [facility] Platelets 248 140 - 400 Thousand/u L [facility] MPV 10.1 7.5 - 12.5 fL [facility] Neutrophils, abs 2,646 1,500 - 7,800 cells/uL [facility] Lymphocytes, abs 1,480 850 - 3,900 cells/uL [facility] Monocyte abs 676 200 - 950 cells/uL [facility] Eosinophils, abs 69 15 - 500 cells/uL [facility] Basophils, abs 29 0 - 200 cells/uL [facility] Neutrophils 54 % [facility] Lymphocyte pct 30.2 % [facility] Monocytes 13.8 % [facility] Eosinophils 1.4 % [facility] Basophils 0.6 % [facility] Blood 07/04/2025 3:09 PM CDT 07/04/2025 3:09 PM CDT [facility]LOOD ORDERABLES Fin al Result Performing Organization Address City/[facility] Co de Phone Number [facility] [address] [place] [address] * Erythrocyte sedimentation rate (07/04/2025 3:09 PM CDT) Pathologist [facility] Erythrocyte sedimentation rate 11 < OR = 30 mm/h [facility] Blood 07/04/2025 3:09 PM CDT 07/04/2025 3:09 PM CDT [facility] Fin al Result Performing Organization Address City/State/[facility] Co de Phone Number [facility] [address] [place] [address] * CRP (acute phase) (07/04/2025 3:09 PM CDT) C-RP <3.0 <8.0 mg/L [facility] Blood 07/04/2025 3:09 PM CDT 07/04/2025 3:09 PM CDT us Chana STEVE LAB BLOOD ORDERABLES Fin al Result [facility] [address] [address] [phone] * (ABNORMAL) Comprehensive metabolic panel (07/04/2025 3:09 PM CDT) Glucose 84 65 - 99 mg/dL [facility] Comment: Fasting reference interval BUN 26(H) 7 - 25 mg/dL [facility] Creatinine 1.31(H) 0.60 - 1.00 mg/dL [facility] eGFR 41(L) > OR = 60 mL/min/1.7 3m2 [facility] BUN/creat ratio 20 6 - 22 (calc) [facility] Sodium 138 135 - 146 mmol/L [facility] Potassium, pl 4.2 3.5 - 5.3 mmol/L [facility] Chloride 103 98 - 110 mmol/L [facility] CO2 28 20 - 32 mmol/L [facility] Calcium 9.8 8.6 - 10.4 mg/dL [facility] Protein, sr 7.4 6.1 - 8.1 g/dL [facility] Albumin 4.8 3.6 - 5.1 g/dL [facility] GLOBULIN 2.6 1.9 - 3.7 g/dL (calc) [facility] Alb/glob ratio 1.8 1.0 - 2.5 (calc) [facility] Bilirubin, total 0.3 0.2 - 1.2 mg/dL [facility] Alk phos 32(L) 37 - 153 U/L [facility] AST 25 10 - 35 U/L [facility] ALT (SGPT) 15 6 - 29 U/L [facility] Blood 07/04/2025 3:09 PM CDT 07/04/2025 3:09 PM CDT Chana STEVE LAB BLOOD ORDERABLES Fin al Result [facility] [address] [address] [phone] * SCAN - LABS (07/04/2025) Lizzette STEVE Final Resu lt * (ABNORMAL) XR Spine Lumbar 2 Or 3 Vw (06/01/2025) Anatomical Region Laterality Modality Spine N/A Radiographic Odalis ging 06/01/2025 Impressions 06/02/2025 3:59 PM CDT No acute osseous abnormality of the lumbar spine Multilevel DDD Lizzette STEVE IMG XR PROCEDURES Final Re sult * (ABNORMAL) XR Spine Cervical Complete 4 Or 5 Vw (06/01/2025) Anatomical Region Laterality Modality Spine N/A Radiographic Odalis ging 06/01/2025 Impressions 06/01/2025 4:24 PM CDT Advanced degenerative spondylosis as above .6mm anterolisthesis of c4 over c5 Lizzette STEVE IMG XR PROCEDURES Edited R esult - Final * Colonoscopy (04/27/2024 10:11 AM CDT) Anatomical Region Laterality Modality Other Narrative Procedure Note Pantera Reyes MD - 04/27/2024 10:11 AM CDT [facility] Patient Name: Dona Cardenas Procedure Date: 04/27/2024 10:11 AM Date of : 1945 Admit Type: Outpatient Age: 78 Gender: Female Attending MD: Pantera Reyes M.D. Room: [facility] ENDOSCOPY ROOM [facility] Note Status: Finalized Procedure: Colonoscopy Indications: High risk colon cancer surveillance: Personalhistory of colonic polyps Referring MD: Providers: Pantera Reyes M.D. Medicines: Monitored Anesthesia Care Complications: No immediate complications. Estimated Blood Loss: Estimated blood loss: none. Procedure: Pre-Anesthesia Assessment: - Prior to the procedure, a History and Physicalwas performed, and patient medications and allergieswere reviewed. The risks and benefits of the procedureand the sedation options and risks were discussed withthe patient. All questions were answered and informed consent was obtained. Patient identification and proposed procedure were verified. After reviewingthe risks and benefits, the patient was deemed in satisfactory condition to undergo the procedure.The anesthesia plan was to use monitored anesthesiacare (MAC). Immediately prior to administration of medications, the patient was re-assessed foradequacy to receive sedatives. The heart rate, respiratory rate, oxygen saturations, blood pressure, adequacyof pulmonary ventilation, and response to care were monitored throughout the procedure. The physical status of the patient was re-assessed after the procedure. The benefits, risks and alternatives of theprocedure and sedation were discussed and informed consentwas obtained. All questions were answered. Please referto the signed informed consent document in the medical record. The scope was passed under direct vision.The [id number] colonoscope was introduced through theanus and advanced to the cecum, identified byappendiceal orifice and ileocecal valve. The colonoscopy was performed without difficulty. The patient tolerated the procedure well. The quality of the bowel preparation was good. Scope withdrawal time was 14 minutes. Prep was administered in a split dose. Findings: The perianal and digital rectal examinations were normal. A 10 mm polyp was found in the cecum. The polyp was sessile. Thepolyp was removed with a hot snare. Resection and retrieval werecomplete. A 15 mm polyp was found in the ascending colon. The polyp wassessile. The polyp was removed with a hot snare. Resection and retrieval were complete. To prevent bleeding post-intervention, one hemostatic clipwas successfully placed. Clip investigator: [employer]. There wasno bleeding at the end of the procedure. Non-bleeding internal hemorrhoids were found during retroflexion. The hemorrhoids were small. The exam was otherwise without abnormality. Impression: - One 10 mm polyp in the cecum, removed with a hot snare. Resected and retrieved. - One 15 mm polyp in the ascending colon, removedwith a hot snare. Resected and retrieved. Clip wasplaced. Clip investigator: [employer]. - Non-bleeding internal hemorrhoids. - The examination was otherwise normal. Recommendation: - Patient has a contact number available for emergencies. The signs and symptoms of potential delayed complications were discussed with thepatient. Return to normal activities tomorrow. Written discharge instructions were provided to thepatient. - High fiber diet. - Continue present medications. - Await pathology results. - Repeat colonoscopy in 3 years for surveillance. Pantera Reyes M.D. Pantera Reyes M.D. 04/27/2024 3:31:21 PM . Number of Addenda: 0 Note Initiated On: 04/27/2024 10:11 AM Recognized by the [employer] [place] [employer] for promoting quality in endoscopy Pantera Reyes MD ENDOSCOPY PROCEDURES Final Resul t * (ABNORMAL) HM DEXA SCAN (04/15/2024 11:39 AM CDT) Scribed HM Deca Scan Abnormal Historical Provider HEALTH MAINTENANCE Edited Result - Final * Screening Mammogram Bilateral W Master (10/07/2023) Anatomical Region Laterality Modality Breast Bilateral Mammography Lizzette STEVE IMG MAMMO PROCEDURES Final Result from Last 3 Months or Most Recently Relevant to Health Maintenance Insurance MEDICARE ADVANTAGE UHC MEDICARE ADVANTAGE [facility] MEDICARE ADVANTAGE Care Teams Slot Editor Relationship Specialty Start Date End Date Lizzette Bunn PA [address] [facility] [address] [place] [address] PCP - General Internal Medicine 09/26/20 Tristan Henson MD [facility] [place] [address] Consulting Physician Rheumatology 03/29/24
--- OUTSIDE RECORDS SUMMARY | 2025-07-28 16:21 | XMS_ITS | Patient Health Record ---
Author Organization [facility] Address [address] [place] [address] Care Team Providers Care Loss Prevention And Safety Manager Name Role Phone Keira Gu MD Primary Care Provider Alan Clarke Unavailable [phone] Reason For Referral No Information Medications Medication SIG (Take, Route, Fr equency, Duration) Notes Start Date End Date Status predniSONE Active Methotrexate Active Pravastatin Sodium A ctive Folic Acid Active traMADol HCl Active Social History Tobacco Use: Social History Observation Description Date Details (start date - stop date) Former Smoker NA - NA Tobacco Use/Smoking Question Answer Notes Are you a former smoker How long has it been since you last smoked? 1-5 years Alcohol Screen (Audit-C) Question Answer Notes Did you have a drink contain ing alcohol in the past year? Yes How often did you have a dri nk containing alcohol in the past year? 2 to 3 times a week (3 points) How many drinks did you have on a typical day when you were drinking in the past year? 1 or 2 drinks (0 point) Points 3 Interpretation Positive Problems Problem Type SNOMED Code ICD Code Onset Dates Problem Status W/U Status Risk Notes Problem Lumbar radiculopathy (498317791) Radiculopathy, lumbar region (M54.16) Active confirmed Problem Lumbosacral radiculopathy (9055901) Radiculopathy, lumbosacral region (M54.17) Active confirmed Plan Of Treatment No Information Insurance Providers Payer Name Payer Address Payer Phone Subscriber Number Group Number Insured Name Patient Relationship to Insured Coverage Start Date Coverage End Date [employer] [address] [place] [id number] Dona Cardenas Self - patient is the insured Medical (General) History Medical History History ICD Code rheumatoid arthritis reflux esphagitis irritable bowel syndrome chronic bronchitis mononucleosis depression anxiety Surgical History Surgery Date(Month/Year) Carcinoma 1973 Nodule in Neck 2013
--- OUTSIDE RECORDS SUMMARY | 2025-07-28 16:21 | XMS_ITS ---
Author Organization [facility] Address [address] [place] [address] Care Team Providers Care User Support Analyst Supervisor Name Role Phone Lizzette Bunn Primary Care Provider [phone] Tristan Henson MD Unavailable [phone] Active Problems Problem Noted Date Diagnosed Date [...] 10/23/2024 Assessment & Plan (12/20/2024 1:51 PM DIRECTOR CLINICAL PHARMACOLOGY): Has had mild chronic anemia with slight macrocytosis. Iron panel normal, b12 improved with supplementation. PCP referred to hematology for further eval. Discussed that it is possible that she has anemia of chronic disease due to RA (or CKD), but good to r/o other etiologies. Assessment & Plan (10/23/2024 10:22 PM DIRECTOR CLINICAL PHARMACOLOGY): Persistent abnormal CBC. persistent Low RBCs, H/H [...] maintain. Assessment & Plan (10/12/2024 9:03 AM DIRECTOR CLINICAL PHARMACOLOGY): Weight/BMI is in healthy range. 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 Uses biotene products and eye drops already. 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 Uses biotene products and eye drops already. Using cevimeline qhs only with good relief Assessment & Plan (06/06/2024 5:54 PM CDT): Continue per [facility]. 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 Uses biotene products and eye drops already. 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 Uses biotene products and eye drops already. 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 Uses biotene products and eye drops already. 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 Uses biotene products and [...] -19) 01/05/2021 Overview (11/25/2023): Positive 12/19/2020 and [id number] Assessment & Plan (01/05/2021 11:13 AM DIRECTOR CLINICAL PHARMACOLOGY): No longer in quarantine. Monitor residual sxs. [...] diabetes. 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 Stressed [...] diabetes. Assessment & Plan (01/17/2021 9:06 PM DIRECTOR CLINICAL PHARMACOLOGY): Pre-diabetes/hyperglycemia is a precursor to Dm. Stressed [...] diabetes. Assessment & Plan (01/03/2020 1:23 PM DIRECTOR CLINICAL PHARMACOLOGY): Pre-diabetes/hyperglycemia is a precursor to Dm. Stressed [...] labs. Assessment & Plan (10/23/2024 10:16 PM DIRECTOR CLINICAL PHARMACOLOGY): Avoid nephrotoxic drugs including NSAIDs. Monitor labs. Will monitor and may consider an SG LT for renal protection if continues to say at the same rate Assessment & Plan (06/06/2024 5:49 PM CDT): Avoid nephrotoxic drugs including NSAIDs. Monitor labs. Assessment & Plan (11/25/2023 10:36 AM DIRECTOR CLINICAL PHARMACOLOGY): Avoid nephrotoxic drugs including NSAIDs. Monitor labs. [facility] continues to monitor closely. Will defer [...] Tylenol. Assessment & Plan (01/17/2021 9:05 PM DIRECTOR CLINICAL PHARMACOLOGY): Avoid nephrotoxic drugs including NSAIDs. Monitor labs. Assessment & Plan (07/15/2020 8:12 PM CDT): Avoid nephrotoxic drugs including NSAIDs. Monitor labs. Assessment & Plan (01/03/2020 1:21 PM DIRECTOR CLINICAL PHARMACOLOGY): Avoid nephrotoxic drugs including NSAIDs. Monitor labs. Assessment & Plan (08/30/2019 7:57 PM CDT): /This is a significant, separately identifiable problem that was evaluated and managed on the same day as the wellness exam Avoid nephrotoxic drugs including NSAIDs. Monitor labs. Vitamin D deficiency 07/29/2019 Assessment & Plan (02/20/2025 7:24 PM CDT): Supplement Assessment & Plan (10/23/2024 10:16 PM DIRECTOR CLINICAL PHARMACOLOGY): Supplement Assessment & Plan (06/06/2024 5:50 PM CDT): Supplement Assessment & Plan (11/25/2023 10:37 AM DIRECTOR CLINICAL PHARMACOLOGY): Supplement Assessment & Plan (11/15/2023 9:53 PM DIRECTOR CLINICAL PHARMACOLOGY): Supplement Assessment & Plan (06/23/2023 9:00 AM CDT): Continue vitamin-D supplementation Assessment & Plan (08/22/2022 7:41 AM CDT): Supplement Assessment & Plan (02/14/2022 9:00 AM CDT): Supplement Assessment & Plan (08/15/2021 11:30 PM CDT): supplement Assessment & Plan (01/17/2021 9:05 PM DIRECTOR CLINICAL PHARMACOLOGY): supplement Assessment & Plan (07/15/2020 8:12 PM [...] Plan (02/20/2025 7:24 PM CDT): Managed by [facility]. Currently on Actonel drug holiday as T-scores were stable. Continue calcium vitamin-D and exercise Assessment & Plan (12/20/2024 1:23 PM DIRECTOR CLINICAL PHARMACOLOGY): High FRAX from bmd in 04/04. Started [...] yrs Assessment & Plan (09/20/2024 5:06 PM DIRECTOR CLINICAL PHARMACOLOGY): High FRAX from bmd in 04/04. Started [...] holiday. Assessment & Plan (11/25/2023 10:37 AM DIRECTOR CLINICAL PHARMACOLOGY): Continue Actonel, vitamin-D exercise and calcium. DEXA will be due again this year. Last ordered by Rheumatology Assessment & Plan (11/15/2023 9:53 PM DIRECTOR CLINICAL PHARMACOLOGY): Continue Actonel and vitamin-D supplementation Assessment & Plan (09/29/2023 2:51 PM DIRECTOR CLINICAL PHARMACOLOGY): High FRAX from bmd in 04/04. on [...] Plan (06/23/2023 9:00 AM CDT): Continue per [facility]. She is on Actonel calcium and [...] surgery. Assessment & Plan (12/30/2022 5:12 PM DIRECTOR CLINICAL PHARMACOLOGY): High FRAX from bmd in 04/04. on [...] surgery. Assessment & Plan (12/22/2022 8:51 PM DIRECTOR CLINICAL PHARMACOLOGY): Managed by Rheumatology. Currently on Actonel. Continue calcium vitamin-D and exercise. Assessment & Plan (09/30/2022 1:31 PM DIRECTOR CLINICAL PHARMACOLOGY): High FRAX from bmd in 04/04. on [...] vitamin-D Assessment & Plan (12/31/2021 2:43 PM DIRECTOR CLINICAL PHARMACOLOGY): High FRAX from bmd in 04/04. on [...] 12/10 Assessment & Plan (10/01/2021 4:34 PM DIRECTOR CLINICAL PHARMACOLOGY): High FRAX from bmd in 04/04. on [...] today Assessment & Plan (01/17/2021 9:06 PM DIRECTOR CLINICAL PHARMACOLOGY): DXA 2018 On Actonel Calcium and vitamin D Assessment & Plan (01/09/2021 1:15 PM DIRECTOR CLINICAL PHARMACOLOGY): High FRAX from bmd in 04/04. on actonel 150mg monthly since then. Will repeat BMD in 04/06 Assessment & Plan (10/08/2020 3:49 PM DIRECTOR CLINICAL PHARMACOLOGY): High FRAX from bmd in 04/04. on [...] today Assessment & Plan (01/11/2020 10:09 AM DIRECTOR CLINICAL PHARMACOLOGY): High FRAX from bmd in 04/04. Started on actonel 150mg monthly Assessment & Plan (10/19/2019 8:49 AM DIRECTOR CLINICAL PHARMACOLOGY): High FRAX from bmd in 04/04. Started on actonel 150mg monthly Assessment & Plan (08/17/2019 10:18 AM CDT): High FRAX from bmd in 04/04. Started on actonel 150mg monthly, especially while on steroids. Assessment & Plan (05/11/2019 12:22 PM CDT): High FRAX from bmd in 04/04. Started on actonel 150mg monthly, especially while on steroids. Anxiety 01/20/2019 Assessment & Plan (11/25/2023 10:37 AM DIRECTOR CLINICAL PHARMACOLOGY): Stable with Cymbalta and Wellbutrin Assessment & Plan (06/23/2023 9:00 AM CDT): Stable with Cymbalta 60 and Wellbutrin XL 150 Assessment & Plan (09/30/2022 3:36 PM DIRECTOR CLINICAL PHARMACOLOGY): Worse lately. pcp added another anti-depressant (wellbutrin) to her previous regimen of cymbalta. I also encouraged her to consider seeing a counselor Assessment & Plan (08/22/2022 7:41 AM CDT): Stable with Cymbalta Assessment & Plan (02/14/2022 8:59 AM CDT): Stable with the Cymbalta. Refills sent to pharmacy Assessment & Plan (01/17/2021 9:06 PM DIRECTOR CLINICAL PHARMACOLOGY): Stable with cymbalta Assessment & Plan (07/15/2020 8:14 PM CDT): Continue cymbalta Assessment & Plan (08/30/2019 9:42 AM CDT): Much improved with the Cymbalta. Will continue with same dose and monitor closely. If sxs increase will reassess. Sciatica of right side 10/02/2018 Assessment & Plan (01/01/2019 9:28 AM DIRECTOR CLINICAL PHARMACOLOGY): Improved with shot from pain mgmt Assessment & Plan (10/02/2018 11:52 AM DIRECTOR CLINICAL PHARMACOLOGY): Improved with shot from pain mgmt Mixed [...] Increase exercise. Monitor labs as needed. Continue Crestfl 20 Assessment & Plan (06/06/2024 5:50 PM CDT): Encouraged patient to follow low fat/low chol diet like the Mediterranean diet. Increase good fats in the diet. Increase exercise. Monitor labs as needed. Continue Crestor 20 Assessment & Plan (11/25/2023 10:37 AM DIRECTOR CLINICAL PHARMACOLOGY): Encouraged patient to follow low fat/low chol diet like the Mediterranean diet. Increase good fats in the diet. Increase exercise. Monitor labs as needed. Continue Crestfl 20 Assessment & Plan (11/15/2023 9:53 PM DIRECTOR CLINICAL PHARMACOLOGY): Encouraged patient to follow low fat/low chol diet like the Mediterranean diet. Increase good fats in the diet. Increase exercise. Monitor labs as needed. Continue Crestfl 20 Assessment & Plan (06/23/2023 9:00 AM CDT): Encouraged patient to follow low fat/low chol diet like the Mediterranean diet. Increase good fats in the diet. Increase exercise. Monitor labs as needed. Assessment & Plan (12/22/2022 8:50 PM DIRECTOR CLINICAL PHARMACOLOGY): Encouraged patient to follow low fat/low chol [...] crestor Assessment & Plan (01/17/2021 9:06 PM DIRECTOR CLINICAL PHARMACOLOGY): Encouraged patient to follow fat/low chol diet like the Mediterranean diet. Increase good fats in the diet. Increase exercise. Monitor labs as needed. Continue crestor Assessment & Plan (07/15/2020 8:14 PM CDT): Encouraged patient to continue low fat/low chol diet. Continue exercise. Increase good fats in the diet. Monitor labs as needed. Continue statin Assessment & Plan (01/03/2020 1:21 PM DIRECTOR CLINICAL PHARMACOLOGY): Encouraged patient to continue low fat/low chol diet. Continue exercise. Increase good fats in the diet. Monitor labs as needed. Assessment & Plan (08/30/2019 9:42 AM CDT): Encouraged patient to continue low fat/low chol diet. Continue exercise. Increase good fats in the diet. Monitor labs as needed. Continue crestor Assessment & Plan (01/01/2019 11:38 AM DIRECTOR CLINICAL PHARMACOLOGY): Add lipid panel to labs for pcp. Is on crestor. Gastroesophageal reflux disease 09/09/2018 Assessment & Plan (02/20/2025 7:24 PM CDT): Continue PPI p.r.n. Assessment & Plan (06/06/2024 5:49 PM CDT): Continue omeprazole 40 mg daily as needed Assessment & Plan (11/25/2023 10:37 AM DIRECTOR CLINICAL PHARMACOLOGY): Continue PPI p.r.n. Assessment & Plan (06/23/2023 9:00 AM CDT): Continue PPI p.r.n. Assessment & Plan (12/22/2022 8:51 PM DIRECTOR CLINICAL PHARMACOLOGY): Continue PPI p.r.n. Assessment & Plan (08/22/2022 7:41 AM CDT): Continue PPI Assessment & Plan (02/14/2022 8:59 AM CDT): Continue PPI Assessment & Plan (08/15/2021 11:31 PM CDT): Continue omeprazole Assessment & Plan (01/17/2021 9:05 PM DIRECTOR CLINICAL PHARMACOLOGY): Continue PPI Assessment & Plan (07/15/2020 8:12 PM CDT): Continue PPI Assessment & Plan (01/03/2020 1:21 PM DIRECTOR CLINICAL PHARMACOLOGY): Stable with PPI Assessment & Plan (08/30/2019 [...] 2014 Quantiferon gold negative 03/05 utd flu, [id number], [id number], tdap, zostavax. Had first dose of shingrix in 10/06 Had COVID vaccine. Had new booster Assessment & Plan (12/20/2024 1:23 PM DIRECTOR CLINICAL PHARMACOLOGY): cxr 8/18 - mild hyperinflation otherwise normal. Repeated cxr 05/05- mild hyperinflation Monitor routine labs Neg hepatitis panel 2014 Quantiferon gold negative 03/05 utd flu, [id number], ptlizliya15, tdap, zostavax. Had first dose of shingrix in 10/06 Had COVID vaccine. Had new booster Assessment & Plan (09/20/2024 1:01 PM DIRECTOR CLINICAL PHARMACOLOGY): cxr 8/18 - mild hyperinflation otherwise normal. Repeated cxr 05/05- mild hyperinflation Monitor routine labs Neg hepatitis panel 2014 Quantiferon gold negative 4/ utd flu, [id number], [id number], tdap, zostavax. Had first dose of shingrix in 10/06 Had COVID vaccine. Had new booster Assessment & Plan (06/21/2024 5:48 PM CDT): cxr 8/18 - mild hyperinflation otherwise normal. Repeated cxr 05/05- mild hyperinflation Monitor routine labs Neg hepatitis panel 2014 Quantiferon gold negative 4/19 utd flu, [id number], [id number], tdap, zostavax. Had first dose of shingrix in 10/06 Had COVID vaccine. Had new booster Assessment & Plan (03/29/2024 5:09 PM CDT): cxr 8/18 - mild hyperinflation otherwise normal. Repeated cxr 6- mild hyperinflation Monitor routine labs Neg hepatitis panel 2014 Quantiferon gold negative 4/19 utd flu, qyakgkg57, oerbkjujj89, tdap, zostavax. Had first dose of shingrix in 10/06 Had COVID vaccine. Had new booster Assessment & Plan (09/29/2023 2:50 PM DIRECTOR CLINICAL PHARMACOLOGY): cxr 8/18 - mild hyperinflation otherwise normal. Repeated cxr 6- mild hyperinflation Monitor routine labs Neg hepatitis panel 2014 Quantiferon gold negative 4/19 utd flu, oveigyv09, tlsjjozzb52, tdap, zostavax. Had first dose of shingrix in 10/06 Had COVID vaccine. Had new booster Assessment & Plan (03/31/2023 5:29 PM CDT): cxr 8/18 - mild hyperinflation otherwise normal. Repeated cxr 6- mild hyperinflation Monitor routine labs Neg hepatitis panel 2014 Quantiferon gold negative 4/19 utd flu, aymjcfu85, suznyzqlv14, tdap, zostavax. Had first dose of shingrix in 10/06 Had COVID vaccine. Had new booster Assessment & Plan (12/30/2022 12:03 PM DIRECTOR CLINICAL PHARMACOLOGY): cxr 8/18 - mild hyperinflation otherwise normal. Repeated cxr 6- mild hyperinflation Monitor routine labs Neg hepatitis panel 2014 Quantiferon gold negative 4/ utd flu, azitswf54, [id number], tdap, zostavax. Had first dose of shingrix in 10/06 Had COVID vaccine. Had new booster Assessment & Plan (09/30/2022 3:35 PM DIRECTOR CLINICAL PHARMACOLOGY): cxr 8/18 - mild hyperinflation otherwise normal. Repeated cxr 05/05- mild hyperinflation Monitor routine labs Neg hepatitis panel 2014 Quantiferon gold negative 4/19 utd flu, [id number], sbwbqupvo30, tdap, zostavax. Had first dose of shingrix in 10/06 Had COVID vaccine. Had new booster Assessment & Plan (07/01/2022 1:32 PM CDT): cxr 8/18 - mild hyperinflation otherwise normal. Repeated cxr 05/05- mild hyperinflation Monitor routine labs Neg hepatitis panel 2014 Quantiferon gold negative 4/ utd flu, [id number], [id number], tdap, zostavax. Had first dose of shingrix in 10/06 Had COVID vaccine. Had 3rd dose in 12/08 Assessment & Plan (04/01/2022 1:09 PM CDT): cxr 8/18 - mild hyperinflation otherwise normal. Repeated cxr 6- mild hyperinflation Monitor routine labs Neg hepatitis panel 2014 Quantiferon gold negative 4/19 utd flu, emxjgtg86, lydpcichp25, tdap, zostavax. Had first dose of shingrix in 10/06 Had COVID vaccine. Had 3rd dose in 12/08 Assessment & Plan (03/04/2022 1:51 PM CDT): cxr 8/18 - mild hyperinflation otherwise normal. Repeated cxr 05/05- mild hyperinflation Monitor routine labs Neg hepatitis panel 2014 Quantiferon gold negative 4 utd flu, fzzvill59, xabzgowdw15, tdap, zostavax. Had first dose of shingrix in 10/06 Had COVID vaccine. Had 3rd dose in 12/08 Assessment & Plan (02/01/2022 1:00 PM CDT): cxr 8/18 - mild hyperinflation otherwise normal. Repeated cxr 05/05- mild hyperinflation Monitor routine labs Neg hepatitis panel 2014 Quantiferon gold negative 03/05 utd flu, ailqmoe50, obcasgfet96, tdap, zostavax. Had first dose of shingrix in 10/06 Had COVID vaccine. Had 3rd dose in 12/08 Assessment & Plan (12/31/2021 2:44 PM DIRECTOR CLINICAL PHARMACOLOGY): cxr 8/18 - mild hyperinflation otherwise normal. Repeated cxr 05/05- mild hyperinflation Monitor routine labs Neg hepatitis panel 2014 Quantiferon gold negative 4 utd flu, uddheon51, twptzxmyi24, tdap, zostavax. Had first dose of shingrix in 10/06 Had COVID vaccine. Had 3rd dose in 12/08 Assessment & Plan (10/01/2021 11:15 AM DIRECTOR CLINICAL PHARMACOLOGY): cxr 8/18 - mild hyperinflation otherwise normal. Repeated cxr 05/05- mild hyperinflation Monitor routine labs Neg hepatitis panel 2014 Quantiferon gold negative 4 utd flu, napddeu46, jaqzpezsq97, tdap, zostavax. Had first dose of shingrix in 10/06 Had COVID vaccine. Eligible for booster Assessment & Plan (07/06/2021 2:06 PM CDT): cxr 8/18 - mild hyperinflation otherwise normal. Repeated cxr 05/05- mild hyperinflation Monitor routine labs Neg hepatitis panel 2014 Quantiferon gold negative 4/ utd flu, ukbzhor71, dklueljqi22, tdap, zostavax. Had first dose of shingrix in 10/06 Had COVID vaccine. Eligible for booster Assessment & Plan (04/05/2021 4:22 PM CDT): cxr 8/18 - mild hyperinflation otherwise normal. Repeated cxr 05/05- mild hyperinflation Monitor routine labs Neg hepatitis panel 2014 Quantiferon gold negative 03/05 utd flu, bjonmzr67, exyqgtvep24, tdap, zostavax. Had first dose of shingrix in 10/06 Had COVID vaccine Assessment & Plan (01/09/2021 1:14 PM DIRECTOR CLINICAL PHARMACOLOGY): cxr 8/18 - mild hyperinflation otherwise normal. Repeated cxr 05/05- mild hyperinflation Monitor routine labs Neg hepatitis panel 2014 Quantiferon gold negative 03/05 utd flu, [id number], , tdap, zostavax. Had first dose of shingrix in 10/06 Assessment & Plan (10/09/2020 1:02 PM DIRECTOR CLINICAL PHARMACOLOGY): cxr 8/18 - mild hyperinflation otherwise normal. Repeated cxr 6- mild hyperinflation Monitor routine labs Neg hepatitis panel 2014 Quantiferon gold negative 03/05 utd flu, clraxox73, cfzhzxbfa15, tdap, zostavax. Had first dose of shingrix in 10/06 Assessment & Plan (07/10/2020 9:55 AM CDT): cxr 8/18 - mild hyperinflation otherwise normal. Repeated cxr 6- mild hyperinflation Monitor routine labs Neg hepatitis panel 2014 Quantiferon gold negative 4/19 utd flu, [id number], nmdqqveok48, tdap, zostavax. Recommend shingrix Assessment & Plan (04/11/2020 10:58 AM CDT): cxr 8/18 - mild hyperinflation otherwise normal. Repeated cxr 6/19- mild hyperinflation Monitor routine labs Neg hepatitis panel 2014 Quantiferon gold negative 03/05 utd flu, , vyiuesbfx25, tdap, zostavax. Recommend shingrix Assessment & Plan (01/11/2020 10:09 AM DIRECTOR CLINICAL PHARMACOLOGY): cxr 8/18 - mild hyperinflation otherwise normal. Repeated cxr 6/- mild hyperinflation Monitor routine labs Neg hepatitis panel 2014 Quantiferon gold negative 03/05 utd flu, nysvfka19, czyyqwili71, tdap, zostavax. Recommend shingrix Assessment & Plan (10/19/2019 8:50 AM DIRECTOR CLINICAL PHARMACOLOGY): cxr 8/18 - mild hyperinflation otherwise normal. Repeated cxr 6/- mild hyperinflation Monitor routine labs Neg hepatitis panel 2014 Quantiferon gold negative 03/05 utd flu, nybnvte23, [id number], tdap, zostavax. Recommend shingrix Assessment & Plan [...] today. Assessment & Plan (01/01/2019 11:38 AM DIRECTOR CLINICAL PHARMACOLOGY): cxr 8/18 - mild hyperinflation otherwise normal Monitor routine labs Assessment & Plan (10/02/2018 11:51 AM DIRECTOR CLINICAL PHARMACOLOGY): cxr 8/18 - mild hyperinflation otherwise normal Assessment & Plan (07/03/2018 9:48 AM CDT): cxr neg 8/17. Recheck today Assessment & Plan (01/01/2018 5:32 PM DIRECTOR CLINICAL PHARMACOLOGY): cxr neg 8/17. Assessment & Plan (09/26/2017 9:24 AM DIRECTOR CLINICAL PHARMACOLOGY): cxr neg 8/17. Assessment & Plan (06/27/2017 9:52 AM CDT): cxr neg 8/17. Rheumatoid arthritis of [facility] without rheumatoid factor 05/15/2017 Overview [...] Plan (02/20/2025 7:23 PM CDT): Continue per [facility]. Currently on Rinvoq. Assessment & Plan (12/20/2024 1:49 PM DIRECTOR CLINICAL PHARMACOLOGY): cdai = 0, low Stopped Xeljanz in 224 due to continued abnormal creatinine (1.3 to [...] months. Assessment & Plan (10/23/2024 10:15 PM DIRECTOR CLINICAL PHARMACOLOGY): Managed by [facility]. Assessment & Plan (09/20/2024 5:13 PM DIRECTOR CLINICAL PHARMACOLOGY): cdai = 0, low Stopped Xeljanz in [...] Plan (06/06/2024 5:54 PM CDT): Continue per [facility]. They manage her rheumatoid arthritis and [...] months Assessment & Plan (11/25/2023 10:36 AM DIRECTOR CLINICAL PHARMACOLOGY): Continue per [facility]. Currently on Xeljaz and Evoxac Assessment & Plan (11/15/2023 9:53 PM DIRECTOR CLINICAL PHARMACOLOGY): Continue with [facility] for management of rheumatoid arthritis and sicca Assessment & Plan (09/29/2023 2:50 PM DIRECTOR CLINICAL PHARMACOLOGY): cdai = 4, low On xeljanz since [...] Plan (06/23/2023 8:59 AM CDT): Continue per [facility] Assessment & Plan (03/31/2023 5:28 PM [...] adjustment. labs today. Discussed OV and labs [id number]. She is seeing PCP in June and [...] meantime. Assessment & Plan (12/30/2022 5:08 PM DIRECTOR CLINICAL PHARMACOLOGY): cdai = 0, low/remisison On xeljanz since [...] needed Assessment & Plan (12/22/2022 8:52 PM DIRECTOR CLINICAL PHARMACOLOGY): Continue management through Rheumatology. Assessment & Plan (09/30/2022 3:35 PM DIRECTOR CLINICAL PHARMACOLOGY): cdai = 4, low On xeljanz since [...] 7:42 AM CDT): Continue per Rheumatology at [facility] in [place] Assessment & Plan (07/01/2022 2:54 PM CDT): [...] Plan (02/14/2022 9:01 AM CDT): Continue per [facility]. Assessment & Plan (02/01/2022 2:34 PM [...] glucose, cataracts, glaucoma, AVN, and osteoporosis with usp use. Otherwise plan to continue Xeljanz 5 mg daily. Labs current. Follow up in 4 weeks to reassess or sooner as needed. Assessment & Plan (12/31/2021 2:41 PM DIRECTOR CLINICAL PHARMACOLOGY): Images from the original note were not included. cdai = 0, remission On xeljanz since 11/04. Lowered dose to 5mg daily in 10/07 based on slightly worsened creatinine. Doing very well. Off mtx since doing well on xeljanz monotherapy. Off ssz due to GI upset. Christiana that leflunomide did not help. Stopped humira due to infections. Inadequate response to Enbrel. R hand u/s in 01/05: Will continue current regimen. Labs today. F/u 3 months Assessment & Plan (10/01/2021 4:33 PM DIRECTOR CLINICAL PHARMACOLOGY): Images from the original note were not included. cdai = 0, remission On xeljanz since 11/04. Doing very well. Off mtx since doing well on xeljanz monotherapy. Off ssz due to GI upset. Christiana that leflunomide did not help. Stopped humira [...] monotherapy. Off ssz due to GI upset. Christiana that leflunomide did not help. Stopped humira [...] mtx. Off ssz due to GI upset. Christiana that leflunomide did not help. Stopped humira due to infections. Inadequate response to Enbrel. R hand u/s in 01/05: Labs today. F/u 3 months or sooner if needed Assessment & Plan (01/17/2021 9:06 PM DIRECTOR CLINICAL PHARMACOLOGY): Continue per [facility] Assessment & Plan (01/09/2021 1:14 PM DIRECTOR CLINICAL PHARMACOLOGY): Images from the original note were not [...] monotherapy. Off ssz due to GI upset. Christiana that leflunomide did not help. Stopped humira due to infections. Inadequate response to Enbrel. R hand u/s in 01/05: Labs in about 4-6 weeks, after restarting xeljanz. F/u 3 months or sooner if worse Assessment & Plan (01/05/2021 11:12 AM DIRECTOR CLINICAL PHARMACOLOGY): Continue per Rheum. Has Xeljanz on hold until finishes the antibiotics. Assessment & Plan (10/09/2020 1:01 PM DIRECTOR CLINICAL PHARMACOLOGY): Images from the original note were not included. cdai = 15, low/moderate On xeljanz since 11/04. Since she was doing so well we d/c the mtx and she remains on xeljanz monotherapy. She has noticed a mild increase in pain and stiffness since the last visit. Off ssz due to GI upset. Christiana that leflunomide did not help. Stopped humira [...] monotherapy. Off ssz due to GI upset. Christiana that leflunomide did not help. Stopped humira [...] acid. Off ssz due to GI upset. Christiana that leflunomide did not help. Stopped humira due to infections. Inadequate response to Enbrel. R hand u/s in 01/05: Since she has low cdai will try stopping mtx altogether and contiue xeljanz as monotherapy. Labs today. Advised shingrix again. F/u 3 months. COVID-19 discussed. Assessment & Plan (01/11/2020 10:32 AM DIRECTOR CLINICAL PHARMACOLOGY): Images from the original note were not included. cdai = 5, low On xeljanz for about 3 months and feels great. On mtx 20mg weekly. Continue folic acid. Off ssz due to GI upset. Christiana that leflunomide did not help. Stopped humira [...] again. Assessment & Plan (10/19/2019 5:23 PM DIRECTOR CLINICAL PHARMACOLOGY): Images from the original note were not included. cdai = 19.5 On Enbrel for almost 6 months. On mtx 20mg weekly. Off prednisone. Continue folic acid. Off ssz due to GI upset. Christiana that leflunomide did not help. Stopped humira [...] acid. Off ssz due to GI upset. Christiana that leflunomide did not help. Stopped humira [...] acid. Off ssz due to GI upset. Christiana that leflunomide did not help. Stopped humira [...] today. Assessment & Plan (01/01/2019 11:37 AM DIRECTOR CLINICAL PHARMACOLOGY): Appears to have low activity on exam [...] worse. Assessment & Plan (10/02/2018 11:52 AM DIRECTOR CLINICAL PHARMACOLOGY): cdai = 4 Doing better now on [...] needed. Assessment & Plan (01/01/2018 1:19 PM DIRECTOR CLINICAL PHARMACOLOGY): Low disease activity with mtx 20mg weekly. [...] needed. Assessment & Plan (09/26/2017 9:32 AM DIRECTOR CLINICAL PHARMACOLOGY): Low disease activity with mtx 20mg weekly. [...] Malignant neoplastic disease 06/27/2015 Overview (02/21/2017): Cancer Current Treatment and Therapy Plans No current plan information found. Past Treatment and Therapy Plans No past plan information found. Lifetime Dose Tracking * Chemical Lifetime Dose Automatic Entry Manual Entr y DLP 198 mGycm 198 mGycm 0 mGycm Resolved Problems Problem Noted Date Diagnosed Date Resolved Date Iron deficiency anemia 07/17/202410/23 Assessment & Plan (07/17/2024 9:29 PM CDT): Patient's labs showed anemia. Follow-up with iron panel and ferritin. May use yfdi-kzy-dgilrol iron and vitamin-C to try to rebuild [...] 06/06/2024 Assessment & Plan (11/25/2023 10:38 AM DIRECTOR CLINICAL PHARMACOLOGY): This is a significant, separately identifiable problem [...] 11/25/2023 Assessment & Plan (11/25/2023 10:38 AM DIRECTOR CLINICAL PHARMACOLOGY): Patient with positive depression screening. She is currently on Cymbalta and Wellbutrin and feels like this definitely is helping her symptoms. Medicare annual wellness visit, subsequent 11/25/2023 06/06/2024 Assessment & Plan (11/25/2023 10:38 AM DIRECTOR CLINICAL PHARMACOLOGY): Encouraged healthy lifestyle, good nutrition and exercise. Encouraged Calcium and Vitamin D and weight bearing exercise for bone health. Reviewed immunizations. Reviewed age appropirate screenings. Medicare Wellness Documentation is completed within the chart Diarrhea 11/15/2023 06/06/2024 Assessment & Plan (11/15/2023 9:53 PM DIRECTOR CLINICAL PHARMACOLOGY): Patient is complaining of daily diarrhea/watery stool [...] 24 Assessment & Plan (11/25/2023 10:37 AM DIRECTOR CLINICAL PHARMACOLOGY): Weight/BMI is in healthy range. Continue healthy lifestyle to maintain. Assessment & Plan (11/15/2023 9:54 PM DIRECTOR CLINICAL PHARMACOLOGY): Weight/BMI is in healthy range. Continue healthy [...] onset of sxs. Check COVID/FLU test thru [facility]. Appt set for 12:45p I will send [...] a longstanding issue. Recommend seeing ENT and/or security systems manager if she wishes to pursue more investigation Skin lesions 04/28/2022 06/06/2024 Assessment & Plan (04/28/2022 12:07 AM CDT): Patient has multiple skin lesions. She would like them evaluated by the manager transfer. Provided multiple names of manager transfer in the area for her to call if she wants to be seen as soon as possible. Will await her call to make the referral. BMI 26.0-26.9,adult 02/14/2022 06/23/20 23 Assessment & Plan (12/17/2022 9:27 AM DIRECTOR CLINICAL PHARMACOLOGY): Weight/BMI is in healthy range. Continue healthy [...] provided Assessment & Plan (12/22/2022 8:52 PM DIRECTOR CLINICAL PHARMACOLOGY): Patient unable to do mammogram until her [...] her to follow-up with the ENT at [facility] that place them for a final evaluation. If she has any signs of infection increased pain redness swelling or fever she is to follow up immediately. Assessment & Plan (08/11/2021 6:39 PM CDT): Healing well. Complete antibiotics Follow with ENT/Plastics at [facility] as instructed. BMI 25.0-25.9,adult 07/31/2021 10/12/20 24 Assessment & Plan (07/17/2024 9:29 PM CDT): Weight/BMI is in healthy range. Continue healthy lifestyle to maintain. Assessment & Plan (06/06/2024 5:51 PM CDT): Weight/BMI is in healthy range. Continue healthy lifestyle to maintain. Assessment & Plan (07/31/2021 11:43 AM CDT): Weight/BMI is in healthy range. Continue healthy lifestyle to maintain. BMI 26.0-26.9,adult 01/18/2021 07/31/20 Assessment & Plan (01/18/2021 7:47 AM DIRECTOR CLINICAL PHARMACOLOGY): Weight/BMI is in healthy range. Continue healthy lifestyle to maintain. Fatigue 01/18/2021 06/06/2024 Assessment & Plan (09/15/2022 5:25 PM CDT): Probably multifactorial. Check labs and followup to re-evaluate Assessment & Plan (02/14/2022 9:01 AM CDT): Probably multifactorial. Check labs and followup to re-evaluate Assessment & Plan (01/18/2021 8:35 AM DIRECTOR CLINICAL PHARMACOLOGY): Probably multifactorial. Check labs and followup to re-evaluate Annual physical exam 01/17/2021 023 Assessment & Plan (12/22/2022 8:52 PM DIRECTOR CLINICAL PHARMACOLOGY): Encouraged healthy lifestyle, good nutrition and exercise. Encouraged Calcium and Vitamin D and weight bearing exercise for bone health. Reviewed immunizations Reviewed age appropirate screenings. Assessment & Plan (02/14/2022 9:00 AM CDT): Encouraged healthy lifestyle, good nutrition and exercise. Encouraged Calcium and Vitamin D and weight bearing exercise for bone health. Reviewed immunizations Reviewed age appropirate screenings. Assessment & Plan (01/18/2021 8:33 AM DIRECTOR CLINICAL PHARMACOLOGY): Encouraged healthy lifestyle, good nutrition and exercise. Encouraged Calcium and Vitamin D and weight bearing exercise for bone health. Reviewed immunizations Reviewed age appropirate screenings. Acute frontal sinusitis 01/05/202107/19 Assessment & Plan (01/18/2021 8:32 AM DIRECTOR CLINICAL PHARMACOLOGY): Improving with antibiotic. Continue antihistamine (Claritin OR Zyrtec), Mucinex 12hour and Steroid nasal spray (Flonase). Push fluids. Assessment & Plan (01/05/2021 11:12 AM DIRECTOR CLINICAL PHARMACOLOGY): Start antibiotic, antihistamine (Claritin OR Zyrtec), Mucinex 12hour and Steroid nasal spray (Flonase). Push fluids. Rest. Supportive care. If sxs worsen or don\'t improve, pt is to followup in the office. Depression 10/09/2020 01/17/2021 Assessment & Plan (10/09/2020 1:04 PM DIRECTOR CLINICAL PHARMACOLOGY): Increased fatigue, depressed mood, and decreased motivation recently. Pt is not looking forward to the holidays. Missing her son who 5 yrs ago. Encouraged to consider going back to counseling. Discuss with pcp possible med changes. Also try to incorporate daily exercise which can help with mood and fatigue. Acute recurrent pansinusitis 10/03/2020 01/05/2021 Assessment & Plan (12/19/2020 3:46 PM DIRECTOR CLINICAL PHARMACOLOGY): Will send patient to [place] for Covid-19 testing. The patient was advised [...] time. Assessment & Plan (10/03/2020 2:26 PM DIRECTOR CLINICAL PHARMACOLOGY): Advised increased fluids, rest. Will continue with [...] 01/05/2021 Assessment & Plan (12/19/2020 3:46 PM DIRECTOR CLINICAL PHARMACOLOGY): Will send patient to [place] for Covid-19 testing. The patient was advised [...] time. Assessment & Plan (09/26/2020 12:12 PM DIRECTOR CLINICAL PHARMACOLOGY): Patient to presume positive COVID until results are available and self isolate for 14 days from the onset of sxs. Will order testing thru [facility] in [place]. Treat sxs with otc products. Has albuterol [...] water often. If needed, use a hand glass decorator that contains at least 60% alcohol. Clean and disinfect frequently touched surfaces such as tables, doorknobs, countertops, etc daily. Avoid touching your eyes, nose, and mouth when possible. Assessment & Plan (01/11/2020 5:03 PM DIRECTOR CLINICAL PHARMACOLOGY): Pt had questions about mtx and pulm [...] 01/03/202008/15 Assessment & Plan (01/17/2021 9:07 PM DIRECTOR CLINICAL PHARMACOLOGY): Has had multiple referrals to Dr. Phillips but she has cancelled due to fear of COVID. Encouraged. Assessment & Plan (07/15/2020 8:16 PM CDT): Will need to reschedule due to COVID. Already in contact with Dr. Phillips Chronic low back pain 01/03/20202023 Assessment & Plan (01/18/2021 8:35 AM DIRECTOR CLINICAL PHARMACOLOGY): No injury. Check xray due to history osteopenia. Offered PT. She declines. Encouraged stretching/activity and topical (votaren gel/lidocaine patches) Other fatigue 01/03/2020 07/10/2020 Assessment & Plan (01/03/2020 1:23 PM DIRECTOR CLINICAL PHARMACOLOGY): Probably multifactorial. Check labs and followup to re-evaluate Dermatitis 10/19/2019 06/06/2024 Assessment & Plan (07/15/2020 8:17 PM CDT): Triamcinolone prn Assessment & Plan (07/10/2020 10:04 AM CDT): Scattered rashes primarily to L lower leg which could be eczema, seed cone picker's nodules, or precancerous lesion due to scaliness. Due to distribution I do not think this represents a drug reaction. Recommend derm opinion. Assessment & Plan (10/19/2019 5:25 PM DIRECTOR CLINICAL PHARMACOLOGY): Scattered rashes primarily to L lower leg [...] maintain. Assessment & Plan (01/03/2020 1:22 PM DIRECTOR CLINICAL PHARMACOLOGY): Weight/BMI is in healthy range. Continue healthy [...] 60 Assessment & Plan (10/23/2024 10:16 PM DIRECTOR CLINICAL PHARMACOLOGY): Stable with Cymbalta 60. Discussed increasing for [...] Wellbutrin Assessment & Plan (11/25/2023 10:37 AM DIRECTOR CLINICAL PHARMACOLOGY): Stable with Wellbutrin and Cymbalta Assessment & Plan (11/15/2023 9:53 PM DIRECTOR CLINICAL PHARMACOLOGY): Depression has been stable with Cymbalta Wellbutrin XL 150 Assessment & Plan (06/23/2023 9:01 AM CDT): Stable with Cymbalta 60 Wellbutrin XL 150 Assessment & Plan (12/22/2022 8:52 PM DIRECTOR CLINICAL PHARMACOLOGY): This is a significant, separately identifiable problem [...] cymbalta Assessment & Plan (01/17/2021 9:08 PM DIRECTOR CLINICAL PHARMACOLOGY): Improving/stable with cymbalta. Assessment & Plan (07/15/2020 8:15 PM CDT): Continue cymbalta Assessment & Plan (01/03/2020 1:22 PM DIRECTOR CLINICAL PHARMACOLOGY): Improving/ more stable. Continue with the Cymbalta [...] Will check immunoglobulins with labs. Discussed seeing lean manufacturing leader if they come back low. Encounter for long-term (cur rent) use of other medications 05/15/2017 07/03/2018
--- OUTSIDE RECORDS SUMMARY | 2025-07-28 16:21 | XMS_ITS | Clinical Summary ---
Author Organization [facility] Address [address], [address] [place] [address] Phone Care Team Providers Care Antisqueak Chalker Name Role Phone Tomas Williamson MD Primary Care Provider [phone] Patricio Lacey DO Unavailable [phone] Allergies No known active allergies Medications Biotin 1 MG Capsule Take by mouth. Activ e cevimeline (EVOXAC) 30 MG Capsule Take 30 mg by mouth nightly. Active Cholecalciferol (Vitamin D3) 125 mcg Capsule Take 1 Capsule by mouth daily. Active DULoxetine (CYMBALTA) [address] Particles Take 60 mg by mouth daily. Active omeprazole (PriLOSEC) 40 MG CAPSULE DELAYED RELEASE Take 40 mg by mouth daily. Active Upadacitinib ER (Rinvoq) 15 MG TABLET SR 24 HR Take 15 mg by mouth daily. Active Sennosides 8.6 MG Capsule Take 8.6 mg by mouth 2 times daily. Active albuterol 108 (90 Base) MCG/ACT Aerosol Solution take 2 Puffs by inhalation every 6 hours as needed. 4 Active Cyanocobalamin (B-12 PO) Take by mouth. Activ e Ascorbic Acid 100 MG Tablet Take 100 mg by mouth. Active Omeprazole Magnesium 20 MG Tablet Delayed Response Take 20 mg by mouth. 0 Active baclofen (LIORESAL) 10 MG Tablet TAKE 1 TABLET BY MOUTH TWICE A DAY NEEDED FOR SPASMS 5 Active Cyanocobalamin 500 MCG Tablet Take 500 mcg by mouth. Active rosuvastatin (CRESTOR) 20 MG Tablet Take 20 mg by mouth daily. Active Active Problems Problem Noted Date Diagnosed Date Elevated blood pressure reading 12/28/2024 Encounters Date Type Department Care Team Description 05/03/2025 10:00 AM CDT Office Visit [facility] [address] [id number] Elba Kelly, CYLINDER DYER, WEB MERCHANDISER Refractory anemia, unspecified (HCC) (Primary Dx) 05/03/2025 9:45 AM CDT Lab [facility] [address] [id number] Lab, [facility] [place] Refractory anemia, unspecified (HCC) 05/03/2025 Travel from Last 3 Months Family History Medical History Relation Name Comments Dementia Father Alzheimer's Disease Mother Relation Name Status Comments Brother 1 Alive Brother 2 Alive heart surgery Child fentanyl Father Mother Social History Tobacco Use Types Packs/Day Years Used Date Smoking Tobacco: Former Cigarettes Smokeless Tobacco: Never Tobacco Cessation:Counseling Given: Not Answered Alcohol Use Standard Drinks/Week Comments Yes 5 (1 standard drink = 0.6 oz pur e alcohol) Comments Unknown Sex and Gender Information Value Date Recorded Sex Assigned at Not on file Legal Sex Female 12:44 PM SEASONING SPRAYER Gender Identity Not on file Sexual Orientation Not on file Last Filed Vital Signs Vital Sign Reading Time Taken Comments Blood Pressure 136/82 05/03/2025 9:55 AM CDT Pulse 67 05/03/2025 9:55 AM CDT Temperature 36.2 C (97.1 F) 05/03/2025 9:55 AM CDT Respiratory Rate 18 05/03/2025 9:55 AM CDT Oxygen Saturation 97% 05/03/2025 9:55 AM CDT Inhaled Oxygen Concentration - - Weight 66.7 kg (147 lb 1.6 oz) 05/03/2025 9:55 A M CDT Height 167.6 cm (5' 6) 05/03/2025 9:55 AM CDT Body Mass Index 23.74 05/03/2025 9:55 AM CDT Plan of Treatment Upcoming Encounters Date Type Department Care Team (Late st Contact Info) Description 11/01/2025 9:45 AM SEASONING SPRAYER Lab [facility] [address] [id number] Lab, [facility] 11/01/2025 10:00 AM SEASONING SPRAYER Office Visit [facility] [address] [phone] Patricio Lacey, [address] [place] [phone] Health Maintenance Due Date Last Done Comments DEXA Bone Density 1945 Hepatitis C Virus (HCV) Screening 1945 Zoster Immunization (3 of 3) 11/27/2020 10/02/2020, 07/26/2015 Respiratory Syncytial Virus (RSV) Immunization (Adult) (1 - 1-dose 75+ series) 2021 Influenza Immunization (#1) 07/18/202507/2024, 09/10/2023, 08/22/2022, Additional history exists SARS-COV-2 Immunization ( season) 2025 11/26/2021, 03/31/2021, 02/17/2021 Pneumococcal Immunization (50+ years) Completed 08/30/2019, 02/15/2015, 12/23/2014 TdaP Immunization Completed 07/28/2021, 06/10/2011 Hepatitis B Immunization Aged Out No longer eligible based on patient's age to complete this topic Human Papillomavirus (HPV) Immunization Aged Out No longer eligible based on patient's age to complete this topic Meningococcal Immunization (ACWY) Aged Out No longer eligible based on patient's age to complete this topic Rotavirus Immunization Aged Out No lo nger eligible based on patient's age to complete this topic Procedures Procedure Name Priority Date/Time Associated Diagnosis Comments CBC WITH AUTO DIFF OH Routine 05/03/2025 9:46 AM CDT CMP (COMPREHENSIVE METABOLIC PANEL) Routine 05/03/2025 9:46 AM CDT Refractory anemia, unspecified (HCC) from Last 3 Months Results * (ABNORMAL) CBC WITH AUTO DIFF [place] (05/03/2025 9:46 AM CDT) WBC 5.9 4.0 - 10.0 10*3/uL [facility] HGB 10.2(L) 11.2 - 15.7 g/dL [facility] HCT 31.8(L) 34.1 - 44.9 % [facility] PLT 222 163 - 369 10*3/uL [facility] MPV 10.1 9.4 - 12.4 fL [facility] RBC 3.13(L) 3.93 - 5.22 10*6/uL [facility] MCV 102(H) 79 - 95 fL [facility] MCH 32.6(H) 25.6 - 32.2 pg [facility] MCHC 32.1(L) 32.2 - 36.5 g/dL [facility] RDW 14.5(H) 11.6 - 14.4 % [facility] Neutrophils % 67.7(H) 36.0 - 66.0 % [facility] Lymphocytes % 17.6(L) 19.0 - 40.0 % [facility] Monocytes % 13.2(H) 4.1 - 12.1 % [facility] Eosinophils % 1.0 0.0 - 3.5 % [facility] Basophils % 0.3 0.0 - 1.0 % [facility] Absolute Neutrophils 4.0 1.4 - 6.6 10*3/uL [facility] Absolute Lymphocytes 1.0 0.8 - 4.0 10*3/uL [facility] Absolute Monocytes 0.8 0.2 - 1.2 10*3/uL [facility] Absolute Eosinophils 0.1 0.0 - 0.4 10*3/uL [facility] Absolute Basophils 0.0 0.0 - 0.1 10*3/uL [facility] 05/03/2025 9:46 AM CDT Coni Nichols CYLINDER DYER, WEB MERCHANDISER LAB SEND OUTS Final Result [facility] [place] [address], * (ABNORMAL) CMP (COMPREHENSIVE METABOLIC PANEL) (05/03/2025 9:46 AM CDT) Glucose 91 70 - 105 mg/dL [facility] Blood Urea Nitrogen 27(H) 7 - 25 mg/dL [facility] Creatinine 1.1 0.6 - 1.2 mg/dL [facility] Sodium 141 136 - 145 mEq/L [facility] Potassium 4.2 3.5 - 5.1 mEq/L [facility] Chloride 106 98 - 107 mEq/L [facility] Bicarbonate 28 21 - 31 mEq/L [facility] Total Bilirubin 0.5 0.3 - 1.0 mg/dL [facility] Alk. Phosphatase 28(L) 34 - 104 U/L [facility] Aspartate Aminotransferase 30 13 - 39 U/L [facility] Alanine Aminotransferase 19 7 - 52 U/L [facility] Total Protein 7.1 6.4 - 8.9 g/dL [facility] Albumin 4.7 3.5 - 5.7 g/dL [facility] Calcium 9.7 8.6 - 10.3 mg/dL [facility] Anion Gap 11.2 7.0 - 15.0 mEq/L [facility] Globulin 2.4 2.0 - 3.5 g/dL [facility] EGFR 51(L) >60 ml/min/1. 73m2 [facility] Comment: This eGFR is calculated using 2020 CKD-EPI Creatinine equation without race modifier based on the NKF-ASN task force recommendations Equation: tKAN=103*min(SCr/k,1)a*max(SCr/k,1)-1.200*0.9938Age*1.012 (if female), where SCr is serum creatinine, k is 0.7 for females and 0.9 for males, and a is -0.241 for females and -0.302 for males Blood 05/03/2025 9:46 AM CDT Narrative [facility] - 05/03/2025 10:29 AM CDT Release to patient->Immediate IS THE PATIENT REQUIRED TO BE FASTING FOR 8 HOURS?->No us Coni Nichols CYLINDER DYER, WEB MERCHANDISER CHEMISTRY ORDERABLES Final Result [facility] [place] [address], [place] [phone] from Last 3 Months Insurance [facility]IC[facility] Care Teams Antisqueak Chalker Relationship Specialty Start Date End Date Tomas Williamson MD [address] [facility] [address] [address] PCP - General Family Medicine 12/07/24 Patricio Lacey DO [address] [place] [phone] Consulting Physician Oncology 12/14/24
--- OUTSIDE RECORDS SUMMARY | 2025-07-28 16:21 | XMS_ITS | Encounter Summary ---
Author Organization [facility] Care Team Providers Care Explosive Operator Grenade Name Role Phone Santosh PITTMAN MD, [facility]. Unavailable [phone] Tomas Williamson MD Primary Care Provider [phone] Lizzette Bunn Primary Care Provider [phone] Tomas Williamson MD Primary Care Provider [phone] Lizzette Bunn Primary Care Provider [phone] Tristan Henson MD Unavailable [phone] Encounter Details Date Type Department Care Team (Latest Contact Info) Description 01/20/2019 Orders Only [facility] CLINCONV ProviderPhilip MD [address] [place] [id number] Social History Tobacco Use Types Packs/Day Years Used Date Smoking Tobacco: Heavy Smoker Comments:Smoking History Pac ks/day: 1 Packs Alcohol Use Standard Drinks/Week Comments Yes 0 (1 standard drink = 0.6 oz pur e alcohol) Comments Unknown Sex and Gender Information Value Date Recorded Sex Assigned at Not on file Legal Sex Female 9:32 PM RECRUITMENT ADVERTISING MANAGER Gender Identity Female 01/05/2021 10:27 AM RECRUITMENT ADVERTISING MANAGER Sexual Orientation Straight 01/05/2021 10 :27 AM RECRUITMENT ADVERTISING MANAGER documented as of this encounter Plan of Treatment Not on file documented as of this encounter Procedures Procedure Name Priority Date/Time Associated Diagnosis Comments SCAN - LABS 01/20/2019 12:00 AM RECRUITMENT ADVERTISING MANAGER documented in this encounter Results * SCAN - LABS (01/20/2019 12:00 AM RECRUITMENT ADVERTISING MANAGER) Narrative 01/20/2019 12:00 AM RECRUITMENT ADVERTISING MANAGER Ordered by an unspecified provider. us Historical Provider Final Res ult documented in this encounter Visit Diagnoses Not on filedocumented in this encounter Additional Health Concerns Infection Onset Date Last Indicated Resolved Time COVID: Suspected 09/26/2020 09/27/2020 09/29/2020 5:07 AM RECRUITMENT ADVERTISING MANAGER Respiratory Infection (TYRONE), contact + droplet Comment:Automatically added due to negative COVID-19 result. 09/29/2020 09/29/2020 10/13/2020 3:0 6 AM RECRUITMENT ADVERTISING MANAGER COVID: Suspected 12/19/2020 12/20/2020 12/20/2020 9:28 PM RECRUITMENT ADVERTISING MANAGER COVID19 12/20/2020 12/20/2020 01/03/2021 3:07 AM RECRUITMENT ADVERTISING MANAGER COVID: Recovered Comment:Added based on recent COVID infection. 01/03/2021 01/03/2021 05/03/2021 3:05 AM C DT COVID: Suspected 07/05/2022 07/05/2022 07/05/2022 11:30 PM CDT COVID: Suspected 11/25/2023 11/25/2023 11/25/2023 10:13 AM RECRUITMENT ADVERTISING MANAGER documented as of this encounter Care Teams Explosive Operator Grenade Relationship Specialty Start Date End Date Tomas Williamson MD [address] [place] [address] PCP - General Family Medicine 01/01/19 07/28/19 Lizzette Bunn PA [address] [place] [address] PCP - General Internal Medicine 07/29/19 09/21/20 Tomas Williamson MD [address] [place] [address] PCP - General Family Medicine 09/22/20 09/25/20 Lizzette Bunn PA [address] [facility] [address] [place] [address] PCP - General Internal Medicine 09/26/20 Andrew Frost III, MD [address] [place] [address] Rheumatology 09/26/17 07/28/19 Tristan Henson MD [address] [place] [address] Consulting Physician Rheumatology 03/29/24 documented as of this encounter
--- OUTSIDE RECORDS SUMMARY | 2025-07-28 16:21 | XMS_ITS | Encounter Summary ---
Author Organization [facility] Facility Care Team Providers Care [employer] Name Role Phone Santosh PITTMAN MD, [facility]. Unavailable [phone] Tomas Williamson MD Primary Care Provider [phone] Lizzette Bunn Primary Care Provider [phone] Tomas Williamson MD Primary Care Provider [phone] Lizzette Bunn Primary Care Provider [phone] Tristan Henson MD Unavailable [phone] Encounter Details Date Type Department Care Team (Latest Contact Info) Description 01/01/2019 Orders Only [facility] ProviderPhilip MD [address] [place] [id number] Social History Tobacco Use Types Packs/Day Years Used Date Smoking Tobacco: Heavy Smoker Comments:Smoking History Pac ks/day: 1 Packs Alcohol Use Standard Drinks/Week Comments Yes 0 (1 standard drink = 0.6 oz pur e alcohol) Comments Unknown Sex and Gender Information Value Date Recorded Sex Assigned at Not on file Legal Sex Female 9:32 PM LUGGER Gender Identity Female 01/05/2021 10:27 AM LUGGER Sexual Orientation Straight 01/05/2021 10 :27 AM LUGGER documented as of this encounter Plan of Treatment Not on file documented as of this encounter Procedures Procedure Name Priority Date/Time Associated Diagnosis Comments SCAN - LABS 01/01/2019 12:00 AM LUGGER documented in this encounter Results * SCAN - LABS (01/01/2019 12:00 AM LUGGER) Narrative 01/01/2019 12:00 AM LUGGER Ordered by an unspecified provider. us Historical Provider Final Res ult documented in this encounter Visit Diagnoses Not on filedocumented in this encounter Additional Health Concerns Infection Onset Date Last Indicated Resolved Time COVID: Suspected 09/26/2020 09/27/2020 09/29/2020 5:07 AM LUGGER Respiratory Infection (TYRONE), contact + droplet Comment:Automatically added due to negative COVID-19 result. 09/29/2020 09/29/2020 10/13/2020 3:0 6 AM LUGGER COVID: Suspected 12/19/2020 12/20/2020 12/20/2020 9:28 PM LUGGER COVID19 12/20/2020 12/20/2020 01/03/2021 3:07 AM LUGGER COVID: Recovered Comment:Added based on recent COVID infection. 01/03/2021 01/03/2021 05/03/2021 3:05 AM C DT COVID: Suspected 07/05/2022 07/05/2022 07/05/2022 11:30 PM CDT COVID: Suspected 11/25/2023 11/25/2023 11/25/2023 10:13 AM LUGGER documented as of this encounter Care Teams [employer] Relationship Specialty Start Date End Date Tomas Williamson MD [address] [place] [address] PCP - General Family Medicine 01/01/19 07/28/19 Lizzette Bunn PA [address] [place] [address] PCP - General Internal Medicine 07/29/19 09/21/20 Tomas Williamson MD [address] [place] [address] PCP - General Family Medicine 09/22/20 09/25/20 Lizzette Bunn PA [address] [facility] [address] [place] [address] PCP - General Internal Medicine 09/26/20 Andrew Frost III, MD [address] [place] [address] Rheumatology 09/26/17 07/28/19 Tristan Henson MD [address] [place] [address] Consulting Physician Rheumatology 03/29/24 documented as of this encounter
== END 2025-07-28 14:37 | disposition home or self-care (01) ==
PROVIDERS: PCP Physician Assistant; Visit Provider Physician Assistant
DX: R10.31 Right lower quadrant pain (principal)
CPT/HCPCS: 73502

== ENCOUNTER 2025-09-02 22:16 | Emergency (ER) | payer MEDICARE, SELFPAY ==
[2025-09-02 22:22] VITALS: BP 153/63; PULSE 76; RESP 18; TEMP 36.4; O2SAT 98
== END 2025-09-03 02:51 | disposition left against medical advice (07) ==
PROVIDERS: PCP Physician Assistant
DX: M25.511 Pain in right shoulder (principal)
CPT/HCPCS: 99199

== ENCOUNTER 2025-09-05 14:08 | Emergency (ER) | payer MEDICARE, SELFPAY ==
[2025-09-05 14:17] VITALS: BP 132/66; PULSE 78; RESP 16; TEMP 36.2; O2SAT 99
--- NOTE | 2025-09-05 17:13 | ED_ITS ---
HPI - Extremity Injury (Upper) General Chief Complaint: Extremity Injury, Upper Stated Complaint: RT Shoulder Pain Time Seen by Provider: 09/05/25 14:29 Source: patient and RN notes reviewed Mode of arrival: ambulatory Limitations: no limitations History of Present Illness HPI narrative: 80-year-old female patient with history of rheumatoid arthritis and high cholesterol presents today complaining of a 3 month history of right shoulder pain. She was then sent to physical therapy which helped resolve her pain. Three days ago she was working in her yard and picked up a heavy bag. She had no immediate or sudden pain, but did have pain in the shoulder the next day. The pain waxes and wanes, but she currently rates it 4/10. She takes Tylenol for her pain, but it does not provide much relief. States she was here at Urgent Care several months ago with similar pain it was treated with prednisone, and states this helped significantly. Denies numbness or tingling. Related Data Home Medications ?Medication ?Instructions ?Recorded ?Confirmed ?Last Taken ?Type duloxetine 60 mg capsule,delayed 60 mg PO DIRECTED 02/06/22 08/14/23 Unknown History release omeprazole 40 mg capsule,delayed 40 mg DIRECTED 08/14/23 Unknown History release rosuvastatin 20 mg tablet 20 mg DIRECTED 02/06/22 0 08/14/23 Unknown History Allergies Allergy/AdvReac Type Severity Reaction Status Date / Time No Known Allergies Allergy Unknown Verified 09/05/25 14:25 [facility] Past Medical History Medical History GERD (gastroesophageal reflux disease) Anxiety Depression Hypercholesterolemia Rheumatoid arthritis Surgical History Surgical History History of hysterectomy Comments At time of signature, I have reviewed and agree with nursing past medical, surgical, social and family history unless otherwise noted. Please see nursing chart for further information. There is no relevant family history pertinent to the presenting complaint Exam Narrative: GENERAL: Well-appearing, well-nourished, and in no acute distress. HEAD: Normocephalic, atraumatic. EYES: EOMI. No redness or drainage. Conjunctivae normal. ENT: Mucous membranes pink and moist. NECK: Normal AROM. Nontender CHEST: No respiratory distress. EXTREMITIES: Right shoulder: tender anterior, posterior, and lateral shoulder. No edema, ecchymosis, or erythema noted. No crepitus noted. Very mild pain with P ROM in all directions. Distal sensation intact. Capillary refill normal. Radial pulse normal. SKIN: Warm, dry, no rash. Capillary refill normal. Normal skin turgor. NEURO: No focal deficits. Alert and oriented x3. Gait steady. PSYCH: Normal affect. No signs of depression or anxiety. Course Course Level of Care: Express Care Visit Vital Signs Vital signs: Vital Signs Temperature 97.1 F L 09/05/25 14:17 Pulse Rate 78 09/05/25 14:17 Respiratory Rate 16 09/05/25 14:17 Blood Pressure 132/66 09/05/25 14:17 Pulse Oximetry 99 09/05/25 14:17 Oxygen Delivery Room Air 09/05/25 14:17 Temperature 97.1 F L 09/05/25 14:17 Pulse Rate 78 09/05/25 14:17 Respiratory Rate 16 09/05/25 14:17 Blood Pressure 132/66 09/05/25 14:17 Pulse Oximetry 99 09/05/25 14:17 Oxygen Delivery Room Air 09/05/25 14:17 Reviewed MDM - Extremity Injury (Upper) MDM Narrative Medical decision making narrative: 80-year-old female patient with history of rheumatoid arthritis and high cholesterol presents today complaining of a 3 month history of right shoulder pain. She was then sent to physical therapy which helped resolve her pain. Three days ago she was working in her yard and picked up a heavy bag. She had no immediate or sudden pain, but did have pain in the shoulder the next day. The pain waxes and wanes, but she currently rates it 4/10. She takes Tylenol for her pain, but it does not provide much relief. Upon exam, patient has generalized tenderness about the shoulder without edema, ecchymosis, erythema. She also has some discomfort with range of motion. Neurovascularly intact. Will treat her discomfort with a Medrol Dosepak. Recommend continuing Tylenol as well with PCP follow-up in 1 week if symptoms persist. Patient agrees with plan. Vital signs stable. Anticipatory guidance given. Differential Diagnosis Differential diagnosis: Likely other (shoulder strain, OA, RA flare, tendonitis) Critical Care Time Critical Care Time Critical Care Time: No Discharge Plan Discharge Clinical Impression: Acute pain of right shoulder Patient Disposition: Home Condition: Stable Instructions: Shoulder Pain (ED) Additional Instructions: Please take the Medrol as prescribed. Continue Tylenol for discomfort if needed. Please follow-up with your PCP in 1 week if symptoms persist, or if they return. Patient Language: Kuwaiti Prescriptions: New methylprednisolone [Medrol (Linus)] 4 mg tablets,dose pack See Rx Instructions .ROUTE .COMPLEX Qty: 21 0RF Rx Instructions: orally per package directions No Action omeprazole 40 mg capsule,delayed release(DR/EC) 40 mg DIRECTED rosuvastatin 20 mg tablet 20 mg DIRECTED duloxetine 60 mg capsule,delayed release(DR/EC) 60 mg PO DIRECTED Follow-up/Referrals: Sepideh,POWER Crocker [Primary Care Provider, Unknown] Time of Disposition: 14:40
== END 2025-09-05 14:45 | disposition home or self-care (01) ==
PROVIDERS: Emergency Provider Nurse Practitioner; PCP Physician Assistant
DX: M25.511 Pain in right shoulder (principal); E78.00 Pure hypercholesterolemia, unspecified; R06.9 Unspecified abnormalities of breathing; K21.9 Gastro-esophageal reflux disease without esophagitis
CPT/HCPCS: 99213; G0463

== ENCOUNTER 2025-10-18 13:38 | Emergency (ER) | payer MEDICARE, SELFPAY ==
[2025-10-18 13:49] VITALS: BP 128/70; PULSE 86; RESP 20; TEMP 36.9; O2SAT 98
--- NOTE | 2025-10-18 14:01 | ED.UPPEXIN ---
HPI - Extremity Injury (Upper) General Chief Complaint: Extremity Injury, Upper Stated Complaint: Right Shoulder Pain Time Seen by Provider: 10/18/25 14:01 Source: patient, RN notes reviewed and old records reviewed Mode of arrival: ambulatory Limitations: no limitations History of Present Illness HPI narrative: 80-year-old female presents to the [facility] with continued right shoulder pain. No known injury. patient states after the last time she was seen on September 05 and complaining a steroid states that symptoms did improve, Did not follow-up with primary care provider. States that approximately the 17 of September her symptoms returned. States that she was pulling weeds. Does have good range of motion. Reports pain when raising her arm. reports when she moves her arm around the muscles get tight and then tingling starts below the tightness area. Related Data Home Medications ?Medication ?Instructions ?Recorded ?Confirmed ?Last Taken ?Type duloxetine 60 mg capsule,delayed 60 mg PO DIRECTED 02/06/22 08/14/23 Unknown History release omeprazole 40 mg capsule,delayed 40 mg DIRECTED 02/06/22 08/14/23 Unknown History release rosuvastatin 20 mg tablet 20 mg DIRECTED 02/06/22 08/14/23 Unknown History cevimeline 30 mg capsule 10/18/25 Unknown History Allergies Allergy/AdvReac Type Severity Reaction Status Date / Time No Known Allergies Allergy Unknown Verified 10/18/25 13:40 Review of Systems Review of Systems: All systems reviewed & are unremarkable except as noted in HPI and below Constitutional: Constitutional: Reports no additional constitutional complaints ENT: Reports system reviewed and no additional complaints, except as documented Cardiovascular: Cardiovascular: Reports no additional cardiovascular complaints, Denies chest pain and Denies dyspnea Respiratory: Respiratory: Reports no additional respiratory complaints, Denies chest congestion, Denies cough and Denies dyspnea Musculoskeletal: Musculoskeletal: Reports as per HPI, Reports arthralgias ( Right shoulder) and Denies joint swelling Integumentary/Breasts: Skin/Breast: Reports system reviewed and no additional complaints, except as docu PMFSH Past Medical History Medical History GERD (gastroesophageal reflux disease) Anxiety Depression Hypercholesterolemia Rheumatoid arthritis Surgical History Surgical History History of hysterectomy Comments At the time of my signature, I reviewed and agree with the nursing past medical, surgical, social, and family history. There is no relevant family history pertinent to the patient complaint. Exam Const: General: cooperative, healthy appearing, comfortable, no acute distress, well developed, alert and well nourished Nutritional Appearance: well nourished Orientation/consciousness: patient oriented x3 Limitations: no limitations HENMT: Head: normal to inspection Face and sinus: face symmetric Mouth: Yes Normal oral and palatal mucosa present, Yes lip normal, Yes tongue normal and Yes moist mucous membranes Eyes: General: appearance normal, both eyes and all related structures Alignment and Position: alignment normal Neck: Neck: normal visual inspection, full ROM, no lymphadenopathy and no meningeal signs Chest: Chest palpation & inspection: normal inspection of the chest Resp: Effort & Inspection: normal respiratory effort and able to speak in complete sentences Auscultation: clear to auscultation bilaterally, no crackles, no rales, no rhonchi and no wheezes Cardio: Rate: regular rate Back/Spine/Pelvis: Back: no CVA tenderness Skin: General skin exam: normal color and no rashes or lesions noted Neuro: General: patient oriented x3, gait normal, moves all extremities and no meningeal signs Cognition (Neuro): normal cognition Speech: normal speech Gait exam (Neuro): Normal gait present Extrem: General: normal to inspection, full ROM, capillary refill normal and normal gait Right upper extremity: full ROM, normal capillary refill, shoulder/upper arm tenderness ( Generalized) and normal ROM; no swelling, no abrasions, no lacerations, no ecchymosis, no foreign bodies, no penetrating wound and no deformity, elbow/forearm normal to inspection and normal ROM and wrist normal to inspection, normal ROM and radial pulse present 2+; no swelling Psych: Appearance: grossly normal and well kempt Mental Status: mental status grossly normal Speech and movement: Normal speech and movement present and Clear speech present Affect: normal affect Attitude: cooperative Course Course Level of Care: Express Care Visit Vital Signs Vital signs: Vital Signs Temperature 98.5 F 10/18/25 13:49 Pulse Rate 86 10/18/25 13:49 Respiratory Rate 20 10/18/25 13:49 Blood Pressure 128/70 10/18/25 13:49 Pulse Oximetry 98 10/18/25 13:49 Oxygen Delivery Room Air 10/18/25 13:49 Temperature 98.5 F 10/18/25 13:49 Pulse Rate 86 10/18/25 13:49 Respiratory Rate 20 10/18/25 13:49 Blood Pressure 128/70 10/18/25 13:49 Pulse Oximetry 98 10/18/25 13:49 Oxygen Delivery Room Air 10/18/25 13:49 reviewed MDM MDM Narrative Medical decision making narrative: patient sitting in exam room. Patient is nontoxic, vitals stable patient presents with returning right shoulder pain after receiving steroids which she reports is better. Requesting additional steroids. Due to patient's age. Unable to visualize any recent labs. Discussed that steroids are not indicated, too soon since previous steroids. Offered a muscle relaxer, sent discussed that this is reoccurring and she should follow-up with primary care provider in orthopedic for further evaluation. Differential Diagnosis Differential Diagnosis: Differential diagnostic considerations for upper extremity injury include sprain/strain of wrist, fracture of wrist, dislocation of shoulder, fracture of humerus, fracture of clavicle, laceration, tendon injury, carpal tunnel syndrome.? Critical Care Time Critical Care Time Critical Care Time: No Discharge Plan Discharge Clinical Impression: Chronic pain in right shoulder Patient Disposition: Home Condition: Stable Instructions: Shoulder Pain (ED) Additional Instructions: take Tylenol as needed for pain Take Baclofen (muscle relaxer) as directed. Do not drink, drive, operate machinery, or do anything dangerous while taking this medication Exercise:Combine aerobic exercise, like walking or swimming, with specific exercises to keep the muscles in your back and abdomen strong and flexible. Proper Lifting:Be sure to lift heavy items with your legs, not your back. Do not bend over to pick something up. Keep your back straight and bend at your knees. Proper Posture:Good posture is important for avoiding future problems. A therapist can teach you how to safely stand, sit, and lift. Use warm moist heat to help with pain. Using topical such as Biofreeze, Bryce-Garcia or Aspercreme can also help Follow up with Primary provider in 2-3 days, This has become achronic condition and they will be the one to help manage your pain and order additional testing. primary care can refer you to orthopedist or to physical therapy for new or worsening symptoms go directly to the emergency Patient Language: Tajik Prescriptions: New baclofen 10 mg tablet 10 mg PO TID PRN (Reason: muscle pain) Qty: 15 0RF No Action omeprazole 40 mg capsule,delayed release(DR/EC) 40 mg DIRECTED rosuvastatin 20 mg tablet 20 mg DIRECTED duloxetine 60 mg capsule,delayed release(DR/EC) 60 mg PO DIRECTED cevimeline 30 mg capsule Follow-up/Referrals: Sepideh,POWER Crocker [Primary Care Provider, Unknown] - 1 Week Clinical Impression: Chronic pain in right shoulder Time of Disposition: 14:16
== END 2025-10-18 14:20 | disposition home or self-care (01) ==
PROVIDERS: Emergency Provider Nurse Practitioner; PCP Physician Assistant
DX: G89.29 Other chronic pain (principal); M25.511 Pain in right shoulder; E78.00 Pure hypercholesterolemia, unspecified; M06.9 Rheumatoid arthritis, unspecified; K21.9 Gastro-esophageal reflux disease without esophagitis
CPT/HCPCS: 99213; G0463